=== PATIENT | female | born 1935 | race Caucasian/White ===

== ENCOUNTER 2017-03-20 11:15 | Emergency (ER) | payer OTHER ==
[~2017-03-20] VITALS: Ht 157.5 cm; Wt 79.5 kg
[~2017-03-20 11:15] MED LIST: ATOR20TA38 PO; BETH25TA39 PO; CARV12.579 PO; CHLO25TA13 PO; CHOL50009 PO; CLOP75TA27 PO; DOCU-144 PO; ERTA1VIA IV; LEVO50TA83 PO; METF500T4 PO; OMEP20CA16 PO; TAMS-14 PO
[2017-03-20 11:24] VITALS: Ht 157.5 cm; Wt 79.5 kg
--- NOTE | 2017-03-20 13:34 | ERD ---
ER Documentation Chief Complaint Date/Time DATE: 03/20/17 TIME: 13:32 Chief Complaint URINE RETENTION CATH PLACED MONDAY WANTS CATH CHECKED/REMOVED HPI This 81-year-old female presents with a history of urinary retention and catheter placement [id number] last week. She is here for catheter removal. She denies fevers, vomiting, history of UTI. She had this once before in the past. She believes the urinary retention may be an from long car rides and plane rides and holding her urine. She has a history of diabetes. ROS All systems reviewed and are negative except as per history of present illness. Medications Home Meds Active Scripts Ertapenem Sodium (Invanz) 1 Gm Vial.port, 1 GM IV DAILY for 9 Days Prov:HIRAM GARCIA V. TAILER IN 04/04/16 Tamsulosin Hcl* (Flomax*) 0.4 Mg Cap.er.24h, 0.4 MG PO HS for 30 Days, CAP Prov:GARCIAKARENA V. TAILER IN 04/04/16 Docusate Sodium* (Colace*) 100 Mg Capsule, 100 MG PO Q12H Y for CONSTIPATION for 30 Days, CAP Prov:GARCIAHIRAM V. TAILER IN 04/04/16 Bethanechol Chloride* (Urecholine*) 25 Mg Tab, 25 MG PO TID for 30 Days, TAB 3 Refills Prov:KAVITHA VAZQUEZ 01/03/16 Reported Medications Carvedilol* (Carvedilol*) 12.5 Mg Tablet, 12.5 MG PO BID, #60 TAB 03/31/16 Omeprazole* (Omeprazole*) 20 Mg Capsule.dr, 20 MG PO DAILY, CAP 06/11/15 Clopidogrel Bisulfate (Clopidogrel) 75 Mg Tablet, 75 MG PO DAILY, TAB 07/19/14 Atorvastatin Calcium* (Atorvastatin Calcium*) 20 Mg Tablet, 20 MG PO HS, TAB 07/19/14 Chlorthalidone* (Chlorthalidone*) 25 Mg Tablet, 25 MG PO DAILY, TAB 07/19/14 Metformin Hcl* (Metformin Hcl*) 500 Mg Tablet, 500 MG PO DAILY, TAB 07/19/14 Cholecalciferol* (Vitamin D*) 5,000 Unit Tablet, 5000 UNIT PO DAILY, #1 TAB 05/12/13 Levothyroxine Sodium* (Synthroid*) 50 Mcg Tablet, 50 MCG PO DAILY, #1 TAB 05/12/13 Allergies Allergies: Coded Allergies: No Known Allergies (Verified Allergy, Unknown, 03/31/16) PMhx/Soc Medical and Surgical Hx: pt denies Medical Hx, pt denies Surgical Hx History of Surgery: No Anesthesia Reaction: No Hx Neurological Disorder: Yes (CVA) Hx Respiratory Disorders: No Hx Cardiac Disorders: Yes (CAD,STENT) Hx Psychiatric Problems: No Hx Miscellaneous Medical Probl: Yes (UTI, hyponatremia,CAD,htn,obesity, hypothyroidism) Hx Alcohol Use: No Hx Substance Use: No Hx Tobacco Use: No Physical Exam Vitals Vital Signs Date Time Temp Pulse Resp B/P Pulse Ox O2 Delivery O2 Flow Rate FiO2 03/20/17 11:24 98.2 84 18 156/68 94 Physical Exam Const: []Alert, [id number]. Obese. Head: Atraumatic Eyes: Normal Conjunctiva ENT: Normal External Ears, Nose and Mouth. Neck: Full range of motion..~ No meningismus. Resp: Clear to auscultation bilaterally Cardio: Regular rate and rhythm, no murmurs Abd: Soft, non tender, non distended. Normal bowel sounds Skin: No petechiae or rashes Back: No midline or flank tenderness Ext: No cyanosis, or edema Neur: Awake and alert Psych: Normal Mood and Affect Procedures/MDM Greer catheter removed without complications. Patient presents with a history of hypertension currently improved as she is able to urinate. Patient was discharged home with primary care follow-up and return precautions. She is advised to return for fevers, vomiting, inability to urinate abdominal pain, new worsening symptoms with primary care doctor. The patient was stable with no new complaints during the ER course. Clinically, there is no current evidence to suggest meningitis, sepsis, acute abdomen, pneumonia, acute coronary syndrome, pulmonary embolism, or any other emergent condition appearing to require further evaluation or hospitalization. The patient should certainly return for any new or worsening symptoms per the aftercare instructions. They should otherwise follow-up with her primary care doctor for reevaluation this week. Departure Diagnosis: Primary Impression: Retention of urine Condition: Stable Patient Instructions: Urinary Retention, Female Additional Instructions: Cheque otro vez con peña doctor primario en el proximo steele or regresa para mas o nueva simptomas. TATYANA PRINGLE MD Mar 20, 2017 13:34
[2017-03-21] MEDS ORDERED: CEPH-443 PO (12:03)
[2017-03-21] MEDS ORDERED: PHEN-538 PO (12:03)
== END 2017-03-20 13:41 | disposition home or self-care (01) ==
LOC: FTE 11:15
DX: R33.9 Retention of urine, unspecified (principal); I25.10 Atherosclerotic heart disease of native coronary artery without angina pectoris; I10 Essential (primary) hypertension; E03.9 Hypothyroidism, unspecified; E66.9 Obesity, unspecified; Z68.32 Body mass index [BMI] 32.0-32.9, adult; Z79.84 Long term (current) use of oral hypoglycemic drugs; Z98.61 Coronary angioplasty status
CPT/HCPCS: 99283

== ENCOUNTER 2017-03-21 09:16 | Emergency (ER) | payer OTHER ==
[~2017-03-21] VITALS: Ht 149.9 cm; Wt 90.5 kg
[2017-03-21 09:35] VITALS: Ht 149.9 cm; Wt 90.5 kg
[2017-03-21] MEDS ORDERED: ONDANSETRON 4 MG INJ IV STA (09:57)
[2017-03-21] MEDS ORDERED: morphine 4 MG/ML VIAL IV STA (09:57)
[2017-03-21 10:56] LABS: BASOPHIL # 0.1 10^3/ul (0.0-0.1); BASOPHILS % 0.6 % (0.0-2.0); EOSINOPHILS # 0.3 10^3/ul (0.0-0.5); EOSINOPHILS % 2.7 % (0.0-7.0); HEMATOCRIT 32.4 % (37.0-47.0); HEMOGLOBIN 10.7 g/dl (12.0-16.0); LYMPHOCYTES # 2.2 10^3/ul (0.8-2.9); LYMPHOCYTES % 21.6 % (15.0-51.0); MEAN CORPUSCULAR HEMOGLOBIN 28.2 pg (29.0-33.0); MEAN CORPUSCULAR VOLUME 85.5 fl (82.0-101.0); MEAN PLATELET VOLUME 9.6 fl (7.4-10.4); MONOCYTE # 0.8 10^3/ul (0.3-0.9); MONOCYTES % 7.6 % (0.0-11.0); NEUTROPHILS % 67.2 % (39.0-77.0); PLATELET COUNT 204 10^3/UL (140-415); RED BLOOD COUNT 3.79 10^6/ul (4.20-5.40); RED CELL DISTRIBUTION WIDTH 13.8 % (11.5-14.5); WHITE BLOOD COUNT 10.1 10^3/ul (4.8-10.8)
--- NOTE | 2017-03-21 11:09 | RADRPT ---
PROCEDURE: CT Abdomen and Pelvis without contrast CLINICAL INDICATION: Abdominal pain TECHNIQUE: Transaxial images were obtained through the abdomen and pelvis on a multi-slice scanner without the intravenous contrast administration. No oral contrast had previously been given. Sagit abhi and coronal re-formations were subsequently reconstructed. One or more of the following dose reduction techniques were used: - Automated exposure control. - Adjustment of the mA and/or kV according to patient size. - Use of iterative reconstruction technique. Radiation dose: CTDIvol = 20.89 mGy; DLP = 1178.66 mGy-cm. COMPARISON: 07/19/2014 FINDINGS: Lung bases: The visualized lung bases appear unremarkable. Liver: Normal in size and in attenuation. There is no focal lesion. Gallbladder: Surgical taisha are again seen in the gallbladder fossa. Bile ducts: The intra and extrahepatic bile ducts are normal in caliber. Pancreas: Appears normal with no mass or inflammation evident. Spleen: Normal in size with no focal lesion. Adrenals: Normal with no mass identified. Kidneys, ureters and bladder: There is mild bilateral pelvocaliectasis and mild ureterectasis with n o intra renal mass or pathological calcification evident. There is minimal bilateral perinephric str anding. No ureterolith is evident. The bladder appears well distended and unremarkable. Reproductive organs: A 12 x 11 x 10 cm left adnexal cystic mass is identified which measures 16 HU i n density. This has slightly increased in size since the previous study. This lesion displaces the u terus significantly rightward. Stomach and bowel: The stomach is mildly distended with food debris. The sigmoid colon is mildly dis placed by the pelvic mass. A few diverticuli are seen within the colon. There is no evidence of hussain l obstruction or inflammation. Appendix: A normal vermiform appendix is evident. Peritoneum: No free intraperitoneal fluid or air is identified. Aorta: There is atherosclerotic vascular calcification but no abdominal aortic aneurysm is evident. IVC: Unremarkable. Lymph nodes: No pathologically enlarged nodes are identified. Osseous structures: There is moderate degenerative enthesopathy seen to the spine most extensive in the thoracic region. There is grade 1 anterolisthesis of L4 and L5 associated degenerative facet karyna nges. A 9 mm cyst is seen within the posterior left femoral head. IMPRESSION: 1. Since the previous CT of 07/19/2014, the left adnexal cystic mass has slightly increased in size now measuring 12 x 11 x 10 cm. The mass measures 16 HU in density with no nodularity or septations identified. This possibly represents an endometrioma. 2. The mass displaces sigmoid colon and the uterus is significantly deviated to the right. 3. There are a few colonic diverticuli but no evidence of bowel obstruction or inflammation. A norm al vermiform appendix is evident. 4. Mild pelvocaliectasis and minimal dilatation of the ureters, likely related to compression secon renetta to the pelvic mass. No ureterolith is identified. 5. There is again evidence of a previous cholecystectomy not associated bile duct dilatation. 6. Atherosclerotic vascular calcification. 7. Degenerative enthesopathy seen to the spine most extensive within the thoracic region. There is grade 1 anterolisthesis of L4 and L5 with degenerative facet changes. A 9 mm cyst is seen in the pos terior left femoral head, slightly increased in size. Physician Ricky Date Time Electronically viewed and signed by Physician Ricky on 03/21/2017 11:08 /
[2017-03-21 11:15] LABS: ALANINE AMINOTRANSFERASE 36 IU/L (13-69); ALBUMIN 3.9 g/dl (3.3-4.9); ALBUMIN/GLOBULIN RATIO 1.21; ALKALINE PHOSPHATASE 86 IU/L (42-121); ASPARTATE AMINO TRANSFERASE 21 IU/L (15-46); BILIRUBIN,INDIRECT 0.5 mg/dl (0-1.1); BILIRUBIN,TOTAL 0.5 mg/dl (0.2-1.3); BLOOD UREA NITROGEN 19 mg/dl (7-20); CALCIUM 9.3 mg/dl (8.4-10.2); CARBON DIOXIDE 31 mmol/L (21-31); CHLORIDE 95 mmol/L (97-110); GLUCOSE 111 mg/dl (70-220); POTASSIUM 4.3 mmol/L (3.5-5.1); TOTAL PROTEIN 7.1 g/dl (6.1-8.1)
[2017-03-21 11:28] LABS: ANION GAP 11 (8-16); SODIUM 133 mmol/L (135-144)
[2017-03-21 11:37] LABS: ADD UMIC YES; UR AMORPHOUS CRYSTAL FEW /HPF (NONE SEEN); UR ASCORBIC ACID NEGATIVE (NEGATIVE); UR BACTERIA FEW /HPF (NONE SEEN); UR BILIRUBIN (Dip) NEGATIVE (NEGATIVE); UR BLOOD (Dip) 2+ mg/dL (NEGATIVE); UR CLARITY CLOUDY (CLEAR); UR COLOR YELLOW (YELLOW); UR GLUCOSE (Dip) NEGATIVE (NEGATIVE); UR KETONES (Dip) NEGATIVE (NEGATIVE); UR LEUKOCYTE ESTERASE (Dip) 3+ Leu/ul (NEGATIVE); UR NITRITE (Dip) POSITIVE (NEGATIVE); UR NONSQUAMOUS EPITHELIAL CELL 1 /HPF (NONE SEEN); UR RBC 24 /HPF (0-5); UR SPECIFIC GRAVITY (Dip) 1.009 (1.003-1.030); UR TOTAL PROTEIN (Dip) 1+ mg/dl (NEGATIVE); UR UROBILINOGEN (Dip) NEGATIVE (NEGATIVE); UR WBC CLUMPS MANY /HPF (NONE SEEN)
[2017-03-21 11:45] LABS: TROPONIN-I < 0.012 ng/ml (0.00-0.12)
[2017-03-21] MEDS ORDERED: PHEN-538 PO (12:03)
[2017-03-21] MEDS ORDERED: CEPH-443 PO (12:03)
--- NOTE | 2017-03-21 12:06 | ERD ---
ER Documentation Chief Complaint Date/Time DATE: 03/21/17 TIME: 12:05 Chief Complaint ap x 6 days, difficulty urination; no n/v; no dizziness; fell yesterday HPI Patient is an 81-year-old female with diabetes and high cholesterol who presents with abdominal pain. The patient has lower abdominal pain and says "I cannot pee". It started 6 days ago. The pain has been constant. She has had no treatment as of yet. She denies fevers. Upon review of old medical records this is the patient's 10th visit to the ER since 2012 and she was seen on March 20 which was yesterday for urinary retention and a catheter was removed. Her primary doctor is Dr. Negron. ROS All systems reviewed and are negative except as per history of present illness. Medications Home Meds Active Scripts Phenazopyridine Hcl* (Pyridium*) 200 Mg Tab, 200 MG PO TID Y for URINARY PAIN, # 6 TAB Prov:CITLALY JACOBO MD 03/21/17 Cephalexin* (Keflex*) 500 Mg Capsule, 500 MG PO QID for 7 Days, CAP Prov:CITLALY JACOBO MD 03/21/17 Ertapenem Sodium (Invanz) 1 Gm Vial.port, 1 GM IV DAILY for 9 Days Prov:HIRAM GARCIA NP 04/04/16 Tamsulosin Hcl* (Flomax*) 0.4 Mg Cap.er.24h, 0.4 MG PO HS for 30 Days, CAP Prov:HIRAM GARCIA NP 04/04/16 Docusate Sodium* (Colace*) 100 Mg Capsule, 100 MG PO Q12H Y for CONSTIPATION for 30 Days, CAP Prov:HIRAM GARCIA V. FOUNTAIN WORKER 04/04/16 Bethanechol Chloride* (Urecholine*) 25 Mg Tab, 25 MG PO TID for 30 Days, TAB 3 Refills Prov:KAVITHA VAZQUEZ 01/03/16 Reported Medications Carvedilol* (Carvedilol*) 12.5 Mg Tablet, 12.5 MG PO BID, #60 TAB 03/31/16 Omeprazole* (Omeprazole*) 20 Mg Capsule.dr, 20 MG PO DAILY, CAP 06/11/15 Clopidogrel Bisulfate (Clopidogrel) 75 Mg Tablet, 75 MG PO DAILY, TAB 07/19/14 Atorvastatin Calcium* (Atorvastatin Calcium*) 20 Mg Tablet, 20 MG PO HS, TAB 07/19/14 Chlorthalidone* (Chlorthalidone*) 25 Mg Tablet, 25 MG PO DAILY, TAB 07/19/14 Metformin Hcl* (Metformin Hcl*) 500 Mg Tablet, 500 MG PO DAILY, TAB 07/19/14 Cholecalciferol* (Vitamin D*) 5,000 Unit Tablet, 5000 UNIT PO DAILY, #1 TAB 05/12/13 Levothyroxine Sodium* (Synthroid*) 50 Mcg Tablet, 50 MCG PO DAILY, #1 TAB 05/12/13 Allergies Allergies: Coded Allergies: No Known Allergies (Verified Allergy, Unknown, 03/31/16) PMhx/Soc History of Surgery: No Anesthesia Reaction: No Hx Neurological Disorder: Yes (CVA) Hx Respiratory Disorders: No Hx Cardiac Disorders: Yes (CAD,STENT) Hx Psychiatric Problems: No Hx Miscellaneous Medical Probl: Yes (UTI, hyponatremia,CAD,htn,obesity, hypothyroidism) Hx Alcohol Use: No Hx Substance Use: No Hx Tobacco Use: No Smoking Status: Never smoker FmHx Family History: No diabetes Physical Exam Vitals Vital Signs Date Time Temp Pulse Resp B/P Pulse Ox O2 Delivery O2 Flow Rate FiO2 03/21/17 09:35 97.9 72 18 170/73 95 Physical Exam Const: Moderate distress secondary to pain Head: Atraumatic Eyes: Normal Conjunctiva ENT: Normal External Ears, Nose and Mouth. Neck: Full range of motion..~ No meningismus. Resp: Clear to auscultation bilaterally Cardio: Regular rate and rhythm, no murmurs Abd: Soft, Lower abdominal pain diffusely with palpation without rebound or guarding Skin: No petechiae or rashes Back: No midline or flank tenderness Ext: No cyanosis, or edema Neur: Awake and alert Psych: Normal Mood and Affect Result Diagram: 03/21/17 1030 03/21/17 1030 Results 24 hrs Laboratory Tests Test 03/21/17 10:30 03/21/17 11:00 White Blood Count 10.110^3/ul Red Blood Count 3.7910^6/ul Hemoglobin 10.7g/dl Hematocrit 32.4% Mean Corpuscular Volume 85.5fl Mean Corpuscular Hemoglobin 28.2pg Mean Corpuscular Hemoglobin Concent 33.0g/dl Red Cell Distribution Width 13.8% Platelet Count 85888^3/UL Mean Platelet Volume 9.6fl Neutrophils % 67.2% Lymphocytes % 21.6% Monocytes % 7.6% Eosinophils % 2.7% Basophils % 0.6% Nucleated Red Blood Cells % 0.0/100WBC Neutrophils # (Manual) 6.810^3/ul Lymphocytes # 2.210^3/ul Monocytes # 0.810^3/ul Eosinophils # 0.310^3/ul Basophils # 0.110^3/ul Nucleated Red Blood Cells # 0.010^3/ul Sodium Level 133mmol/L Potassium Level 4.3mmol/L Chloride Level 95mmol/L Carbon Dioxide Level 31mmol/L Anion Gap 11 Blood Urea Nitrogen 19mg/dl Creatinine 0.90mg/dl Glucose Level 111mg/dl Calcium Level 9.3mg/dl Total Bilirubin 0.5mg/dl Direct Bilirubin 0.00mg/dl Indirect Bilirubin 0.5mg/dl Aspartate Amino Transf (AST/SGOT) 21IU/L Alanine Aminotransferase (ALT/SGPT) 36IU/L Alkaline Phosphatase 86IU/L Troponin I < 0.012ng/ml Total Protein 7.1g/dl Albumin 3.9g/dl Globulin 3.20g/dl Albumin/Globulin Ratio 1.21 Lipase 106U/L Urine Color YELLOW Urine Clarity CLOUDY Urine pH 6.0 Urine Specific Warren 1.009 Urine Ketones NEGATIVEmg/dL Urine Nitrite POSITIVEmg/dL Urine Bilirubin NEGATIVEmg/dL Urine Urobilinogen NEGATIVEmg/dL Urine Leukocyte Esterase 3+Glendy/ul Urine Microscopic RBC 24/HPF Urine Microscopic WBC > 182/HPF Urine Amorphous Crystals FEW/HPF Urine Bacteria FEW/HPF Urine Hemoglobin 2+mg/dL Urine Glucose NEGATIVEmg/dL Urine Total Protein 1+mg/dl Current Medications Medications (Trade) Dose Ordered Sig/Vikki Route PRN Reason Start Time Stop Time Status Last Admin Dose Admin Morphine Sulfate (morphine) 4 mg ONCE STAT IV 03/21/17 09:57 03/21/17 09:58 DC 03/21/17 10:35 Ondansetron HCl (Zofran Inj) 4 mg ONCE STAT IV 03/21/17 09:57 03/21/17 09:58 DC 03/21/17 10:35 Cephalexin (Keflex) 500 mg ONCE ONCE PO 03/21/17 12:30 03/21/17 12:31 Procedures/[facility] EKG read by me: Rate/Rhythm: Regular rate and rhythm at a rate of 69 Intervals: Normal Impression: No evidence of ischemia or arrhythmia CT shows what appears to be a large endometrioma per radiology. Patient is a 81-year-old female presents with lower abdominal pain and urinary retention. A Greer catheter was placed and this will be placed to a leg bag. Urinalysis shows acute infection the patient will be treated with a one-week course of Keflex. The patient also has a large endometrioma as seen on CT scan but this was seen on prior CT scan in 2014. 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 I have given her copies of her laboratory studies and CT scan report. I doubt appendicitis, cholecystitis, pancreatitis, or bowel obstruction. I believe outpatient management is appropriate but the patient will need close follow-up with her primary doctor within 24-48 hours. The patient will be given Keflex and Pyridium. Departure Diagnosis: Primary Impression: Cystitis Additional Impressions: Ovarian cyst Laterality: left Qualified Code: N83.202 - Cyst of left ovary Abdominal pain Abdominal location: lower abdomen, unspecified Qualified Code: R10.30 - Lower abdominal pain Condition: Fair Patient Instructions: Abdominal Pain, Cystitis Additional Instructions: Llame al doctor MAANA y michelle angus PB PARA DENTRO DE 1-2 TERESA.Dgale a la secretaria que nosotros le instruimos hacer esta pb.Avise o llame si peña condicin se empeora antes de la pb. Regresa aqui si peor o no mejor. CITLALY JACOBO MD Mar 21, 2017 12:06
[2017-03-21] MEDS ORDERED: CEPHALEXIN 500 MG CAP PO ONE (12:30)
== END 2017-03-21 13:56 | disposition home or self-care (01) ==
LOC: E/R 09:16
DX: N30.90 Cystitis, unspecified without hematuria (principal); N83.202 Unspecified ovarian cyst, left side; R10.84 Generalized abdominal pain; I25.10 Atherosclerotic heart disease of native coronary artery without angina pectoris; I10 Essential (primary) hypertension; E66.9 Obesity, unspecified; E03.9 Hypothyroidism, unspecified; E11.9 Type 2 diabetes mellitus without complications; Z98.61 Coronary angioplasty status; Z79.84 Long term (current) use of oral hypoglycemic drugs; Z68.41 Body mass index [BMI] 40.0-44.9, adult
CPT/HCPCS: 74176; 80053; 81001; 83690; 84484; 85025; 93005; 96374; 96375; J2270; J2405; Z7502; Z7610

== ENCOUNTER 2017-03-29 09:11 | Inpatient (IN) | payer OTHER ==
[2017-03-29] VITALS (8 sets, daily range): BP systolic 112–213; BP diastolic 51–91; PULSE 58–74; RESP 12–18; Ht 154.9 cm; Wt 90.8 kg
[~2017-03-29] VITALS: Ht 154.9 cm; Wt 90.8 kg
[~2017-03-29 09:11] MED LIST changes: +CEPH-443 PO; +PHEN-538 PO
[2017-03-29 10:08] LABS: BASOPHIL # 0.1 10^3/ul (0.0-0.1); BASOPHILS % 0.7 % (0.0-2.0); EOSINOPHILS # 0.4 10^3/ul (0.0-0.5); EOSINOPHILS % 4.4 % (0.0-7.0); HEMATOCRIT 34.3 % (37.0-47.0); HEMOGLOBIN 11.5 g/dl (12.0-16.0); LYMPHOCYTES # 2.3 10^3/ul (0.8-2.9); LYMPHOCYTES % 27.4 % (15.0-51.0); MEAN CORPUSCULAR HEMOGLOBIN 28.5 pg (29.0-33.0); MEAN CORPUSCULAR HGB CONC 33.5 g/dl (32.0-37.0); MEAN CORPUSCULAR VOLUME 85.1 fl (82.0-101.0); MEAN PLATELET VOLUME 9.3 fl (7.4-10.4); MONOCYTE # 0.6 10^3/ul (0.3-0.9); MONOCYTES % 6.9 % (0.0-11.0); NEUTROPHIL # 5.1 10^3/ul (1.6-7.5); NEUTROPHILS % 60.1 % (39.0-77.0); PLATELET COUNT 233 10^3/UL (140-415); RED BLOOD COUNT 4.03 10^6/ul (4.20-5.40); RED CELL DISTRIBUTION WIDTH 13.5 % (11.5-14.5); WHITE BLOOD COUNT 8.4 10^3/ul (4.8-10.8)
[2017-03-29 10:12] LABS: ADD UMIC NO; UR ASCORBIC ACID NEGATIVE (NEGATIVE); UR BILIRUBIN (Dip) NEGATIVE (NEGATIVE); UR BLOOD (Dip) NEGATIVE (NEGATIVE); UR CLARITY CLEAR (CLEAR); UR COLOR YELLOW (YELLOW); UR GLUCOSE (Dip) NEGATIVE (NEGATIVE); UR KETONES (Dip) NEGATIVE (NEGATIVE); UR LEUKOCYTE ESTERASE (Dip) NEGATIVE Leu/ul (NEGATIVE); UR NITRITE (Dip) NEGATIVE (NEGATIVE); UR SPECIFIC GRAVITY (Dip) 1.006 (1.003-1.030); UR TOTAL PROTEIN (Dip) NEGATIVE (NEGATIVE); UR UROBILINOGEN (Dip) NEGATIVE (NEGATIVE)
[2017-03-29 10:27] LABS: ALBUMIN 4.4 g/dl (3.3-4.9); ALBUMIN/GLOBULIN RATIO 1.22; BILIRUBIN,DIRECT 0.1 mg/dl (0.00-0.20); BILIRUBIN,INDIRECT 1.1 mg/dl (0-1.1); BILIRUBIN,TOTAL 1.2 mg/dl (0.2-1.3); CALCIUM 9.5 mg/dl (8.4-10.2); CREATININE 0.86 mg/dl (0.44-1.00); POTASSIUM 4.7 mmol/L (3.5-5.1)
--- NOTE | 2017-03-29 11:11 | RADRPT ---
PROCEDURE: CT Abdomen and pelvis without contrast. CLINICAL INDICATION: Difficulty urinating. Abdominal pain. TECHNIQUE: CT scan of the abdomen and pelvis without contrast was performed on a multidetector hig h-resolution CT scan. . Coronal and sagittal reformatted images were obtained from the axial [facility] e images. Standard CT scan of the abdomen pelvis without contrast protocols were performed. The total exam CTDI equals 20.71 mGy and the total exam DLP equals 1229.68 mGy-cm. One or more of the following dose reduction techniques were used: - Automated exposure control. - Adjustment of the mA and/or kV according to patient size. Use of iterative reconstruction technique. COMPARISON: CT abdomen pelvis 03/21/2017 FINDINGS: Again noted is a large approximately 12 cm left adnexal cystic mass unchanged in size and configurat ion with Hounsfield units of 16. This finding may represent an endometrioma. . No new adnexal masses . The left adnexal cystic mass displaces adjacent colon as well as displaces the uterus to the right of midline. Negative for intra-abdominal free air, free fluid, abscesses or lymphadenopathy. The kidneys are normal in size without calcified renal calculi or intra renal masses bilaterally. Th ere is persistent mild pelvocaliectasis bilaterally and minimal hydroureter bilaterally likely relat ed to compression secondary to the large pelvic mass. A Greer catheter is within a nondistended urin ric bladder which contains gas likely iatrogenic. The urinary bladder is otherwise unremarkable. The appendix is unremarkable. There diverticular changes of the distal descending and sigmoid colon but no CT evidence of diverticulitis. Remainder the colon is unremarkable. There is a small hiatal h ernia with the stomach otherwise unremarkable. The small bowel is unremarkable. The liver spleen pancreas and adrenal glands are unremarkable. Status post cholecystectomy without b iliary ductal dilation. There is atherosclerosis of the aorta and iliac arteries but no aneurysm. The abdominal pelvic metzger are unremarkable. The lung bases are unremarkable. There are degenerative changes lower thoracic and lumbar spine but no acute osseous findings are ost eoblastic/osteolytic lesions. There is a minimal grade 1 anterior spondylolisthesis of L4 on L5 vert ebral bodies mild degenerate joint disease of both hips. IMPRESSION: 1. Persistent unchanged approximately 12 cm left adnexal cystic mass with Hounsfield units of 16 li pedro luis an endometrioma. No other adnexal masses. 2. Mild bilateral pelvocaliectasis and minimal bilateral hydroureter likely related to compression secondary to the large pelvic mass. No calcified urinary calculi. 3. Greer catheter within a nondistended urinary bladder containing gas likely iatrogenic. 4. Small hiatal hernia. 5. Diverticulosis of the distal descending and sigmoid colon but no CT evidence of diverticulitis. 6. Status post cholecystectomy without biliary ductal dilation. RPTAT:AAJJ Physician Rashida Date Time Electronically viewed and signed by Madalyn Winkler Physician on 03/29/2017 11:11 BM/
--- NOTE | 2017-03-29 12:40 | ERA ---
ER Documentation Chief Complaint Date/Time DATE: 03/29/17 TIME: 12:35 Chief Complaint urinary retention since fc was taken out yest HPI 81 female presents the emergency department with urinary retention. Patient has a long-standing history of a known suspected ovarian mass. She has had previous urinary retention and has had catheters placed. She presents to the emergency department today with ongoing urinary retention after catheter had been removed. She reports no fevers, chills, vomiting, abdominal pain. She reports no flank pain. She reports no hematuria. ROS All systems reviewed and are negative except as per history of present illness. Medications Home Meds Active Scripts Phenazopyridine Hcl* (Pyridium*) 200 Mg Tab, 200 MG PO TID Y for URINARY PAIN, # 6 TAB Prov:CITLALY JACOBO MD 03/21/17 Cephalexin* (Keflex*) 500 Mg Capsule, 500 MG PO QID for 7 Days, CAP Prov:CITLALY JACOBO MD 03/21/17 Tamsulosin Hcl* (Flomax*) 0.4 Mg Cap.er.24h, 0.4 MG PO HS for 30 Days, CAP Prov:HIRAM GARCIA NP 04/04/16 Bethanechol Chloride* (Urecholine*) 25 Mg Tab, 25 MG PO TID for 30 Days, TAB 3 Refills Prov:KAVITHA VAZQUEZ 01/03/16 Reported Medications Carvedilol* (Carvedilol*) 12.5 Mg Tablet, 12.5 MG PO BID, #60 TAB 03/31/16 Omeprazole* (Omeprazole*) 20 Mg Capsule.dr, 20 MG PO DAILY, CAP 06/11/15 Clopidogrel Bisulfate (Clopidogrel) 75 Mg Tablet, 75 MG PO DAILY, TAB 07/19/14 Atorvastatin Calcium* (Atorvastatin Calcium*) 20 Mg Tablet, 20 MG PO HS, TAB 07/19/14 Chlorthalidone* (Chlorthalidone*) 25 Mg Tablet, 25 MG PO DAILY, TAB 07/19/14 Metformin Hcl* (Metformin Hcl*) 500 Mg Tablet, 500 MG PO DAILY, TAB 07/19/14 Cholecalciferol* (Vitamin D*) 5,000 Unit Tablet, 5000 UNIT PO DAILY, #1 TAB 05/12/13 Levothyroxine Sodium* (Synthroid*) 50 Mcg Tablet, 50 MCG PO DAILY, #1 TAB 05/12/13 Discontinued Scripts Ertapenem Sodium (Invanz) 1 Gm Vial.port, 1 GM IV DAILY for 9 Days Prov:GARCIA,HIRAM V. MACHINERY MOVER 04/04/16 Docusate Sodium* (Colace*) 100 Mg Capsule, 100 MG PO Q12H Y for CONSTIPATION for 30 Days, CAP Prov:GARCIA,HIRAM V. MACHINERY MOVER 04/04/16 Allergies Allergies: Coded Allergies: No Known Allergies (Verified Allergy, Unknown, 03/29/17) PMhx/Soc History of Surgery: No Anesthesia Reaction: No Hx Neurological Disorder: Yes (CVA) Hx Respiratory Disorders: No Hx Cardiac Disorders: Yes (CAD,STENT) Hx Psychiatric Problems: No Hx Miscellaneous Medical Probl: Yes (UTI, hyponatremia,CAD,htn,obesity, hypothyroidism) Hx Alcohol Use: No Hx Substance Use: No Hx Tobacco Use: No Smoking Status: Never smoker FmHx Noncontributory for chief complaint with supportive daughter at bedside Physical Exam Vitals Vital Signs Date Time Temp Pulse Resp B/P Pulse Ox O2 Delivery O2 Flow Rate FiO2 03/29/17 10:59 62 18 193/73 96 Room Air 03/29/17 09:20 97.5 80 20 213/85 95 Physical Exam GENERAL: Elderly female in no acute distress HEENT: Pupils equal, round, and reactive to light. EOMI. There is no scleral icterus. NECK: C-spine is soft and supple, there is no meningismus. There is no cervical lymphadenopathy. LUNGS: Clear to auscultation bilaterally. There are no rales, wheezes or rhonchi. HEART: Regular rate and rhythm, no murmurs, clicks, rubs or gallops. ABDOMEN: Soft, non-tender, non-distended. There are bowel sounds in all four quadrants. No rebound or guarding. No CVAT EXTREMITIES: There is no peripheral cyanosis or edema. No focal swelling or erythema. NEURO: The patient moves all four extremities with 5/5 strength. Cranial nerves II - XII are intact. Normal gait. Alert and oriented SKIN: There is no apparent rash or petechiae. HEME/LYMPHATIC: There is no evidence of excessive bruising or lymphedema. PSYCHIATRIC: The patient does not appear anxious or depressed. Result Diagram: 9/20/17 0955 9/20/17 0955 Results 24 hrs Laboratory Tests Test 03/29/17 09:44 03/29/17 09:55 Urine Color YELLOW Urine Clarity CLEAR Urine pH 7.0 Urine Specific [place] 1.006 Urine Ketones NEGATIVEmg/dL Urine Nitrite NEGATIVEmg/dL Urine Bilirubin NEGATIVEmg/dL Urine Urobilinogen NEGATIVEmg/dL Urine Leukocyte Esterase NEGATIVELeu/ul Urine Hemoglobin NEGATIVEmg/dL Urine Glucose NEGATIVEmg/dL Urine Total Protein NEGATIVEmg/dl White Blood Count 8.410^3/ul Red Blood Count 4.0310^6/ul Hemoglobin 11.5g/dl Hematocrit 34.3% Mean Corpuscular Volume 85.1fl Mean Corpuscular Hemoglobin 28.5pg Mean Corpuscular Hemoglobin Concent 33.5g/dl Red Cell Distribution Width 13.5% Platelet Count 96838^3/UL Mean Platelet Volume 9.3fl Neutrophils % 60.1% Lymphocytes % 27.4% Monocytes % 6.9% Eosinophils % 4.4% Basophils % 0.7% Nucleated Red Blood Cells % 0.0/100WBC Neutrophils # 5.110^3/ul Lymphocytes # 2.310^3/ul Monocytes # 0.610^3/ul Eosinophils # 0.410^3/ul Basophils # 0.110^3/ul Nucleated Red Blood Cells # 0.010^3/ul Sodium Level 132mmol/L Potassium Level 4.7mmol/L Chloride Level 94mmol/L Carbon Dioxide Level 28mmol/L Anion Gap 15 Blood Urea Nitrogen 16mg/dl Creatinine 0.86mg/dl Glucose Level 128mg/dl Calcium Level 9.5mg/dl Total Bilirubin 1.2mg/dl Direct Bilirubin 0.10mg/dl Indirect Bilirubin 1.1mg/dl Aspartate Amino Transf (AST/SGOT) 25IU/L Alanine Aminotransferase (ALT/SGPT) 34IU/L Alkaline Phosphatase 93IU/L Total Protein 8.0g/dl Albumin 4.4g/dl Globulin 3.60g/dl Albumin/Globulin Ratio 1.22 Lipase 126U/L Procedures/MDM Patient was taken to a room, seen and evaluated. Comfort measures were initiated. Diagnostic tests were ordered and reviewed. RADIOLOGY: reviewed with the radiologist, old CT scans were reviewed as well CONSULTATION: hospitalist was notified for admission. I spoke with the CONSUMER LOAN UNDERWRITER on-call who indicated she would be available for consult if necessary but recommended urology consultation first and possibility of SALES REPRESENTATIVE oncology after that if necessary REEVALUATION: After placement of the Greer catheter, patient was much more comfortable. She drained approximate 700 cc of essentially clear urine there is no gross hematuria after that or postobstructive diuresis MEDICAL DECISION MAKIN-year-old female presents the emergency department and urinary retention. The urinary retention has been improved with the placement of the catheter. However, my concern is that she has a large likely gynecologic mass which is significantly abnormal in her age group and likely to be malignant especially since it is growing and causing urinary retention symptoms. Patient has no outpatient follow-up appropriate for her or available to her at this time. She will be admitted to the hospital at this time for gynecologic and urologic evaluation. Departure Diagnosis: Primary Impression: Urinary retention Additional Impression: Ovarian mass Condition: VIVEK Casas Mar 29, 2017 12:40
[2017-03-29] MEDS ORDERED: ONDANSETRON 4 MG INJ IV PRN (13:30)
[2017-03-29] MEDS ORDERED: NACL 0.9% 3 ML SYG IV SCH (13:30)
--- NOTE | 2017-03-29 13:37 | HP ---
Date/Time of Note Date/Time of Note DATE: 03/29/17 TIME: 13:36 Assessment/Plan VTE Prophylaxis VTE Prophylaxis Intervention: heparin Assessment/Plan Assessment/Plan 1. 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 Dr. Moreno was called and awaiting recommendations. Appreciate consultation - Will consult urology if sandwich and drink cart operator onc does not feel as if retention is secondary to mass 2. Anemia - Will order iron studies and FOBT 3. Hyponatremia 4. DM - Was on Metformin at home and will hold - ISS and accuchecks - Will check A1c 5. HTN - Restarted home medications - PRN Labetalol and Hydralazine to keep SBP <160 6. CAD s/p stent 4 years ago - Continue on Plavix 7. HLP - statin 8. Diet - heart healthy 9. DVT - heparin 10. Code status - DNR 11. Disposition - Med/Surg for further evaluation of mass/urinary retention >40 minutes was spent with patient at time of admission HPI/ROS Admit Date/Time Admit Date/Time 03/29/17 Hx of Present Illness 81 yo F with PMH HTN, hypothyroidism, diabetes, HLD, CAD, and arthritis presents to ED with urinary retention and abdominal bloating. Patients family was at bedside and history obtained from patient and family member. Patient states she has been experiencing urinary retention since last December 2015 and has been self catheterizing. She had a catheter placed recently and when removed began experiencing suprapubic discomfort, bloating, and urinary retention. She has been to this ED multiple times for this same reason. CT abdomen and pelvis was performed which showed a 12cm L adnexal cystic mass and never followed up with anyone after initially discovered last December since had difficulty finding a sandwich and drink cart operator. She denies any appetite change, weight loss, fevers, nausea, vomiting, chills, or other abdominal issues. Home Insurance Agent was contacted in the ED who recommended consulting sandwich and drink cart operator onc. Patient is willing to undergo surgical intervention if indicated. ROS Constitutional: fatigue, No chills, No diaphoresis, No nausea Eyes: no complaints ENT: no complaints Respiratory: No cough, No shortness of breath, No sputum Cardiovascular: no complaints, No chest pain, No lightheadedness, No palpitations Gastrointestinal: pain (suprapubic), No constipation, No diarrhea, No nausea Genitourinary: dysuria, other (urinary retention), No discharge, No flank pain, No hematuria Musculoskeletal: no complaints Skin: no complaints Neurologic: no complaints Endocrine: no complaints Lymphatic: no complaints Psychological: no complaints Immunologic: no complaints PMH/Family/Social Past Medical History Medical History: coronary artery disease, diabetes, high cholesterol, hypertension, hypothyroid, other (arthritis) Past Surgical History Past Surgical Hx: other (stent placement 4 years ago) Family History Significant Family History: no pertinent family hx Social History Alcohol Use: none Smoking Status: Never smoker Drug Use: none Exam/Review of Systems Vital Signs Vitals Vital Signs Date Time Temp Pulse Resp B/P Pulse Ox O2 Delivery O2 Flow Rate FiO2 03/29/17 10:59 62 18 193/73 96 Room Air 03/29/17 09:20 97.5 Exam Constitutional: alert, oriented, well developed Psych: nl mood/affect Head: atraumatic, normocephalic Eyes: EOMI, PERRL, nl sclera ENMT: mucosa pink and moist, nl external ears & nose Neck: non-tender, supple Respiratory: clear to auscultation, normal air movement, No crackles/rales, No diminished breath sounds, No wheezing Cardiovascular: edema, regular rate and rhythm, systolic murmur Gastrointestinal: distended, mass, soft, tender (suprapubic area), No firm, No rebound or guarding Genitourinary - Female: No CVA tenderness Musculoskeletal: nl extremities to inspection Extremities: normal pulses Neurological: SERVICE SUPERVISOR II-XII intact, nl mental status, nl speech, nl strength Skin: nl turgor Lymph: nl lymph nodes Labs Result Diagram: 03/29/1795403/29/17954 Medications Medications Current Medications Atorvastatin Calcium (Lipitor) 20 mg HS PO ; Start 03/29/17 at 21:00; Status UNV Bethanechol Chloride (Urecholine) 25 mg TID PO ; Start 03/29/17 at 21:00; Status UNV Carvedilol (Coreg) 12.5 mg BID PO ; Start 03/29/17 at 13:30; Status UNV Chlorthalidone (Hygroton) 25 mg DAILY PO ; Start 03/30/17 at 09:00; Status UNV Cholecalciferol (Vitamin D) 5,000 unit DAILY PO ; Start 03/30/17 at 09:00; Status UNV Clopidogrel Bisulfate (plaVIX) 75 mg DAILY PO ; Start 03/30/17 at 09:00; Status UNV Levothyroxine Sodium (Synthroid) 50 mcg DAILY PO ; Start 03/30/17 at 09:00; Status UNV Tamsulosin HCl (Flomax) 0.4 mg HS PO ; Start 03/29/17 at 21:00; Status UNV Miscellaneous Information 20 mg 20 mg DAILY PO ; Start 03/30/17 at 09:00; Status UNV Sodium Chloride (NS) 1,000 ml @ 75 mls/hr [id number] IV ; Start 03/29/17 at 13:21 ; Status UNV Ondansetron HCl (Zofran Inj) 4 mg Q6H PRN IV NAUSEA AND/OR VOMITING; Start at 13:30; Status UNV Acetaminophen (Tylenol Tab) 650 mg Q6H PRN PO PAIN LEVEL 1-3 OR FEVER; Start at 13:30; Status UNV Docusate Sodium (Colace) 100 mg Q12H PRN PO CONSTIPATION; Start 03/29/17 at 13: 30; Status UNV Heparin Sodium (Porcine) (Heparin (5000 Units/0.5 ml)) 5,000 unit Q8 SC ; Start 03/29/17 at 14:00; Status UNV Miscellaneous Information (* Miscellaneous Pharmacy Order) Discontinue current oral sulfonylur... ONCE ONCE XX ; Start 03/29/17 at 13:30; Stop 03/29/17 at 13: 31; Status UNV Diagnostic Test (Pha) (Accu-Chek) 1 XX ; Start 03/30/17 at 02:00; Status UNV Miscellaneous Information (* Miscellaneous Pharmacy Order) HYPOGLYCEMIA PROTOCOL w... ONCE ONCE XX ; Start 03/29/17 at 13:30; Stop 03/29/17 at 13:31; Status UNV Miscellaneous Information (* Miscellaneous Pharmacy Order) Discontinue all previ... ONCE ONCE XX ; Start 03/29/17 at 13:30; Stop 03/29/17 at 13:31; Status UNV SUSAN GUEVARA MD Mar 29, 2017 13:37
[2017-03-29] MEDS ORDERED: DEXTROSE 50% 50 ML SYRINGE IV PRN ×2 (14:00)
[2017-03-29] MEDS ORDERED: GLUCAGON 1 MG INJ IM PRN (14:00)
[2017-03-29] MEDS ORDERED: GLUCOSE GEL 15 GRAM TUBE PO PRN ×2 (14:00)
[2017-03-29] MEDS ORDERED: GLUCOSE GEL 15 GRAM TUBE BUCCAL PRN (14:00)
[2017-03-29] MEDS ORDERED: DOCUSATE SODIUM 100 MG CAP PO PRN (14:00)
[2017-03-29] MEDS ORDERED: LABETALOL HCL 20MG INJ IV PRN (15:00)
[2017-03-29] MEDS: SOD CHLORIDE 0.9% 1,000 ML IV SCH (15:00)
[2017-03-29] MEDS: HEPARIN 5,000 UNIT/0.5 ML VIAL SC SCH ×2 (15:02→21:28)
[2017-03-29] MEDS ORDERED: hydrALAzine 20 MG INJ ONE (15:24)
[2017-03-29] MEDS: hydrALAzine 20 MG INJ IV PRN (15:34)
[2017-03-29] MEDS: BETHANECHOL 25 MG TAB PO SCH ×2 (16:14→21:27)
[2017-03-29] MEDS: INSULIN ASPART [NOVOLOG] 3 ML PEN SC SCH ×2 (17:35→21:00)
[2017-03-29] MEDS: TAMSULOSIN (SR) 0.4 MG CAP PO SCH (21:27)
[2017-03-29] MEDS: ATORVASTATIN 20 MG TAB PO SCH (21:27)
--- NOTE | 2017-03-29 22:27 | CONS ---
Date/Time of Note Date/Time of Note DATE: 03/29/17 TIME: 22:25 Consultation Date/Type/Reason Admit Date/Time 03/29/17 Hx of Present Illness Koki Reagan M.D. [facility] History and Physical Examination/ Consultation Danay Fishman Date:Mar 29, 2017 :1935 Age: 81 Physicians: Shellfish Manager Senior Financial Reporting Accountant Oncologist Referring MD: History of the Present Illness: A 81 year old female with a gradually increasing pelvic mass. The mass is complex and 12 cm rt sided assocaited with discomfort and urinary retention Medical history/ROS: all other systems unremarkable. Surgical history: no significant abdominal procedures, stent placement. Medications: reviewed gardisil Allergies: No active allergies recorded Family Hx: non-contributary Social HX: non-contributary ROS: as above Colonoscopy Physical Examination General: Alert. HEENT: Pupils are equal, round, reactive to light and accommodation. Neck: Supple with no masses of lymphadenopathy. Breast: Deferred due to recent examination and responsibility of primary care physician. Chest: Clear to auscultation Heart: Normal rhythm with no murmur. Abdomen: Obese and mildly tender, no ascites nor organomeglay. Pelvic exam: large central mass no cul-de-sac nodularity noted Rectal: confirmatory with pelvic exam. Neurological: Grossly intact Assessment: Pelvic-abdominal mass Plan: Medical clearance and lLaparoscopic BSO, possible hysterectomy, possibly staging.. All risks and benefits of this procedure have been discussed in detail with the patient, as well as alternative treatment strategies and their implications. The patient is aware that there is some possibility of a blood transfusion and its associated risks and benefits. She wishes to proceed and gives her informed consent. Koki Reagan M.D. Eyes: no complaints ENT: no complaints Respiratory: No cough, No shortness of breath, No sputum Cardiovascular: no complaints, No chest pain, No lightheadedness, No palpitations Gastrointestinal: pain (suprapubic), No constipation, No diarrhea, No nausea Genitourinary: dysuria, other (urinary retention), No discharge, No flank pain, No hematuria Musculoskeletal: no complaints Skin: no complaints Neurologic: no complaints Lymphatic: no complaints Psychological: nl mood/affect Immunologic: no complaints Past Medical History Medical History: coronary artery disease, diabetes, high cholesterol, hypertension, hypothyroid, other (arthritis) Past Surgical History Past Surgical Hx: other (stent placement 4 years ago) Social History Alcohol Use: none Smoking Status: Never smoker Drug Use: none Exam/Review of Systems Vital Signs Vitals Vital Signs Date Time Temp Pulse Resp B/P Pulse Ox O2 Delivery O2 Flow Rate FiO2 03/29/17 20:36 97.6 70 16 112/51 95 03/29/17 19:51 Room Air Results Result Diagram: 03/29/17 0955 03/29/17 0955 Results 24 hrs Laboratory Tests Test 03/29/17 09:44 03/29/17 09:55 03/29/17 15:16 03/29/17 17:58 Urine Color YELLOW Urine Clarity CLEAR Urine pH 7.0 Urine Specific [place] 1.006 Urine Ketones NEGATIVE Urine Nitrite NEGATIVE Urine Bilirubin NEGATIVE Urine Urobilinogen NEGATIVE Urine Leukocyte Esterase NEGATIVE Urine Hemoglobin NEGATIVE Urine Glucose NEGATIVE Urine Total Protein NEGATIVE White Blood Count 8.4 Red Blood Count 4.03 L Hemoglobin 11.5 L Hematocrit 34.3 L Mean Corpuscular Volume 85.1 Mean Corpuscular Hemoglobin 28.5 L Mean Corpuscular Hemoglobin Concent 33.5 Red Cell Distribution Width 13.5 Platelet Count 233 Mean Platelet Volume 9.3 Neutrophils % 60.1 Lymphocytes % 27.4 Monocytes % 6.9 Eosinophils % 4.4 Basophils % 0.7 Nucleated Red Blood Cells % 0.0 Neutrophils # 5.1 Lymphocytes # 2.3 Monocytes # 0.6 Eosinophils # 0.4 Basophils # 0.1 Nucleated Red Blood Cells # 0.0 Sodium Level 132 L Potassium Level 4.7 Chloride Level 94 L Carbon Dioxide Level 28 Anion Gap 15 Blood Urea Nitrogen 16 Creatinine 0.86 Glucose Level 128 Calcium Level 9.5 Total Bilirubin 1.2 Direct Bilirubin 0.10 Indirect Bilirubin 1.1 Aspartate Amino Transf (AST/SGOT) 25 Alanine Aminotransferase (ALT/SGPT) 34 Alkaline Phosphatase 93 Total Protein 8.0 Albumin 4.4 Globulin 3.60 H Albumin/Globulin Ratio 1.22 Lipase 126 Bedside Glucose 108 115 Test 03/29/17 21:24 Bedside Glucose 139 Medications Medications Current Medications Atorvastatin Calcium (Lipitor) 20 mg HS PO Last administered on 03/29/17t 21:27 ; Admin Dose 20 MG; Start 03/29/17 at 21:00 Bethanechol Chloride (Urecholine) 25 mg TID PO Last administered on 03/29/17 21:27; Admin Dose 25 MG; Start 03/29/17 at 15:00 Carvedilol (Coreg) 12.5 mg BID PO Last administered on 03/29/17 21:27; Admin Dose 12.5 MG; Start 03/29/17 at 14:00 Chlorthalidone (Hygroton) 25 mg DAILY PO ; Start 03/30/17 at 09:00 Cholecalciferol (Vitamin D) 5,000 unit DAILY PO ; Start 03/30/17 at 09:00 Clopidogrel Bisulfate (plaVIX) 75 mg DAILY PO ; Start 03/30/17 at 09:00 Levothyroxine Sodium (Synthroid) 50 mcg DAILY@06 PO ; Start 03/30/17 at 06:00 Tamsulosin HCl (Flomax) 0.4 mg HS PO Last administered on 03/29/17 21:27; Admin Dose 0.4 MG; Start 03/29/17 at 21:00 Pantoprazole 40 mg 40 mg DAILY@06 PO ; Start 03/30/17 at 06:00 Sodium Chloride (NS) 1,000 ml @ 75 mls/hr [id number] IV Last administered on 03/29 15:00; Admin Dose 75 MLS/HR; Start 03/29/17 at 13:21 Ondansetron HCl (Zofran Inj) 4 mg Q6H PRN IV NAUSEA AND/OR VOMITING; Start at 13:30 Acetaminophen (Tylenol Tab) 650 mg Q6H PRN PO PAIN LEVEL 1-3 OR FEVER; Start at 13:30 Docusate Sodium (Colace) 100 mg Q12H PRN PO CONSTIPATION; Start 03/29/17 at 14: 00 Heparin Sodium (Porcine) (Heparin (5000 Units/0.5 ml)) 5,000 unit Q8 SC Last administered on 03/29/17 21:28; Admin Dose 5,000 UNIT; Start 03/29/17 at 14:00 Diagnostic Test (Pha) (Accu-Chek) 1 ea 02 XX ; Start 03/30/17 at 02:00 Miscellaneous Information 1 ea NOTE XX ; Start 03/29/17 at 14:00 Glucose (Glutose) 15 gm Q15M PRN PO DECREASED GLUCOSE; Start 03/29/17 at 14:00 Glucose (Glutose) 22.5 gm Q15M PRN PO DECREASED GLUCOSE; Start 03/29/17 at 14: 00 Dextrose (D50w Syringe) 25 ml Q15M PRN IV DECREASED GLUCOSE; Start 03/29/17 at 14:00 Dextrose (D50w Syringe) 50 ml Q15M PRN IV DECREASED GLUCOSE; Start 03/29/17 at 14:00 Glucagon (Glucagen) 1 mg Q15M PRN IM DECREASED GLUCOSE; Start 03/29/17 at 14:00 Glucose (Glutose) 15 gm Q15M PRN BUCCAL DECREASED GLUCOSE; Start 03/29/17 at 14 :00 Hydralazine HCl (Apresoline) 10 mg Q4H PRN IV ELEVATED BLOOD PRESSURE Last administered on 03/29/17t 15:34; Admin Dose 10 MG; Start 03/29/17 at 15:00 Labetalol HCl (Labetalol) 10 mg Q4 PRN IV ELEVATED BLOOD PRESSURE; Start at 15:00 KOKI REAGAN MD Mar 29, 2017 22:27
[2017-03-30] MEDS: ACCU-CHEK XX SCH ×2 (02:00→21:24)
[2017-03-30 02:55] VITALS: BP 98/44; RESP 18
[2017-03-30] MEDS: PANTOPRAZOLE (EC) 40 MG TAB PO SCH (05:22)
[2017-03-30] MEDS: LEVOTHYROXINE 50 MCG TAB PO SCH (05:22)
[2017-03-30] MEDS: HEPARIN 5,000 UNIT/0.5 ML VIAL SC SCH ×3 (05:23→21:22)
[2017-03-30] MEDS: SOD CHLORIDE 0.9% 1,000 ML IV SCH ×2 (05:24→16:01)
[2017-03-30 07:14] LABS: BASOPHILS % 0.6 % (0.0-2.0); EOSINOPHILS # 0.3 10^3/ul (0.0-0.5); EOSINOPHILS % 4.3 % (0.0-7.0); HEMATOCRIT 30.9 % (37.0-47.0); HEMOGLOBIN 10.6 g/dl (12.0-16.0); LYMPHOCYTES # 1.9 10^3/ul (0.8-2.9); LYMPHOCYTES % 27.4 % (15.0-51.0); MEAN CORPUSCULAR HEMOGLOBIN 28.9 pg (29.0-33.0); MEAN CORPUSCULAR HGB CONC 34.3 g/dl (32.0-37.0); MEAN CORPUSCULAR VOLUME 84.2 fl (82.0-101.0); MEAN PLATELET VOLUME 10.1 fl (7.4-10.4); MONOCYTE # 0.6 10^3/ul (0.3-0.9); MONOCYTES % 8.1 % (0.0-11.0); NEUTROPHIL # 4.1 10^3/ul (1.6-7.5); NEUTROPHILS % 59.3 % (39.0-77.0); PLATELET COUNT 236 10^3/UL (140-415); RED BLOOD COUNT 3.67 10^6/ul (4.20-5.40); RED CELL DISTRIBUTION WIDTH 13.7 % (11.5-14.5); WHITE BLOOD COUNT 6.9 10^3/ul (4.8-10.8)
[2017-03-30 07:32] LABS: IRON 57 ug/dl (35-150)
[2017-03-30 07:34] LABS: ALBUMIN 3.3 g/dl (3.3-4.9); ALBUMIN/GLOBULIN RATIO 1.17; BILIRUBIN,INDIRECT 0.5 mg/dl (0-1.1); BILIRUBIN,TOTAL 0.5 mg/dl (0.2-1.3); CALCIUM 9.1 mg/dl (8.4-10.2); CREATININE 0.85 mg/dl (0.44-1.00); MAGNESIUM 1.5 mg/dl (1.7-2.5); TOTAL PROTEIN 6.1 g/dl (6.1-8.1)
[2017-03-30 07:41] LABS: TOTAL IRON BINDING CAPACITY 322 ug/dl (241-421)
[2017-03-30 07:49] LABS: T3 UPTAKE 42.4 % (23.5-40.5)
[2017-03-30] MEDS: INSULIN ASPART [NOVOLOG] 3 ML PEN SC SCH ×4 (08:00→21:00)
[2017-03-30] MEDS: BETHANECHOL 25 MG TAB PO SCH ×3 (08:19→21:20)
[2017-03-30] MEDS: CHLORTHALIDONE 25 MG TAB PO SCH (08:20)
[2017-03-30] MEDS: CHOLECALCIFEROL 1,000 UNIT TAB PO SCH (08:21)
[2017-03-30 08:25] VITALS: BP 128/61; RESP 16
[2017-03-30] MEDS ORDERED: CLOPIDOGREL 75 MG TAB PO SCH (09:00)
--- NOTE | 2017-03-30 11:08 | PN ---
Date/Time of Note Date/Time of Note DATE: 03/30/17 TIME: 11:08 Assessment/Plan VTE Prophylaxis VTE Prophylaxis Intervention: contraindicated Lines/Catheters [facility] Peripheral IV Urinary Cath still in place: Yes Reason Cath still needed: urinary retention Assessment/Plan Assessment/Plan 1. Urinary retention secondary to pelvic mass - Dr. Tena consulted and appreciate recommendations. Plans for Laparoscopic BSO, possible hysterectomy, possibly staging - patient has known about cyst in ovary since 12/2016 but questionable whether may be a tumor since causing obstruction - CT abd/pelvis showed 12 cm L adnexal cystic mass that displaces adjacent colon as well as displaces the uterus to the right of midline 2. Anemia of chronic disease - FOBT ordered - no acute bleeding appreciated - will continue monitoring 3. Hyponatremia - will continue monitoring 4. DM - Was on Metformin at home and will hold - ISS and accuchecks - A1c 6.8 5. HTN - stable - PRN Labetalol and Hydralazine to keep SBP <160 6. CAD s/p stent 4 years ago - Continue on Plavix 7. HLP - statin 8. Patient has remained stable over the past 24 hours since admission and is medically cleared for moderate risk surgery. Patient was advised of risks and agrees to continue with plans to have surgery. Will hold Plavix now and plan to hold heparin 12 hours prior to surgery. Subjective 24 Hr Interval Summary Free Text/Dictation Patient doing well and states bladder pressure has improved with hui in place. Tolerating diet and denies any new complaints. No acute overnight events. She is still agreeing to surgery. Exam/Review of Systems Vital Signs Vitals Vital Signs Date Time Temp Pulse Resp B/P Pulse Ox O2 Delivery O2 Flow Rate FiO2 03/30/17 08:25 98.0 63 16 128/61 94 03/29/17 19:51 Room Air Intake and Output 03/29/17 03/29/17 03/30/17 15:00 23:00 07:00 Intake Total 510 ml 1170 ml Output Total 750 ml 600 ml Balance -240 ml 570 ml Exam Constitutional: alert, oriented, well developed Neck: supple Respiratory: clear to auscultation, normal air movement, No crackles/rales, No diminished breath sounds, No wheezing Cardiovascular: edema, regular rate and rhythm, systolic murmur Gastrointestinal: distended, mass, soft, non tender, No rebound or guarding Extremities: normal pulses Skin: nl turgor Lymph: nl lymph nodes Results Result Diagram: 03/30/17 0551 03/30/17 0551 Results 24 hrs Laboratory Tests Test 03/29/17 15:16 03/29/17 17:58 03/29/17 21:24 03/30/17 05:51 Bedside Glucose 108 115 139 White Blood Count 6.9 Red Blood Count 3.67 L Hemoglobin 10.6 L Hematocrit 30.9 L Mean Corpuscular Volume 84.2 Mean Corpuscular Hemoglobin 28.9 L Mean Corpuscular Hemoglobin Concent 34.3 Red Cell Distribution Width 13.7 Platelet Count 236 Mean Platelet Volume 10.1 Neutrophils % 59.3 Lymphocytes % 27.4 Monocytes % 8.1 Eosinophils % 4.3 Basophils % 0.6 Nucleated Red Blood Cells % 0.0 Neutrophils # 4.1 Lymphocytes # 1.9 Monocytes # 0.6 Eosinophils # 0.3 Basophils # 0.0 Nucleated Red Blood Cells # 0.0 Sodium Level 129 L Potassium Level 4.0 Chloride Level 97 Carbon Dioxide Level 26 Anion Gap 10 # Blood Urea Nitrogen 17 Creatinine 0.85 Glucose Level 121 Hemoglobin A1c 6.8 H Calcium Level 9.1 Magnesium Level 1.5 L Iron Level 57 Total Iron Binding Capacity 322 Percent Iron Saturation 18 L Total Bilirubin 0.5 Direct Bilirubin 0.00 Indirect Bilirubin 0.5 Aspartate Amino Transf (AST/SGOT) 21 Alanine Aminotransferase (ALT/SGPT) 34 Alkaline Phosphatase 78 Total Protein 6.1 # Albumin 3.3 # Globulin 2.80 Albumin/Globulin Ratio 1.17 CA 125 Antigen 31.9 Free Thyroxine Index 3.90 H Thyroxine (T4) 9.2 Triiodothyronine (T3) Uptake 42.4 H Test 03/30/17 08:15 Bedside Glucose 123 Medications Medications Current Medications Atorvastatin Calcium (Lipitor) 20 mg HS PO Last administered on 03/29/17 21:27 ; Admin Dose 20 MG; Start 03/29/17 at 21:00 Bethanechol Chloride (Urecholine) 25 mg TID PO Last administered on 03/30/17 08:19; Admin Dose 25 MG; Start 03/29/17 at 15:00 Carvedilol (Coreg) 12.5 mg BID PO Last administered on 03/30/17 08:19; Admin Dose 12.5 MG; Start 03/29/17 at 14:00 Chlorthalidone (Hygroton) 25 mg DAILY PO Last administered on 03/30/17 08:20; Admin Dose 25 MG; Start 03/30/17 at 09:00 Cholecalciferol (Vitamin D) 5,000 unit DAILY PO Last administered on 03/30/17 08:21; Admin Dose 5,000 UNIT; Start 03/30/17 at 09:00 Clopidogrel Bisulfate (plaVIX) 75 mg DAILY PO Last administered on 03/30/17 08 :20; Admin Dose 75 MG; Start 03/30/17 at 09:00 Levothyroxine Sodium (Synthroid) 50 mcg DAILY@06 PO Last administered on 05:22; Admin Dose 50 MCG; Start 03/30/17 at 06:00 Tamsulosin HCl (Flomax) 0.4 mg HS PO Last administered on 03/29/17 21:27; Admin Dose 0.4 MG; Start 03/29/17 at 21:00 Pantoprazole 40 mg 40 mg DAILY@06 PO Last administered on 03/30/17 05:22; Admin Dose 40 MG; Start 03/30/17 at 06:00 Sodium Chloride (NS) 1,000 ml @ 75 mls/hr [id number] IV Last administered on 03/30 05:24; Admin Dose 75 MLS/HR; Start 03/29/17 at 13:21 Ondansetron HCl (Zofran Inj) 4 mg Q6H PRN IV NAUSEA AND/OR VOMITING; Start at 13:30 Acetaminophen (Tylenol Tab) 650 mg Q6H PRN PO PAIN LEVEL 1-3 OR FEVER; Start at 13:30 Docusate Sodium (Colace) 100 mg Q12H PRN PO CONSTIPATION; Start 03/29/17 at 14: 00 Heparin Sodium (Porcine) (Heparin (5000 Units/0.5 ml)) 5,000 unit Q8 SC Last administered on 03/30/17 05:23; Admin Dose 5,000 UNIT; Start 03/29/17 at 14:00 Diagnostic Test (Pha) (Accu-Chek) 1 ea 02 XX ; Start 03/30/17 at 02:00 Miscellaneous Information 1 ea NOTE XX ; Start 03/29/17 at 14:00 Glucose (Glutose) 15 gm Q15M PRN PO DECREASED GLUCOSE; Start 03/29/17 at 14:00 Glucose (Glutose) 22.5 gm Q15M PRN PO DECREASED GLUCOSE; Start 03/29/17 at 14: 00 Dextrose (D50w Syringe) 25 ml Q15M PRN IV DECREASED GLUCOSE; Start 03/29/17 at 14:00 Dextrose (D50w Syringe) 50 ml Q15M PRN IV DECREASED GLUCOSE; Start 03/29/17 at 14:00 Glucagon (Glucagen) 1 mg Q15M PRN IM DECREASED GLUCOSE; Start 03/29/17 at 14:00 Glucose (Glutose) 15 gm Q15M PRN BUCCAL DECREASED GLUCOSE; Start 03/29/17 at 14 :00 Hydralazine HCl (Apresoline) 10 mg Q4H PRN IV ELEVATED BLOOD PRESSURE Last administered on 03/29/17t 15:34; Admin Dose 10 MG; Start 03/29/17 at 15:00 SUSAN GUEVARA MD Mar 30, 2017 11:08
[2017-03-30] MEDS ORDERED: MAGNESIUM SULFATE 4 GM/100 ML 100 ML IVPB SCH (12:30)
[2017-03-30 14:59] VITALS: BP 135/61; RESP 16
[2017-03-30 20:15] VITALS: BP 120/57; RESP 18
[2017-03-30] MEDS: ATORVASTATIN 20 MG TAB PO SCH (21:20)
[2017-03-30] MEDS: TAMSULOSIN (SR) 0.4 MG CAP PO SCH (21:20)
[2017-03-31 03:22] VITALS: BP 108/43; RESP 18
[2017-03-31] MEDS: LEVOTHYROXINE 50 MCG TAB PO SCH (05:10)
[2017-03-31] MEDS: SOD CHLORIDE 0.9% 1,000 ML IV SCH ×2 (05:10→16:59)
[2017-03-31] MEDS: PANTOPRAZOLE (EC) 40 MG TAB PO SCH (05:10)
[2017-03-31] MEDS: HEPARIN 5,000 UNIT/0.5 ML VIAL SC SCH ×3 (05:12→21:55)
[2017-03-31 08:00] VITALS: BP 127/68; RESP 20
[2017-03-31] MEDS: INSULIN ASPART [NOVOLOG] 3 ML PEN SC SCH ×4 (08:00→20:37)
[2017-03-31] MEDS: CHLORTHALIDONE 25 MG TAB PO SCH (09:03)
[2017-03-31] MEDS: CHOLECALCIFEROL 1,000 UNIT TAB PO SCH (09:03)
[2017-03-31] MEDS: BETHANECHOL 25 MG TAB PO SCH ×3 (09:03→21:50)
[2017-03-31 11:26] LABS: BASOPHILS % 0.4 % (0.0-2.0); EOSINOPHILS # 0.2 10^3/ul (0.0-0.5); EOSINOPHILS % 3.1 % (0.0-7.0); HEMATOCRIT 32.7 % (37.0-47.0); HEMOGLOBIN 10.7 g/dl (12.0-16.0); LYMPHOCYTES # 1.7 10^3/ul (0.8-2.9); LYMPHOCYTES % 24.7 % (15.0-51.0); MEAN CORPUSCULAR HGB CONC 32.7 g/dl (32.0-37.0); MEAN CORPUSCULAR VOLUME 85.6 fl (82.0-101.0); MEAN PLATELET VOLUME 9.6 fl (7.4-10.4); MONOCYTE # 0.5 10^3/ul (0.3-0.9); MONOCYTES % 7.5 % (0.0-11.0); NEUTROPHIL # 4.3 10^3/ul (1.6-7.5); PLATELET COUNT 241 10^3/UL (140-415); RED BLOOD COUNT 3.82 10^6/ul (4.20-5.40); RED CELL DISTRIBUTION WIDTH 13.9 % (11.5-14.5); WHITE BLOOD COUNT 6.7 10^3/ul (4.8-10.8)
[2017-03-31 11:55] LABS: ALBUMIN 3.8 g/dl (3.3-4.9); CALCIUM 9.2 mg/dl (8.4-10.2); CREATININE 0.88 mg/dl (0.44-1.00); MAGNESIUM 1.8 mg/dl (1.7-2.5); PHOSPHORUS 3.4 mg/dl (2.5-4.9)
[2017-03-31 14:00] VITALS: BP 150/64; RESP 18
--- NOTE | 2017-03-31 16:28 | PN ---
Date/Time of Note Date/Time of Note DATE: 03/31/17 TIME: 16:19 Assessment/Plan VTE Prophylaxis VTE Prophylaxis Intervention: anti-embolic stocking, heparin Lines/Catheters IV Catheter Type (from Nrsg): Peripheral IV Urinary Cath still in place: Yes Reason Cath still needed: urinary retention Assessment/Plan Assessment/Plan 1. Urinary retention secondary to pelvic mass - Dr. Tena consulted and appreciate recommendations. Plans for Laparoscopic BSO, possible hysterectomy, possibly staging - Plavix on hold since 03/30 and will be okay for surgery either Monday or Monday based on OR availability. Will hold Heparin at least 12 hours prior to surgery and NPO after midnight prior to surgery - patient has known about cyst in ovary since 12/2016 but questionable whether may be a tumor since causing obstruction - CT abd/pelvis showed 12 cm L adnexal cystic mass that displaces adjacent colon as well as displaces the uterus to the right of midline 2. Anemia of chronic disease - FOBT negative - no acute bleeding appreciated - will continue monitoring 3. Hyponatremia - stable - will order urine studies 4. DM - Was on Metformin at home and will hold - ISS and accuchecks - A1c 6.8 5. HTN - stable - PRN Labetalol and Hydralazine to keep SBP <160 6. CAD s/p stent 4 years ago - Hold plavix with anticipation for surgery on Monday or Monday 7. HLP - statin Subjective 24 Hr Interval Summary Free Text/Dictation Patient doing well and anxious for surgery to be performed. Thigh high TEDs are causing discomfort and will order knee high. Denies any acute overnight events or new complaints. Exam/Review of Systems Vital Signs Vitals Vital Signs Date Time Temp Pulse Resp B/P Pulse Ox O2 Delivery O2 Flow Rate FiO2 03/31/17 08:00 98.8 68 20 127/68 96 03/29/17 19:51 Room Air Intake and Output 03/30/17 03/30/17 03/31/17 15:00 23:00 07:00 Intake Total 1580 ml 720 ml Output Total 1700 ml Balance 1580 ml -980 ml Exam Constitutional: alert, oriented, well developed Neck: supple Lungs: clear to auscultation, normal air movement, No crackles/rales, No diminished breath sounds, No wheezing CVS: edema, regular rate and rhythm, systolic murmur Abd: distended, mass, soft, non tender, No rebound or guarding Extremities: normal pulses Results Result Diagram: 03/31/17 1055 03/31/17 1055 Results 24 hrs Laboratory Tests Test 03/30/17 16:54 03/30/17 21:18 03/31/17 07:44 03/31/17 10:55 Bedside Glucose 111 121 119 White Blood Count 6.7 Red Blood Count 3.82 L Hemoglobin 10.7 L Hematocrit 32.7 L Mean Corpuscular Volume 85.6 Mean Corpuscular Hemoglobin 28.0 L Mean Corpuscular Hemoglobin Concent 32.7 Red Cell Distribution Width 13.9 Platelet Count 241 Mean Platelet Volume 9.6 Neutrophils % 64.0 Lymphocytes % 24.7 Monocytes % 7.5 Eosinophils % 3.1 Basophils % 0.4 Nucleated Red Blood Cells % 0.0 Neutrophils # 4.3 Lymphocytes # 1.7 Monocytes # 0.5 Eosinophils # 0.2 Basophils # 0.0 Nucleated Red Blood Cells # 0.0 Sodium Level 130 L Potassium Level 4.0 Chloride Level 96 L Carbon Dioxide Level 27 Anion Gap 11 Blood Urea Nitrogen 16 Creatinine 0.88 Glucose Level 166 Calcium Level 9.2 Phosphorus Level 3.4 Magnesium Level 1.8 Albumin 3.8 Test 03/31/17 12:20 Bedside Glucose 108 Medications Medications Current Medications Atorvastatin Calcium (Lipitor) 20 mg HS PO Last administered on 03/30/17 21:20 ; Admin Dose 20 MG; Start 03/29/17 at 21:00 Bethanechol Chloride (Urecholine) 25 mg TID PO Last administered on 03/31/17 13:08; Admin Dose 25 MG; Start 03/29/17 at 15:00 Carvedilol (Coreg) 12.5 mg BID PO Last administered on 03/31/17 09:04; Admin Dose 12.5 MG; Start 03/29/17 at 14:00 Chlorthalidone (Hygroton) 25 mg DAILY PO Last administered on 03/31/17 09:03; Admin Dose 25 MG; Start 03/30/17 at 09:00 Cholecalciferol (Vitamin D) 5,000 unit DAILY PO Last administered on 03/31/17 09:03; Admin Dose 5,000 UNIT; Start 03/30/17 at 09:00 Clopidogrel Bisulfate (plaVIX) 75 mg DAILY PO Last administered on 03/30/17 08 :20; Admin Dose 75 MG; Start 03/30/17 at 09:00; Status Future Hold Levothyroxine Sodium (Synthroid) 50 mcg DAILY@06 PO Last administered on 05:10; Admin Dose 50 MCG; Start 03/30/17 at 06:00 Tamsulosin HCl (Flomax) 0.4 mg HS PO Last administered on 03/30/17 21:20; Admin Dose 0.4 MG; Start 03/29/17 at 21:00 Pantoprazole 40 mg 40 mg DAILY@06 PO Last administered on 03/31/17 05:10; Admin Dose 40 MG; Start 03/30/17 at 06:00 Sodium Chloride (NS) 1,000 ml @ 75 mls/hr [id number] IV Last administered on 03/31 05:10; Admin Dose 75 MLS/HR; Start 03/29/17 at 13:21 Ondansetron HCl (Zofran Inj) 4 mg Q6H PRN IV NAUSEA AND/OR VOMITING; Start at 13:30 Acetaminophen (Tylenol Tab) 650 mg Q6H PRN PO PAIN LEVEL 1-3 OR FEVER; Start at 13:30 Docusate Sodium (Colace) 100 mg Q12H PRN PO CONSTIPATION; Start 03/29/17 at 14: 00 Heparin Sodium (Porcine) (Heparin (5000 Units/0.5 ml)) 5,000 unit Q8 SC Last administered on 03/31/17 13:11; Admin Dose 5,000 UNIT; Start 03/29/17 at 14:00 Diagnostic Test (Pha) (Accu-Chek) 1 ea 02 XX ; Start 03/30/17 at 02:00 Miscellaneous Information 1 ea NOTE XX ; Start 03/29/17 at 14:00 Glucose (Glutose) 15 gm Q15M PRN PO DECREASED GLUCOSE; Start 03/29/17 at 14:00 Glucose (Glutose) 22.5 gm Q15M PRN PO DECREASED GLUCOSE; Start 03/29/17 at 14: 00 Dextrose (D50w Syringe) 25 ml Q15M PRN IV DECREASED GLUCOSE; Start 03/29/17 at 14:00 Dextrose (D50w Syringe) 50 ml Q15M PRN IV DECREASED GLUCOSE; Start 03/29/17 at 14:00 Glucagon (Glucagen) 1 mg Q15M PRN IM DECREASED GLUCOSE; Start 03/29/17 at 14:00 Glucose (Glutose) 15 gm Q15M PRN BUCCAL DECREASED GLUCOSE; Start 03/29/17 at 14 :00 Hydralazine HCl (Apresoline) 10 mg Q4H PRN IV ELEVATED BLOOD PRESSURE Last administered on 03/29/17t 15:34; Admin Dose 10 MG; Start 03/29/17 at 15:00 SUSAN GUEVARA MD Mar 31, 2017 16:28
--- NOTE | 2017-03-31 16:34 | RADRPT ---
Vent Rate: 65 bpm RR Interval: 0 msec [place] Interval: 170 msec QRS Duration: 92 msec QT Interval: 432 msec QTC Interval: 449 msec P-R-T [place]: 63 - 65 - 84 degrees Normal sinus rhythm Normal ECG Electronically Signed By: Evelio Parikh [id number]
[2017-03-31 19:40] VITALS: BP 149/65; RESP 18
[2017-03-31] MEDS: TAMSULOSIN (SR) 0.4 MG CAP PO SCH (20:36)
[2017-03-31] MEDS: ATORVASTATIN 20 MG TAB PO SCH (20:36)
[2017-04-01] MEDS: ACCU-CHEK XX SCH (01:35)
[2017-04-01 01:40] VITALS: BP 101/49; RESP 18
[2017-04-01] MEDS: SOD CHLORIDE 0.9% 1,000 ML IV SCH ×3 (05:26→21:30)
[2017-04-01] MEDS: PANTOPRAZOLE (EC) 40 MG TAB PO SCH (05:56)
[2017-04-01] MEDS: LEVOTHYROXINE 50 MCG TAB PO SCH (05:56)
[2017-04-01] MEDS: HEPARIN 5,000 UNIT/0.5 ML VIAL SC SCH ×3 (06:02→21:40)
[2017-04-01 06:14] LABS: BASOPHILS % 0.5 % (0.0-2.0); EOSINOPHILS # 0.2 10^3/ul (0.0-0.5); EOSINOPHILS % 3.1 % (0.0-7.0); HEMOGLOBIN 9.9 g/dl (12.0-16.0); LYMPHOCYTES # 2.2 10^3/ul (0.8-2.9); LYMPHOCYTES % 28.9 % (15.0-51.0); MEAN CORPUSCULAR HEMOGLOBIN 28.2 pg (29.0-33.0); MEAN CORPUSCULAR VOLUME 85.5 fl (82.0-101.0); MEAN PLATELET VOLUME 10.1 fl (7.4-10.4); MONOCYTE # 0.6 10^3/ul (0.3-0.9); NEUTROPHIL # 4.5 10^3/ul (1.6-7.5); NEUTROPHILS % 59.2 % (39.0-77.0); PLATELET COUNT 213 10^3/UL (140-415); RED BLOOD COUNT 3.51 10^6/ul (4.20-5.40); RED CELL DISTRIBUTION WIDTH 14.1 % (11.5-14.5); WHITE BLOOD COUNT 7.5 10^3/ul (4.8-10.8)
[2017-04-01 07:28] LABS: CALCIUM 8.7 mg/dl (8.4-10.2); MAGNESIUM 1.6 mg/dl (1.7-2.5)
[2017-04-01 07:40] LABS: ALBUMIN 3.5 g/dl (3.3-4.9); CREATININE 0.86 mg/dl (0.44-1.00); PHOSPHORUS 3.8 mg/dl (2.5-4.9)
[2017-04-01 07:53] VITALS: BP 136/65; RESP 18
[2017-04-01] MEDS: INSULIN ASPART [NOVOLOG] 3 ML PEN SC SCH ×4 (08:02→21:00)
[2017-04-01] MEDS: CHLORTHALIDONE 25 MG TAB PO SCH (09:33)
[2017-04-01] MEDS: CHOLECALCIFEROL 1,000 UNIT TAB PO SCH (09:33)
[2017-04-01] MEDS: BETHANECHOL 25 MG TAB PO SCH ×3 (09:34→21:32)
[2017-04-01 09:38] VITALS: BP 140/60; PULSE 73
[2017-04-01] MEDS ORDERED: MAGNESIUM SULFATE 2 GM/50 ML 50 ML IVPB ONE (10:30)
--- NOTE | 2017-04-01 11:46 | PN ---
Date/Time of Note Date/Time of Note DATE: 04/01/17 TIME: 11:38 Assessment/Plan VTE Prophylaxis VTE Prophylaxis Intervention: heparin Lines/Catheters IV Catheter Type (from Nrs): Peripheral IV Urinary Cath still in place: Yes Reason Cath still needed: urinary retention Assessment/Plan Assessment/Plan 1. Urinary retention secondary to pelvic mass - Dr. Tena consulted and appreciate recommendations. Plans for Laparoscopic BSO, possible hysterectomy, possibly staging - Plavix has been on hold since 03/30 and should be held for 4-5 days prior to surgery. Will need to hold Heparin from night before surgery. Will be performed possibly on Monday or Monday based on OR schedule per Dr. Moreno. Will resume once okay with surgery. - Patient has known about cyst in ovary since 12/2016 - CT abd/pelvis showed 12 cm L adnexal cystic mass that displaces adjacent colon as well as displaces the uterus to the right of midline 2. Anemia of chronic disease - FOBT negative - no acute bleeding appreciated - will continue monitoring 3. Hyponatremia - will continue monitoring - urine studies ordered 4. DM - Was on Metformin at home and will hold - ISS and accuchecks - A1c 6.8 5. HTN - stable - PRN Labetalol and Hydralazine to keep SBP <160 6. CAD s/p stent 4 years ago - Plavix on hold since 03/30 7. HLP - statin 8. Disposition - Plans for surgery on Monday or Monday based on OR schedule. Plavix currently on hold - Will keep NPO after midnight and hold heparin doses prior to surgery Subjective 24 Hr Interval Summary Free Text/Dictation Patient doing well and states still feeling bloated but no new complaints. Happy to have had a shower this morning and feeling clean. No acute overnight events. Exam/Review of Systems Vital Signs Vitals Vital Signs Date Time Temp Pulse Resp B/P Pulse Ox O2 Delivery O2 Flow Rate FiO2 04/01/17 09:38 73 140/60 04/01/17 07:53 98.2 18 93 03/29/17 19:51 Room Air Intake and Output 03/31/17 03/31/17 04/01/17 15:00 23:00 07:00 Intake Total 1400 ml 1000 ml Output Total 750 ml 600 ml Balance 650 ml 400 ml Exam Constitutional: alert, oriented, well developed Respiratory: clear to auscultation, normal air movement, No crackles/rales, No diminished breath sounds, No wheezing Cardiovascular: edema, regular rate and rhythm, systolic murmur Gastrointestinal: distended, soft, non tender, No rebound or guarding Extremities: normal pulses Skin: nl turgor Lymph: nl lymph nodes Results Result Diagram: 04/01/17 0528 04/01/17 0528 Results 24 hrs Laboratory Tests Test 03/31/17 12:20 03/31/17 17:07 03/31/17 20:36 04/01/17 05:28 Bedside Glucose 108 120 115 White Blood Count 7.5 Red Blood Count 3.51 L Hemoglobin 9.9 L Hematocrit 30.0 L Mean Corpuscular Volume 85.5 Mean Corpuscular Hemoglobin 28.2 L Mean Corpuscular Hemoglobin Concent 33.0 Red Cell Distribution Width 14.1 Platelet Count 213 Mean Platelet Volume 10.1 Neutrophils % 59.2 Lymphocytes % 28.9 Monocytes % 8.0 Eosinophils % 3.1 Basophils % 0.5 Nucleated Red Blood Cells % 0.0 Neutrophils # 4.5 Lymphocytes # 2.2 Monocytes # 0.6 Eosinophils # 0.2 Basophils # 0.0 Nucleated Red Blood Cells # 0.0 Sodium Level 131 L Potassium Level 4.0 Chloride Level 97 Carbon Dioxide Level 26 Anion Gap 12 Blood Urea Nitrogen 22 H Creatinine 0.86 Glucose Level 123 # Calcium Level 8.7 Phosphorus Level 3.8 Magnesium Level 1.6 L Albumin 3.5 Test 04/01/17 07:58 04/01/17 08:30 Bedside Glucose 133 Urine Osmolality 621 Urine Random Sodium 137 H Urine Random Potassium 37.0 Medications Medications Current Medications Atorvastatin Calcium (Lipitor) 20 mg HS PO Last administered on 03/31/17 20:36 ; Admin Dose 20 MG; Start 03/29/17 at 21:00 Bethanechol Chloride (Urecholine) 25 mg TID PO Last administered on 04/01/17 09:34; Admin Dose 25 MG; Start 03/29/17 at 15:00 Carvedilol (Coreg) 12.5 mg BID PO Last administered on 04/01/17 09:34; Admin Dose 12.5 MG; Start 03/29/17 at 14:00 Chlorthalidone (Hygroton) 25 mg DAILY PO Last administered on 04/01/17 09:33; Admin Dose 25 MG; Start 03/30/17 at 09:00 Cholecalciferol (Vitamin D) 5,000 unit DAILY PO Last administered on 04/01/17 09:33; Admin Dose 5,000 UNIT; Start 03/30/17 at 09:00 Clopidogrel Bisulfate (plaVIX) 75 mg DAILY PO Last administered on 03/30/17 08 :20; Admin Dose 75 MG; Start 03/30/17 at 09:00; Status Future Hold Levothyroxine Sodium (Synthroid) 50 mcg DAILY@06 PO Last administered on 05:56; Admin Dose 50 MCG; Start 03/30/17 at 06:00 Tamsulosin HCl (Flomax) 0.4 mg HS PO Last administered on 03/31/17 20:36; Admin Dose 0.4 MG; Start 03/29/17 at 21:00 Pantoprazole 40 mg 40 mg DAILY@06 PO Last administered on 04/01/17 05:56; Admin Dose 40 MG; Start 03/30/17 at 06:00 Sodium Chloride (NS) 1,000 ml @ 75 mls/hr [id number] IV Last administered on 04/01 05:26; Admin Dose 75 MLS/HR; Start 03/29/17 at 13:21 Ondansetron HCl (Zofran Inj) 4 mg Q6H PRN IV NAUSEA AND/OR VOMITING; Start at 13:30 Acetaminophen (Tylenol Tab) 650 mg Q6H PRN PO PAIN LEVEL 1-3 OR FEVER; Start at 13:30 Docusate Sodium (Colace) 100 mg Q12H PRN PO CONSTIPATION; Start 03/29/17 at 14: 00 Heparin Sodium (Porcine) (Heparin (5000 Units/0.5 ml)) 5,000 unit Q8 SC Last administered on 04/01/17 06:02; Admin Dose 5,000 UNIT; Start 03/29/17 at 14:00 Diagnostic Test (Pha) (Accu-Chek) 1 ea 02 XX ; Start 03/30/17 at 02:00 Miscellaneous Information 1 ea NOTE XX ; Start 03/29/17 at 14:00 Glucose (Glutose) 15 gm Q15M PRN PO DECREASED GLUCOSE; Start 03/29/17 at 14:00 Glucose (Glutose) 22.5 gm Q15M PRN PO DECREASED GLUCOSE; Start 03/29/17 at 14: 00 Dextrose (D50w Syringe) 25 ml Q15M PRN IV DECREASED GLUCOSE; Start 03/29/17 at 14:00 Dextrose (D50w Syringe) 50 ml Q15M PRN IV DECREASED GLUCOSE; Start 03/29/17 at 14:00 Glucagon (Glucagen) 1 mg Q15M PRN IM DECREASED GLUCOSE; Start 03/29/17 at 14:00 Glucose (Glutose) 15 gm Q15M PRN BUCCAL DECREASED GLUCOSE; Start 03/29/17 at 14 :00 Hydralazine HCl 10 mg 10 mg Q4H PRN IV ELEVATED BLOOD PRESSURE Last administered on 03/29/17t 15:34; Admin Dose 10 MG; Start 03/29/17 at 15:00 Magnesium Sulfate (Magnesium Sulfate 2 Gm/50 ml) 50 ml @ 25 mls/hr ONCE ONCE IVPB ; Start 04/01/17 at 10:30; Stop 04/01/17 at 12:29 SUSAN GUEVARA MD Apr 01, 2017 11:46
[2017-04-01 14:00] VITALS: BP 160/69; RESP 18
[2017-04-01 15:51] VITALS: BP 157/68; PULSE 62
--- NOTE | 2017-04-01 19:05 | PN ---
Date/Time of Note Date/Time of Note DATE: 04/01/17 TIME: 18:57 Assessment/Plan VTE Prophylaxis VTE Prophylaxis Intervention: other Lines/Catheters [facility] Peripheral IV Urinary Cath still in place: Yes Reason Cath still needed: urinary retention Assessment/Plan Chief Complaint/Hosp Course Pelvic mass with urinary obstruction Problems: Assessment/Plan A/P- clearance appreciated . Given that Plavix stopped 03/30 and when OR time is available (and her age), will proced with Laparoscopic BSO and possible laparotomy Monday unless Monday time becomes available. Of note: she will require a bowel prep for exposure and if it were a cancer adherent to intestine ; to be lauren I will start it on Monday and complete Monday. Thanks Subjective 24 Hr Interval Summary Free Text/Dictation Feels about the same, minimally OOB. Exam/Review of Systems Vital Signs Vitals Vital Signs Date Time Temp Pulse Resp B/P Pulse Ox O2 Delivery O2 Flow Rate FiO2 04/01/17 15:51 62 157/68 04/01/17 14:00 97.9 18 97 03/29/17 19:51 Room Air Intake and Output 03/31/17 03/31/17 04/01/17 15:00 23:00 07:00 Intake Total 1400 ml 1000 ml Output Total 750 ml 600 ml Balance 650 ml 400 ml Results Result Diagram: 04/01/17 0528 04/01/17 0528 Results 24 hrs Laboratory Tests Test 03/31/17 20:36 04/01/17 05:28 04/01/17 07:58 04/01/17 08:30 Bedside Glucose 115 133 White Blood Count 7.5 Red Blood Count 3.51 L Hemoglobin 9.9 L Hematocrit 30.0 L Mean Corpuscular Volume 85.5 Mean Corpuscular Hemoglobin 28.2 L Mean Corpuscular Hemoglobin Concent 33.0 Red Cell Distribution Width 14.1 Platelet Count 213 Mean Platelet Volume 10.1 Neutrophils % 59.2 Lymphocytes % 28.9 Monocytes % 8.0 Eosinophils % 3.1 Basophils % 0.5 Nucleated Red Blood Cells % 0.0 Neutrophils # 4.5 Lymphocytes # 2.2 Monocytes # 0.6 Eosinophils # 0.2 Basophils # 0.0 Nucleated Red Blood Cells # 0.0 Sodium Level 131 L Potassium Level 4.0 Chloride Level 97 Carbon Dioxide Level 26 Anion Gap 12 Blood Urea Nitrogen 22 H Creatinine 0.86 Glucose Level 123 # Calcium Level 8.7 Phosphorus Level 3.8 Magnesium Level 1.6 L Albumin 3.5 Urine Osmolality 621 Urine Random Sodium 137 H Urine Random Potassium 37.0 Test 04/01/17 11:48 04/01/17 17:24 Bedside Glucose 136 123 Medications Medications Current Medications Atorvastatin Calcium (Lipitor) 20 mg HS PO Last administered on 03/31/17 20:36 ; Admin Dose 20 MG; Start 03/29/17 at 21:00 Bethanechol Chloride (Urecholine) 25 mg TID PO Last administered on 04/01/17 12:58; Admin Dose 25 MG; Start 03/29/17 at 15:00 Carvedilol (Coreg) 12.5 mg BID PO Last administered on 04/01/17 09:34; Admin Dose 12.5 MG; Start 03/29/17 at 14:00 Chlorthalidone (Hygroton) 25 mg DAILY PO Last administered on 04/01/17 09:33; Admin Dose 25 MG; Start 03/30/17 at 09:00 Cholecalciferol (Vitamin D) 5,000 unit DAILY PO Last administered on 04/01/17 09:33; Admin Dose 5,000 UNIT; Start 03/30/17 at 09:00 Clopidogrel Bisulfate (plaVIX) 75 mg DAILY PO Last administered on 03/30/17 08 :20; Admin Dose 75 MG; Start 03/30/17 at 09:00; Status Future Hold Levothyroxine Sodium (Synthroid) 50 mcg DAILY@06 PO Last administered on 05:56; Admin Dose 50 MCG; Start 03/30/17 at 06:00 Tamsulosin HCl (Flomax) 0.4 mg HS PO Last administered on 03/31/17 20:36; Admin Dose 0.4 MG; Start 03/29/17 at 21:00 Pantoprazole 40 mg 40 mg DAILY@06 PO Last administered on 04/01/17 05:56; Admin Dose 40 MG; Start 03/30/17 at 06:00 Sodium Chloride (NS) 1,000 ml @ 75 mls/hr [id number] IV Last administered on 04/01 05:26; Admin Dose 75 MLS/HR; Start 03/29/17 at 13:21 Ondansetron HCl (Zofran Inj) 4 mg Q6H PRN IV NAUSEA AND/OR VOMITING; Start at 13:30 Acetaminophen (Tylenol Tab) 650 mg Q6H PRN PO PAIN LEVEL 1-3 OR FEVER; Start at 13:30 Docusate Sodium (Colace) 100 mg Q12H PRN PO CONSTIPATION; Start 03/29/17 at 14: 00 Heparin Sodium (Porcine) (Heparin (5000 Units/0.5 ml)) 5,000 unit Q8 SC Last administered on 04/01/17 15:03; Admin Dose 5,000 UNIT; Start 03/29/17 at 14:00 Diagnostic Test (Pha) (Accu-Chek) 1 ea 02 XX ; Start 03/30/17 at 02:00 Miscellaneous Information 1 ea NOTE XX ; Start 03/29/17 at 14:00 Glucose (Glutose) 15 gm Q15M PRN PO DECREASED GLUCOSE; Start 03/29/17 at 14:00 Glucose (Glutose) 22.5 gm Q15M PRN PO DECREASED GLUCOSE; Start 03/29/17 at 14: 00 Dextrose (D50w Syringe) 25 ml Q15M PRN IV DECREASED GLUCOSE; Start 03/29/17 at 14:00 Dextrose (D50w Syringe) 50 ml Q15M PRN IV DECREASED GLUCOSE; Start 03/29/17 at 14:00 Glucagon (Glucagen) 1 mg Q15M PRN IM DECREASED GLUCOSE; Start 03/29/17 at 14:00 Glucose (Glutose) 15 gm Q15M PRN BUCCAL DECREASED GLUCOSE; Start 03/29/17 at 14 :00 Hydralazine HCl (Apresoline) 10 mg Q4H PRN IV ELEVATED BLOOD PRESSURE Last administered on 03/29/17 15:34; Admin Dose 10 MG; Start 03/29/17 at 15:00 KOKI REAGAN MD Apr 01, 2017 19:05
[2017-04-01 19:39] VITALS: BP 141/64; RESP 20
[2017-04-01] MEDS: ATORVASTATIN 20 MG TAB PO SCH (21:31)
[2017-04-01] MEDS: TAMSULOSIN (SR) 0.4 MG CAP PO SCH (21:32)
[2017-04-02 02:00] VITALS: BP_SYST 109; BP_SYST 117; BP_DIAS 58; BP_DIAS 69; RESP 20
[2017-04-02] MEDS: ACCU-CHEK XX SCH (02:00)
[2017-04-02] MEDS: PANTOPRAZOLE (EC) 40 MG TAB PO SCH (05:47)
[2017-04-02] MEDS: LEVOTHYROXINE 50 MCG TAB PO SCH (05:47)
[2017-04-02] MEDS: HEPARIN 5,000 UNIT/0.5 ML VIAL SC SCH ×3 (05:51→21:19)
[2017-04-02 06:22] LABS: BASOPHIL # 0.1 10^3/ul (0.0-0.1); BASOPHILS % 0.6 % (0.0-2.0); EOSINOPHILS # 0.2 10^3/ul (0.0-0.5); EOSINOPHILS % 2.6 % (0.0-7.0); HEMATOCRIT 30.1 % (37.0-47.0); HEMOGLOBIN 10.2 g/dl (12.0-16.0); LYMPHOCYTES # 2.1 10^3/ul (0.8-2.9); LYMPHOCYTES % 26.7 % (15.0-51.0); MEAN CORPUSCULAR HEMOGLOBIN 28.7 pg (29.0-33.0); MEAN CORPUSCULAR HGB CONC 33.9 g/dl (32.0-37.0); MEAN CORPUSCULAR VOLUME 84.8 fl (82.0-101.0); MEAN PLATELET VOLUME 10.2 fl (7.4-10.4); MONOCYTE # 0.7 10^3/ul (0.3-0.9); MONOCYTES % 8.9 % (0.0-11.0); NEUTROPHIL # 4.7 10^3/ul (1.6-7.5); NEUTROPHILS % 60.8 % (39.0-77.0); PLATELET COUNT 230 10^3/UL (140-415); RED BLOOD COUNT 3.55 10^6/ul (4.20-5.40); RED CELL DISTRIBUTION WIDTH 13.9 % (11.5-14.5); WHITE BLOOD COUNT 7.8 10^3/ul (4.8-10.8)
[2017-04-02 06:55] LABS: ALBUMIN 3.5 g/dl (3.3-4.9); CREATININE 0.84 mg/dl (0.44-1.00); MAGNESIUM 1.8 mg/dl (1.7-2.5); PHOSPHORUS 3.8 mg/dl (2.5-4.9); POTASSIUM 3.7 mmol/L (3.5-5.1)
[2017-04-02 07:36] VITALS: BP 172/70; RESP 18
[2017-04-02] MEDS: INSULIN ASPART [NOVOLOG] 3 ML PEN SC SCH ×4 (07:56→21:00)
[2017-04-02] MEDS: CHOLECALCIFEROL 1,000 UNIT TAB PO SCH (08:27)
[2017-04-02] MEDS: BETHANECHOL 25 MG TAB PO SCH ×3 (08:27→21:11)
[2017-04-02] MEDS: CHLORTHALIDONE 25 MG TAB PO SCH (08:27)
[2017-04-02 08:32] VITALS: BP 188/80; PULSE 65
[2017-04-02] MEDS ORDERED: MAGNESIUM SULFATE 2 GM/50 ML 50 ML IVPB ONE (10:00)
[2017-04-02 10:20] VITALS: BP 138/61; PULSE 66
[2017-04-02] MEDS: ACETAMINOPHEN 325 MG TAB PO PRN (10:20)
[2017-04-02] MEDS: SOD CHLORIDE 0.9% 1,000 ML IV SCH ×2 (10:41→23:48)
[2017-04-02 14:37] VITALS: BP 135/63; RESP 18
--- NOTE | 2017-04-02 15:59 | PN ---
Date/Time of Note Date/Time of Note DATE: 04/02/17 TIME: 15:55 Assessment/Plan VTE Prophylaxis VTE Prophylaxis Intervention: heparin Lines/Catheters IV Catheter Type (from Nrsg): Peripheral IV Urinary Cath still in place: Yes Reason Cath still needed: urinary retention Assessment/Plan Assessment/Plan 1. Urinary retention secondary to pelvic mass - Dr. Tena consulted and appreciate recommendations. Plans for Laparoscopic BSO, possible hysterectomy, possibly staging - Plavix has been on hold since 03/30 and should be held until surgery. Will need to hold Heparin from night before surgery. Per Dr. Moreno, patient is on the schedule for Monday in the OR but will try for Monday if availability opens up. - Will start bowel prep on Monday in anticipation for surgery on or Monday - Patient has known about cyst in ovary since 12/2016 - CT abd/pelvis showed 12 cm L adnexal cystic mass that displaces adjacent colon as well as displaces the uterus to the right of midline 2. Anemia of chronic disease - FOBT negative - no acute bleeding appreciated - will continue monitoring 3. Hyponatremia - will continue monitoring - urine studies ordered - asymptomatic at this time 4. DM - Was on Metformin at home and will hold - ISS and accuchecks - A1c 6.8 5. HTN - stable - PRN Labetalol and Hydralazine to keep SBP <160 6. CAD s/p stent 4 years ago - Plavix on hold since 03/30 7. HLP - statin 8. Disposition - Plans for surgery on Monday, possibly Monday. Plavix currently on hold - Will keep NPO after midnight and hold heparin doses prior to surgery Subjective 24 Hr Interval Summary Free Text/Dictation Patient c/o pain in her right ankle that she associates with arthritis. Offered Tylenol for pain relief. Also c/o of feeling as if left eye is more closed than right eye but no acute issues appreciated. Exam/Review of Systems Vital Signs Vitals Vital Signs Date Time Temp Pulse Resp B/P Pulse Ox O2 Delivery O2 Flow Rate FiO2 04/02/17 14:37 98.3 63 18 135/63 95 03/29/17 19:51 Room Air Intake and Output 04/01/17 04/01/17 04/02/17 15:00 23:00 07:00 Intake Total 2930 ml 370 ml Output Total 2300 ml Balance 630 ml 370 ml Exam Constitutional: alert, oriented, well developed Respiratory: clear to auscultation, normal air movement, No crackles/rales, No diminished breath sounds, No wheezing Cardiovascular: edema, regular rate and rhythm, systolic murmur Gastrointestinal: distended, soft, non tender, No rebound or guarding Extremities: normal pulses, mild swelling of right ankle but no ecchymosis, erythema, or disfigurement appreciated Skin: nl turgor Lymph: nl lymph nodes Results Result Diagram: 04/02/1752504/02/17525 Results 24 hrs Laboratory Tests Test 04/01/17 17:24 04/01/17 21:35 04/02/17 05:26 04/02/17 07:54 Bedside Glucose 123 121 123 White Blood Count 7.8 Red Blood Count 3.55 L Hemoglobin 10.2 L Hematocrit 30.1 L Mean Corpuscular Volume 84.8 Mean Corpuscular Hemoglobin 28.7 L Mean Corpuscular Hemoglobin Concent 33.9 Red Cell Distribution Width 13.9 Platelet Count 230 Mean Platelet Volume 10.2 Neutrophils % 60.8 Lymphocytes % 26.7 Monocytes % 8.9 Eosinophils % 2.6 Basophils % 0.6 Nucleated Red Blood Cells % 0.0 Neutrophils # 4.7 Lymphocytes # 2.1 Monocytes # 0.7 Eosinophils # 0.2 Basophils # 0.1 Nucleated Red Blood Cells # 0.0 Sodium Level 130 L Potassium Level 3.7 Chloride Level 96 L Carbon Dioxide Level 29 Anion Gap 9 Blood Urea Nitrogen 19 Creatinine 0.84 Glucose Level 122 Calcium Level 9.0 Phosphorus Level 3.8 Magnesium Level 1.8 Albumin 3.5 Test 04/02/17 12:13 Bedside Glucose 167 Medications Medications Current Medications Atorvastatin Calcium (Lipitor) 20 mg HS PO Last administered on 04/01/17 21:31 ; Admin Dose 20 MG; Start 03/29/17 at 21:00 Bethanechol Chloride (Urecholine) 25 mg TID PO Last administered on 04/02/17 12:43; Admin Dose 25 MG; Start 03/29/17 at 15:00 Carvedilol (Coreg) 12.5 mg BID PO Last administered on 04/02/17 08:27; Admin Dose 12.5 MG; Start 03/29/17 at 14:00 Chlorthalidone (Hygroton) 25 mg DAILY PO Last administered on 04/02/17 08:27; Admin Dose 25 MG; Start 03/30/17 at 09:00 Cholecalciferol (Vitamin D) 5,000 unit DAILY PO Last administered on 04/02/17 08:27; Admin Dose 5,000 UNIT; Start 03/30/17 at 09:00 Clopidogrel Bisulfate (plaVIX) 75 mg DAILY PO Last administered on 03/30/17 08 :20; Admin Dose 75 MG; Start 03/30/17 at 09:00; Status Future Hold Levothyroxine Sodium (Synthroid) 50 mcg DAILY@06 PO Last administered on 05:47; Admin Dose 50 MCG; Start 03/30/17 at 06:00 Tamsulosin HCl (Flomax) 0.4 mg HS PO Last administered on 04/01/17 21:32; Admin Dose 0.4 MG; Start 03/29/17 at 21:00 Pantoprazole 40 mg 40 mg DAILY@06 PO Last administered on 04/02/17 05:47; Admin Dose 40 MG; Start 03/30/17 at 06:00 Sodium Chloride (NS) 1,000 ml @ 75 mls/hr [id number] IV Last administered on 04/01 21:30; Admin Dose 75 MLS/HR; Start 03/29/17 at 13:21 Ondansetron HCl (Zofran Inj) 4 mg Q6H PRN IV NAUSEA AND/OR VOMITING; Start at 13:30 Acetaminophen (Tylenol Tab) 650 mg Q6H PRN PO PAIN LEVEL 1-3 OR FEVER Last administered on 04/02/17 10:20; Admin Dose 650 MG; Start 03/29/17 at 13:30 Docusate Sodium (Colace) 100 mg Q12H PRN PO CONSTIPATION; Start 03/29/17 at 14: 00 Heparin Sodium (Porcine) (Heparin (5000 Units/0.5 ml)) 5,000 unit Q8 SC Last administered on 04/02/17 13:48; Admin Dose 5,000 UNIT; Start 03/29/17 at 14:00 Diagnostic Test (Pha) (Accu-Chek) 1 ea 02 XX ; Start 03/30/17 at 02:00 Miscellaneous Information 1 ea NOTE XX ; Start 03/29/17 at 14:00 Glucose (Glutose) 15 gm Q15M PRN PO DECREASED GLUCOSE; Start 03/29/17 at 14:00 Glucose (Glutose) 22.5 gm Q15M PRN PO DECREASED GLUCOSE; Start 03/29/17 at 14: 00 Dextrose (D50w Syringe) 25 ml Q15M PRN IV DECREASED GLUCOSE; Start 03/29/17 at 14:00 Dextrose (D50w Syringe) 50 ml Q15M PRN IV DECREASED GLUCOSE; Start 03/29/17 at 14:00 Glucagon (Glucagen) 1 mg Q15M PRN IM DECREASED GLUCOSE; Start 03/29/17 at 14:00 Glucose (Glutose) 15 gm Q15M PRN BUCCAL DECREASED GLUCOSE; Start 03/29/17 at 14 :00 Hydralazine HCl (Apresoline) 10 mg Q4H PRN IV ELEVATED BLOOD PRESSURE Last administered on 03/29/17t 15:34; Admin Dose 10 MG; Start 03/29/17 at 15:00 SUSAN GUEVARA MD Apr 02, 2017 15:59
[2017-04-02 20:00] VITALS: BP 149/65; RESP 20
--- NOTE | 2017-04-02 20:17 | PN ---
Date/Time of Note Date/Time of Note DATE: 04/02/17 TIME: 20:13 Assessment/Plan VTE Prophylaxis VTE Prophylaxis Intervention: other Lines/Catheters IV Catheter Type (from Nrs): Peripheral IV Urinary Cath still in place: Yes Reason Cath still needed: urinary retention Assessment/Plan Chief Complaint/Hosp Course Pelvic mass with urinary obstruction Problems: Assessment/Plan A- doing sl better and surgery pending likely Wed possibly Tue. P- start bowel prep tomorrow and explained why again Subjective 24 Hr Interval Summary Free Text/Dictation Feels slightly better. No N/V but still urinary retention and minimally OOB. Exam/Review of Systems Vital Signs Vitals Vital Signs Date Time Temp Pulse Resp B/P Pulse Ox O2 Delivery O2 Flow Rate FiO2 04/02/17 14:37 98.3 63 18 135/63 95 03/29/17 19:51 Room Air Intake and Output 04/01/17 04/01/17 04/02/17 15:00 23:00 07:00 Intake Total 2930 ml 370 ml Output Total 2300 ml Balance 630 ml 370 ml Results Result Diagram: 04/02/17 0526 04/02/17 0526 Results 24 hrs Laboratory Tests Test 04/01/17 21:35 04/02/17 05:26 04/02/17 07:54 04/02/17 12:13 Bedside Glucose 121 123 167 White Blood Count 7.8 Red Blood Count 3.55 L Hemoglobin 10.2 L Hematocrit 30.1 L Mean Corpuscular Volume 84.8 Mean Corpuscular Hemoglobin 28.7 L Mean Corpuscular Hemoglobin Concent 33.9 Red Cell Distribution Width 13.9 Platelet Count 230 Mean Platelet Volume 10.2 Neutrophils % 60.8 Lymphocytes % 26.7 Monocytes % 8.9 Eosinophils % 2.6 Basophils % 0.6 Nucleated Red Blood Cells % 0.0 Neutrophils # 4.7 Lymphocytes # 2.1 Monocytes # 0.7 Eosinophils # 0.2 Basophils # 0.1 Nucleated Red Blood Cells # 0.0 Sodium Level 130 L Potassium Level 3.7 Chloride Level 96 L Carbon Dioxide Level 29 Anion Gap 9 Blood Urea Nitrogen 19 Creatinine 0.84 Glucose Level 122 Calcium Level 9.0 Phosphorus Level 3.8 Magnesium Level 1.8 Albumin 3.5 Test 04/02/17 17:30 Bedside Glucose 119 Medications Medications Current Medications Atorvastatin Calcium (Lipitor) 20 mg HS PO Last administered on 04/01/17 21:31 ; Admin Dose 20 MG; Start 03/29/17 at 21:00 Bethanechol Chloride (Urecholine) 25 mg TID PO Last administered on 04/02/17 12:43; Admin Dose 25 MG; Start 03/29/17 at 15:00 Carvedilol (Coreg) 12.5 mg BID PO Last administered on 04/02/17 08:27; Admin Dose 12.5 MG; Start 03/29/17 at 14:00 Chlorthalidone (Hygroton) 25 mg DAILY PO Last administered on 04/02/17 08:27; Admin Dose 25 MG; Start 03/30/17 at 09:00 Cholecalciferol (Vitamin D) 5,000 unit DAILY PO Last administered on 04/02/17 08:27; Admin Dose 5,000 UNIT; Start 03/30/17 at 09:00 Clopidogrel Bisulfate (plaVIX) 75 mg DAILY PO Last administered on 03/30/17 08 :20; Admin Dose 75 MG; Start 03/30/17 at 09:00; Status Future Hold Levothyroxine Sodium (Synthroid) 50 mcg DAILY@06 PO Last administered on 05:47; Admin Dose 50 MCG; Start 03/30/17 at 06:00 Tamsulosin HCl (Flomax) 0.4 mg HS PO Last administered on 04/01/17 21:32; Admin Dose 0.4 MG; Start 03/29/17 at 21:00 Pantoprazole 40 mg 40 mg DAILY@06 PO Last administered on 04/02/17 05:47; Admin Dose 40 MG; Start 03/30/17 at 06:00 Sodium Chloride (NS) 1,000 ml @ 75 mls/hr [id number] IV Last administered on 04/01 21:30; Admin Dose 75 MLS/HR; Start 03/29/17 at 13:21 Ondansetron HCl (Zofran Inj) 4 mg Q6H PRN IV NAUSEA AND/OR VOMITING; Start at 13:30 Acetaminophen (Tylenol Tab) 650 mg Q6H PRN PO PAIN LEVEL 1-3 OR FEVER Last administered on 04/02/17 10:20; Admin Dose 650 MG; Start 03/29/17 at 13:30 Docusate Sodium (Colace) 100 mg Q12H PRN PO CONSTIPATION; Start 03/29/17 at 14: 00 Heparin Sodium (Porcine) (Heparin (5000 Units/0.5 ml)) 5,000 unit Q8 SC Last administered on 04/02/17 13:48; Admin Dose 5,000 UNIT; Start 03/29/17 at 14:00 Diagnostic Test (Pha) (Accu-Chek) 1 ea 02 XX ; Start 03/30/17 at 02:00 Miscellaneous Information 1 ea NOTE XX ; Start 03/29/17 at 14:00 Glucose (Glutose) 15 gm Q15M PRN PO DECREASED GLUCOSE; Start 03/29/17 at 14:00 Glucose (Glutose) 22.5 gm Q15M PRN PO DECREASED GLUCOSE; Start 03/29/17 at 14: 00 Dextrose (D50w Syringe) 25 ml Q15M PRN IV DECREASED GLUCOSE; Start 03/29/17 at 14:00 Dextrose (D50w Syringe) 50 ml Q15M PRN IV DECREASED GLUCOSE; Start 03/29/17 at 14:00 Glucagon (Glucagen) 1 mg Q15M PRN IM DECREASED GLUCOSE; Start 03/29/17 at 14:00 Glucose (Glutose) 15 gm Q15M PRN BUCCAL DECREASED GLUCOSE; Start 03/29/17 at 14 :00 Hydralazine HCl (Apresoline) 10 mg Q4H PRN IV ELEVATED BLOOD PRESSURE Last administered on 03/29/17 15:34; Admin Dose 10 MG; Start 03/29/17 at 15:00 KOKI REAGAN MD Apr 02, 2017 20:16
[2017-04-02] MEDS: ATORVASTATIN 20 MG TAB PO SCH (21:10)
[2017-04-02] MEDS: TAMSULOSIN (SR) 0.4 MG CAP PO SCH (21:11)
[2017-04-03 02:00] VITALS: BP 135/71; RESP 18
[2017-04-03] MEDS: ACCU-CHEK XX SCH (02:00)
[2017-04-03] MEDS: PANTOPRAZOLE (EC) 40 MG TAB PO SCH (05:47)
[2017-04-03] MEDS: LEVOTHYROXINE 50 MCG TAB PO SCH (05:47)
[2017-04-03] MEDS: HEPARIN 5,000 UNIT/0.5 ML VIAL SC SCH ×2 (05:52→14:00)
[2017-04-03 05:57] LABS: BASOPHIL # 0.1 10^3/ul (0.0-0.1); BASOPHILS % 0.8 % (0.0-2.0); EOSINOPHILS # 0.2 10^3/ul (0.0-0.5); EOSINOPHILS % 2.7 % (0.0-7.0); HEMATOCRIT 29.9 % (37.0-47.0); HEMOGLOBIN 9.8 g/dl (12.0-16.0); LYMPHOCYTES # 2.1 10^3/ul (0.8-2.9); LYMPHOCYTES % 27.1 % (15.0-51.0); MEAN CORPUSCULAR HEMOGLOBIN 27.9 pg (29.0-33.0); MEAN CORPUSCULAR HGB CONC 32.8 g/dl (32.0-37.0); MEAN CORPUSCULAR VOLUME 85.2 fl (82.0-101.0); MEAN PLATELET VOLUME 10.6 fl (7.4-10.4); MONOCYTE # 0.7 10^3/ul (0.3-0.9); MONOCYTES % 8.9 % (0.0-11.0); NEUTROPHIL # 4.7 10^3/ul (1.6-7.5); NEUTROPHILS % 60.1 % (39.0-77.0); PLATELET COUNT 225 10^3/UL (140-415); RED BLOOD COUNT 3.51 10^6/ul (4.20-5.40); RED CELL DISTRIBUTION WIDTH 14.1 % (11.5-14.5); WHITE BLOOD COUNT 7.8 10^3/ul (4.8-10.8)
[2017-04-03 06:27] LABS: ALBUMIN 3.5 g/dl (3.3-4.9); CALCIUM 8.8 mg/dl (8.4-10.2); CREATININE 0.82 mg/dl (0.44-1.00); MAGNESIUM 1.6 mg/dl (1.7-2.5); PHOSPHORUS 3.8 mg/dl (2.5-4.9); POTASSIUM 3.5 mmol/L (3.5-5.1)
[2017-04-03 07:31] VITALS: BP 140/64; RESP 18
[2017-04-03] MEDS ORDERED: PEG/ELECTROLYTES 4L BTL PO ONE (08:00)
[2017-04-03] MEDS: CHOLECALCIFEROL 1,000 UNIT TAB PO SCH (08:09)
[2017-04-03] MEDS: BETHANECHOL 25 MG TAB PO SCH ×3 (08:14→20:56)
[2017-04-03] MEDS: INSULIN ASPART [NOVOLOG] 3 ML PEN SC SCH ×4 (08:14→21:00)
[2017-04-03] MEDS: CHLORTHALIDONE 25 MG TAB PO SCH (08:14)
[2017-04-03] MEDS: SOD CHLORIDE 0.9% 1,000 ML IV SCH ×2 (13:21→16:49)
[2017-04-03] MEDS ORDERED: MAGNESIUM SULFATE 1 GM/D5W 100 ML IVPB SCH (13:30)
--- NOTE | 2017-04-03 14:30 | PN ---
Date/Time of Note Date/Time of Note DATE: 04/03/17 TIME: 14:22 Assessment/Plan VTE Prophylaxis VTE Prophylaxis Intervention: SCD's Lines/Catheters IV Catheter Type (from Nrs): Peripheral IV Urinary Cath still in place: Yes Reason Cath still needed: urinary retention Assessment/Plan Chief Complaint/Hosp Course 1. Urinary retention secondary to pelvic mass - Dr. Tena consulted and appreciate recommendations. Plans for Laparoscopic BSO, possible hysterectomy, possibly staging - Plavix has been on hold since 03/30 and should be held until surgery. Per Dr. Moreno, patient is on the schedule for Monday in the OR but will try for Monday if availability opens up. holding heparin before surgery, SCD in the meantime. - Will start bowel prep on today in anticipation for surgery on or Monday - Patient has known about cyst in ovary since 12/2016 - CT abd/pelvis showed 12 cm L adnexal cystic mass that displaces adjacent colon as well as displaces the uterus to the right of midline 2. Anemia of chronic disease - FOBT negative - no acute bleeding appreciated - will continue monitoring 3. Hyponatremia - will continue monitoring - urine studies ordered - asymptomatic at this time 4. DM - Was on Metformin at home and will hold - ISS and accuchecks - A1c 6.8 5. HTN - stable - PRN Labetalol and Hydralazine to keep SBP <160 6. CAD s/p stent 4 years ago - Plavix on hold since 03/30 7. HLP - statin 8. Disposition - Plans for surgery on Monday, possibly Monday. Plavix currently on hold - Will keep NPO after midnight and hold heparin doses prior to surgery Problems: Subjective 24 Hr Interval Summary Free Text/Dictation patient awaiting surgery. family at bedside, all questions answered, patient has no new complaints. Exam/Review of Systems Vital Signs Vitals Vital Signs Date Time Temp Pulse Resp B/P Pulse Ox O2 Delivery O2 Flow Rate FiO2 04/03/17 07:31 98.6 61 18 140/64 94 Intake and Output 04/02/17 04/02/17 04/03/17 15:00 23:00 07:00 Intake Total 1400 ml 965 ml Output Total 1100 ml 1000 ml Balance 300 ml -35 ml Exam Constitutional: alert, oriented, well developed Respiratory: clear to auscultation, normal air movement, No crackles/rales, No diminished breath sounds, No wheezing Cardiovascular: , egular rate and rhythm, systolic murmur Gastrointestinal: distended, soft, non tender, No rebound or guarding Extremities: normal pulses, mild swelling of right ankle but no ecchymosis, erythema, or disfigurement appreciated Skin: nl turgor Results Result Diagram: 04/03/17 0445 04/03/17 0445 Results 24 hrs Laboratory Tests Test 04/02/17 17:30 04/02/17 21:13 04/03/17 04:45 04/03/17 08:05 Bedside Glucose 119 118 124 White Blood Count 7.8 Red Blood Count 3.51 L Hemoglobin 9.8 L Hematocrit 29.9 L Mean Corpuscular Volume 85.2 Mean Corpuscular Hemoglobin 27.9 L Mean Corpuscular Hemoglobin Concent 32.8 Red Cell Distribution Width 14.1 Platelet Count 225 Mean Platelet Volume 10.6 H Neutrophils % 60.1 Lymphocytes % 27.1 Monocytes % 8.9 Eosinophils % 2.7 Basophils % 0.8 Nucleated Red Blood Cells % 0.0 Neutrophils # 4.7 Lymphocytes # 2.1 Monocytes # 0.7 Eosinophils # 0.2 Basophils # 0.1 Nucleated Red Blood Cells # 0.0 Sodium Level 131 L Potassium Level 3.5 Chloride Level 95 L Carbon Dioxide Level 28 Anion Gap 12 Blood Urea Nitrogen 15 Creatinine 0.82 Glucose Level 116 Calcium Level 8.8 Phosphorus Level 3.8 Magnesium Level 1.6 L Albumin 3.5 Test 04/03/17 12:18 Bedside Glucose 113 Medications Medications Current Medications Atorvastatin Calcium (Lipitor) 20 mg HS PO Last administered on 04/02/17 21:10 ; Admin Dose 20 MG; Start 03/29/17 at 21:00 Bethanechol Chloride (Urecholine) 25 mg TID PO Last administered on 04/03/17 12:14; Admin Dose 25 MG; Start 03/29/17 at 15:00 Carvedilol (Coreg) 12.5 mg BID PO Last administered on 04/03/17 08:10; Admin Dose 12.5 MG; Start 03/29/17 at 14:00 Chlorthalidone (Hygroton) 25 mg DAILY PO Last administered on 04/03/17 08:14; Admin Dose 25 MG; Start 03/30/17 at 09:00 Cholecalciferol (Vitamin D) 5,000 unit DAILY PO Last administered on 04/03/17 08:09; Admin Dose 5,000 UNIT; Start 03/30/17 at 09:00 Clopidogrel Bisulfate (plaVIX) 75 mg DAILY PO Last administered on 03/30/17 08 :20; Admin Dose 75 MG; Start 03/30/17 at 09:00; Status Future Hold Levothyroxine Sodium (Synthroid) 50 mcg DAILY@06 PO Last administered on 05:47; Admin Dose 50 MCG; Start 03/30/17 at 06:00 Tamsulosin HCl (Flomax) 0.4 mg HS PO Last administered on 04/02/17 21:11; Admin Dose 0.4 MG; Start 03/29/17 at 21:00 Pantoprazole 40 mg 40 mg DAILY@06 PO Last administered on 04/03/17 05:47; Admin Dose 40 MG; Start 03/30/17 at 06:00 Sodium Chloride (NS) 1,000 ml @ 75 mls/hr [id number] IV Last administered on 04/02 23:48; Admin Dose 75 MLS/HR; Start 03/29/17 at 13:21 Ondansetron HCl (Zofran Inj) 4 mg Q6H PRN IV NAUSEA AND/OR VOMITING; Start at 13:30 Acetaminophen (Tylenol Tab) 650 mg Q6H PRN PO PAIN LEVEL 1-3 OR FEVER Last administered on 04/02/17 10:20; Admin Dose 650 MG; Start 03/29/17 at 13:30 Docusate Sodium (Colace) 100 mg Q12H PRN PO CONSTIPATION; Start 03/29/17 at 14: 00 Diagnostic Test (Pha) (Accu-Chek) 1 ea 02 XX ; Start 03/30/17 at 02:00 Miscellaneous Information 1 ea NOTE XX ; Start 03/29/17 at 14:00 Glucose (Glutose) 15 gm Q15M PRN PO DECREASED GLUCOSE; Start 03/29/17 at 14:00 Glucose (Glutose) 22.5 gm Q15M PRN PO DECREASED GLUCOSE; Start 03/29/17 at 14: 00 Dextrose (D50w Syringe) 25 ml Q15M PRN IV DECREASED GLUCOSE; Start 03/29/17 at 14:00 Dextrose (D50w Syringe) 50 ml Q15M PRN IV DECREASED GLUCOSE; Start 03/29/17 at 14:00 Glucagon (Glucagen) 1 mg Q15M PRN IM DECREASED GLUCOSE; Start 03/29/17 at 14:00 Glucose (Glutose) 15 gm Q15M PRN BUCCAL DECREASED GLUCOSE; Start 03/29/17 at 14 :00 Hydralazine HCl 10 mg 10 mg Q4H PRN IV ELEVATED BLOOD PRESSURE Last administered on 03/29/17t 15:34; Admin Dose 10 MG; Start 03/29/17 at 15:00 Magnesium Sulfate/ Dextrose (Magnesium Sulfate 1 Gm/D5W) 100 ml @ 100 mls/hr ONCE IVPB ; Start 04/03/17 at 13:30; Stop 04/03/17 at 14:29 HENRY WILLSON Apr 03, 2017 14:30
[2017-04-03 15:02] VITALS: BP 187/73; RESP 18
[2017-04-03] MEDS: hydrALAzine 20 MG INJ IV PRN (15:24)
[2017-04-03 16:00] VITALS: BP 150/69; PULSE 70
[2017-04-03 20:45] VITALS: BP 142/63; RESP 18
[2017-04-03] MEDS: ATORVASTATIN 20 MG TAB PO SCH (20:56)
[2017-04-03] MEDS: TAMSULOSIN (SR) 0.4 MG CAP PO SCH (20:56)
[2017-04-03] MEDS: ACETAMINOPHEN 325 MG TAB PO PRN (21:02)
[2017-04-04] MEDS: ACCU-CHEK XX SCH (01:42)
[2017-04-04 02:00] VITALS: BP 118/56; RESP 18
[2017-04-04 05:27] LABS: BASOPHIL # 0.1 10^3/ul (0.0-0.1); BASOPHILS % 0.8 % (0.0-2.0); EOSINOPHILS # 0.2 10^3/ul (0.0-0.5); HEMATOCRIT 29.9 % (37.0-47.0); HEMOGLOBIN 9.8 g/dl (12.0-16.0); LYMPHOCYTES # 1.8 10^3/ul (0.8-2.9); LYMPHOCYTES % 28.3 % (15.0-51.0); MEAN CORPUSCULAR HEMOGLOBIN 27.8 pg (29.0-33.0); MEAN CORPUSCULAR HGB CONC 32.8 g/dl (32.0-37.0); MEAN CORPUSCULAR VOLUME 84.7 fl (82.0-101.0); MEAN PLATELET VOLUME 10.1 fl (7.4-10.4); MONOCYTE # 0.6 10^3/ul (0.3-0.9); MONOCYTES % 10.1 % (0.0-11.0); NEUTROPHIL # 3.6 10^3/ul (1.6-7.5); NEUTROPHILS % 57.5 % (39.0-77.0); PLATELET COUNT 227 10^3/UL (140-415); RED BLOOD COUNT 3.53 10^6/ul (4.20-5.40); WHITE BLOOD COUNT 6.3 10^3/ul (4.8-10.8)
[2017-04-04 05:38] LABS: INR 1.09; PROTIME 14.1 Sec (12.2-14.2); PT RATIO 1.1
[2017-04-04 05:51] LABS: CALCIUM 8.9 mg/dl (8.4-10.2); CREATININE 0.75 mg/dl (0.44-1.00); MAGNESIUM 1.6 mg/dl (1.7-2.5); PHOSPHORUS 3.7 mg/dl (2.5-4.9); POTASSIUM 3.4 mmol/L (3.5-5.1)
[2017-04-04] MEDS: LEVOTHYROXINE 50 MCG TAB PO SCH (06:07)
[2017-04-04] MEDS: PANTOPRAZOLE (EC) 40 MG TAB PO SCH (06:07)
[2017-04-04 07:41] VITALS: BP 111/50; RESP 16
[2017-04-04] MEDS: INSULIN ASPART [NOVOLOG] 3 ML PEN SC SCH ×4 (07:55→21:00)
[2017-04-04] MEDS: CHOLECALCIFEROL 1,000 UNIT TAB PO SCH (09:01)
[2017-04-04] MEDS: BETHANECHOL 25 MG TAB PO SCH ×3 (09:01→22:19)
[2017-04-04] MEDS: CHLORTHALIDONE 25 MG TAB PO SCH (09:01)
[2017-04-04] MEDS: SOD CHLORIDE 0.9% 1,000 ML IV SCH (11:00)
[2017-04-04] MEDS ORDERED: MAGNESIUM SULFATE 1 GM/D5W 100 ML IVPB ONE (13:30)
[2017-04-04] MEDS ORDERED: POTASSIUM CHLORIDE 250 ML IVPB ONE (13:30)
[2017-04-04 14:00] VITALS: BP 164/66; RESP 18
--- NOTE | 2017-04-04 15:04 | RADRPT ---
PROCEDURE: XR Chest. CLINICAL INDICATION: Preoperative. TECHNIQUE: Single frontal view. COMPARISON: 04/02/2016. FINDINGS: The lungs are clear. The heart is enlarged. There is calcification in the aorta consistent with atherosclerosis. Previous ly noted left arm PICC line has been removed. There is no pleural effusion. There is no pneumothorax. IMPRESSION: 1. Cardiomegaly and atherosclerosis. 2. PICC line removed. 3. Clear lungs. RPTAT: QQ .Konrad Hester MD, MD Date Time Electronically viewed and signed by .Konrad Hester MD, MD on 04/04/2017 15:04 .R/
--- NOTE | 2017-04-04 15:42 | PN ---
Date/Time of Note Date/Time of Note DATE: 04/04/17 TIME: 15:40 Assessment/Plan VTE Prophylaxis VTE Prophylaxis Intervention: SCD's Lines/Catheters IV [facility]from [facility] [place] [facility] Urinary Cath still in place: Yes Reason Cath still needed: urinary retention Assessment/Plan Chief Complaint/Hosp Course 1. Urinary retention secondary to pelvic mass - Dr. Tena consulted and appreciate recommendations. Plans for Laparoscopic BSO, possible hysterectomy, possibly staging - Plavix has been on hold since 03/30 and should be held until surgery. Per Dr. Moreno, patient is on the schedule for Monday in the OR. holding heparin before surgery, SCD in the meantime. - bowel prep - Patient has known about cyst in ovary since 12/2016 - CT abd/pelvis showed 12 cm L adnexal cystic mass that displaces adjacent colon as well as displaces the uterus to the right of midline 2. Anemia of chronic disease - FOBT negative - no acute bleeding appreciated - will continue monitoring 3. Hyponatremia - will continue monitoring - asymptomatic at this time 4. DM - Was on Metformin at home and will hold - ISS and accuchecks - A1c 6.8 5. HTN - stable - PRN Labetalol and Hydralazine to keep SBP <160 6. CAD s/p stent 4 years ago - Plavix on hold since 03/30 7. HLP - statin 8. Disposition - Plans for surgery on Monday,Plavix currently on hold - Will keep NPO after midnight and hold heparin doses prior to surgery Problems: Subjective 24 Hr Interval Summary Free Text/Dictation no acute compaints at this time, 1 bowel movement since prep, awaiting surgery. Exam/Review of Systems Vital Signs Vitals Vital Signs Date Time Temp Pulse Resp B/P Pulse Ox O2 Delivery O2 Flow Rate FiO2 04/04/17 14:00 97.3 58 18 164/66 94 Intake and Output 04/03/17 04/03/17 04/04/17 15:00 23:00 07:00 Intake Total 0 ml 1780 ml 850 ml Output Total 2000 ml 300 ml Balance 0 ml -220 ml 550 ml Exam Constitutional: alert, oriented, well developed Respiratory: clear to auscultation, normal air movement, No crackles/rales, No diminished breath sounds, No wheezing Cardiovascular: regular rate and rhythm, systolic murmur Gastrointestinal: distended, soft, non tender, No rebound or guarding Extremities: normal pulses, mild swelling of right ankle but no ecchymosis, erythema, or disfigurement appreciated Skin: nl turgor Results Result Diagram: 04/04/17 0504 04/04/17 0456 Results 24 hrs Laboratory Tests Test 04/03/17 17:19 04/03/17 20:53 04/04/17 04:56 04/04/17 05:04 Bedside Glucose 112 106 Prothrombin Time 14.1 Prothrombin Time Ratio 1.1 INR International Normalized Ratio 1.09 Sodium Level 133 L Potassium Level 3.4 L Chloride Level 98 Carbon Dioxide Level 28 Anion Gap 10 Blood Urea Nitrogen 12 Creatinine 0.75 Glucose Level 110 Calcium Level 8.9 Phosphorus Level 3.7 Magnesium Level 1.6 L White Blood Count 6.3 Red Blood Count 3.53 L Hemoglobin 9.8 L Hematocrit 29.9 L Mean Corpuscular Volume 84.7 Mean Corpuscular Hemoglobin 27.8 L Mean Corpuscular Hemoglobin Concent 32.8 Red Cell Distribution Width 14.0 Platelet Count 227 Mean Platelet Volume 10.1 Neutrophils % 57.5 Lymphocytes % 28.3 Monocytes % 10.1 Eosinophils % 3.0 Basophils % 0.8 Nucleated Red Blood Cells % 0.0 Neutrophils # 3.6 Lymphocytes # 1.8 Monocytes # 0.6 Eosinophils # 0.2 Basophils # 0.1 Nucleated Red Blood Cells # 0.0 Test 04/04/17 07:53 04/04/17 11:51 Bedside Glucose 100 114 Medications Medications Current Medications Atorvastatin Calcium (Lipitor) 20 mg HS PO Last administered on 04/03/17 20:56 ; Admin Dose 20 MG; Start 03/29/17 at 21:00 Bethanechol Chloride (Urecholine) 25 mg TID PO Last administered on 04/04/17 13:24; Admin Dose 25 MG; Start 03/29/17 at 15:00 Carvedilol (Coreg) 12.5 mg BID PO Last administered on 04/04/17 09:01; Admin Dose 12.5 MG; Start 03/29/17 at 14:00 Chlorthalidone (Hygroton) 25 mg DAILY PO Last administered on 04/04/17 09:01; Admin Dose 25 MG; Start 03/30/17 at 09:00 Cholecalciferol (Vitamin D) 5,000 unit DAILY PO Last administered on 04/04/17 09:01; Admin Dose 5,000 UNIT; Start 03/30/17 at 09:00 Clopidogrel Bisulfate (plaVIX) 75 mg DAILY PO Last administered on 03/30/17 08 :20; Admin Dose 75 MG; Start 03/30/17 at 09:00; Status Future Hold Levothyroxine Sodium (Synthroid) 50 mcg DAILY@06 PO Last administered on 06:07; Admin Dose 50 MCG; Start 03/30/17 at 06:00 Tamsulosin HCl (Flomax) 0.4 mg HS PO Last administered on 04/03/17 20:56; Admin Dose 0.4 MG; Start 03/29/17 at 21:00 Pantoprazole 40 mg 40 mg DAILY@06 PO Last administered on 04/04/17 06:07; Admin Dose 40 MG; Start 03/30/17 at 06:00 Sodium Chloride (NS) 1,000 ml @ 75 mls/hr [id number] IV Last administered on 04/04 11:00; Admin Dose 75 MLS/HR; Start 03/29/17 at 13:21 Ondansetron HCl (Zofran Inj) 4 mg Q6H PRN IV NAUSEA AND/OR VOMITING; Start at 13:30 Acetaminophen (Tylenol Tab) 650 mg Q6H PRN PO PAIN LEVEL 1-3 OR FEVER Last administered on 04/03/17 21:02; Admin Dose 650 MG; Start 03/29/17 at 13:30 Docusate Sodium (Colace) 100 mg Q12H PRN PO CONSTIPATION; Start 03/29/17 at 14: 00 Diagnostic Test (Pha) (Accu-Chek) 1 ea 02 XX ; Start 03/30/17 at 02:00 Miscellaneous Information 1 ea NOTE XX ; Start 03/29/17 at 14:00 Glucose (Glutose) 15 gm Q15M PRN PO DECREASED GLUCOSE; Start 03/29/17 at 14:00 Glucose (Glutose) 22.5 gm Q15M PRN PO DECREASED GLUCOSE; Start 03/29/17 at 14: 00 Dextrose (D50w Syringe) 25 ml Q15M PRN IV DECREASED GLUCOSE; Start 03/29/17 at 14:00 Dextrose (D50w Syringe) 50 ml Q15M PRN IV DECREASED GLUCOSE; Start 03/29/17 at 14:00 Glucagon (Glucagen) 1 mg Q15M PRN IM DECREASED GLUCOSE; Start 03/29/17 at 14:00 Glucose (Glutose) 15 gm Q15M PRN BUCCAL DECREASED GLUCOSE; Start 03/29/17 at 14 :00 Hydralazine HCl 10 mg 10 mg Q4H PRN IV ELEVATED BLOOD PRESSURE Last administered on 04/03/17t 15:24; Admin Dose 10 MG; Start 03/29/17 at 15:00 Potassium Chloride (KCl 40 MEQ/250 ML NS) 250 ml @ 62.5 mls/hr ONCE ONCE IVPB ; Start 04/04/17 at 13:30; Stop 04/04/17 at 17:29 HENRY WILLSON Apr 04, 2017 15:42
[2017-04-04] MEDS: hydrALAzine 20 MG INJ IV PRN (17:26)
[2017-04-04 19:38] VITALS: BP 177/66; RESP 20
--- NOTE | 2017-04-04 21:56 | PN ---
Date/Time of Note Date/Time of Note DATE: 04/04/17 TIME: 21:53 Assessment/Plan VTE Prophylaxis VTE Prophylaxis Intervention: heparin Lines/Catheters IV Catheter Type (from Nrsg): [place] Urinary Cath still in place: Yes Reason Cath still needed: urinary retention Assessment/Plan Chief Complaint/Hosp Course Pelvic mass with urinary obstruction Problems: Assessment/Plan A- tolerating prep P- surgery as planned tomorrow Subjective 24 Hr Interval Summary Free Text/Dictation Leslie pain and clear liq and bowel prep. Exam/Review of Systems Vital Signs Vitals Vital Signs Date Time Temp Pulse Resp B/P Pulse Ox O2 Delivery O2 Flow Rate FiO2 04/04/17 19:38 98.5 83 20 177/66 96 Intake and Output 04/03/17 04/03/17 04/04/17 15:00 23:00 07:00 Intake Total 0 ml 1780 ml 850 ml Output Total 2000 ml 300 ml Balance 0 ml -220 ml 550 ml Exam Resp- clear CVS- NSR Abd- mild pain but distended. Ext- NT no edema Results Result Diagram: 04/04/17 0504 04/04/17 0456 Results 24 hrs Laboratory Tests Test 04/04/17 04:56 04/04/17 05:04 04/04/17 07:53 04/04/17 11:51 Prothrombin Time 14.1 Prothrombin Time Ratio 1.1 INR International Normalized Ratio 1.09 Sodium Level 133 L Potassium Level 3.4 L Chloride Level 98 Carbon Dioxide Level 28 Anion Gap 10 Blood Urea Nitrogen 12 Creatinine 0.75 Glucose Level 110 Calcium Level 8.9 Phosphorus Level 3.7 Magnesium Level 1.6 L White Blood Count 6.3 Red Blood Count 3.53 L Hemoglobin 9.8 L Hematocrit 29.9 L Mean Corpuscular Volume 84.7 Mean Corpuscular Hemoglobin 27.8 L Mean Corpuscular Hemoglobin Concent 32.8 Red Cell Distribution Width 14.0 Platelet Count 227 Mean Platelet Volume 10.1 Neutrophils % 57.5 Lymphocytes % 28.3 Monocytes % 10.1 Eosinophils % 3.0 Basophils % 0.8 Nucleated Red Blood Cells % 0.0 Neutrophils # 3.6 Lymphocytes # 1.8 Monocytes # 0.6 Eosinophils # 0.2 Basophils # 0.1 Nucleated Red Blood Cells # 0.0 Bedside Glucose 100 114 Test 04/04/17 17:12 Bedside Glucose 125 Medications Medications Current Medications Atorvastatin Calcium (Lipitor) 20 mg HS PO Last administered on 04/03/17 20:56 ; Admin Dose 20 MG; Start 03/29/17 at 21:00 Bethanechol Chloride (Urecholine) 25 mg TID PO Last administered on 04/04/17 13:24; Admin Dose 25 MG; Start 03/29/17 at 15:00 Carvedilol (Coreg) 12.5 mg BID PO Last administered on 04/04/17 09:01; Admin Dose 12.5 MG; Start 03/29/17 at 14:00 Chlorthalidone (Hygroton) 25 mg DAILY PO Last administered on 04/04/17 09:01; Admin Dose 25 MG; Start 03/30/17 at 09:00 Cholecalciferol (Vitamin D) 5,000 unit DAILY PO Last administered on 04/04/17 09:01; Admin Dose 5,000 UNIT; Start 03/30/17 at 09:00 Clopidogrel Bisulfate (plaVIX) 75 mg DAILY PO Last administered on 03/30/17 08 :20; Admin Dose 75 MG; Start 03/30/17 at 09:00; Status Future Hold Levothyroxine Sodium (Synthroid) 50 mcg DAILY@06 PO Last administered on 06:07; Admin Dose 50 MCG; Start 03/30/17 at 06:00 Tamsulosin HCl (Flomax) 0.4 mg HS PO Last administered on 04/03/17 20:56; Admin Dose 0.4 MG; Start 03/29/17 at 21:00 Pantoprazole 40 mg 40 mg DAILY@06 PO Last administered on 04/04/17 06:07; Admin Dose 40 MG; Start 03/30/17 at 06:00 Sodium Chloride (NS) 1,000 ml @ 75 mls/hr [id number] IV Last administered on 04/04 11:00; Admin Dose 75 MLS/HR; Start 03/29/17 at 13:21 Ondansetron HCl (Zofran Inj) 4 mg Q6H PRN IV NAUSEA AND/OR VOMITING; Start at 13:30 Acetaminophen (Tylenol Tab) 650 mg Q6H PRN PO PAIN LEVEL 1-3 OR FEVER Last administered on 04/03/17 21:02; Admin Dose 650 MG; Start 03/29/17 at 13:30 Docusate Sodium (Colace) 100 mg Q12H PRN PO CONSTIPATION; Start 03/29/17 at 14: 00 Diagnostic Test (Pha) (Accu-Chek) 1 ea 02 XX ; Start 03/30/17 at 02:00 Miscellaneous Information 1 ea NOTE XX ; Start 03/29/17 at 14:00 Glucose (Glutose) 15 gm Q15M PRN PO DECREASED GLUCOSE; Start 03/29/17 at 14:00 Glucose (Glutose) 22.5 gm Q15M PRN PO DECREASED GLUCOSE; Start 03/29/17 at 14: 00 Dextrose (D50w Syringe) 25 ml Q15M PRN IV DECREASED GLUCOSE; Start 03/29/17 at 14:00 Dextrose (D50w Syringe) 50 ml Q15M PRN IV DECREASED GLUCOSE; Start 03/29/17 at 14:00 Glucagon (Glucagen) 1 mg Q15M PRN IM DECREASED GLUCOSE; Start 03/29/17 at 14:00 Glucose (Glutose) 15 gm Q15M PRN BUCCAL DECREASED GLUCOSE; Start 03/29/17 at 14 :00 Hydralazine HCl (Apresoline) 10 mg Q4H PRN IV ELEVATED BLOOD PRESSURE Last administered on 04/04/17t 17:26; Admin Dose 10 MG; Start 03/29/17 at 15:00 Polyethylene Glycol/ Electrolytes (Golytely) 2,000 ml ONCE ONCE PO ; Start at 22:00; Stop 04/04/17 at 22:01; Status UNV KOKI REAGAN MD Apr 04, 2017 21:56
[2017-04-04] MEDS ORDERED: PEG/ELECTROLYTES 4L BTL PO ONE (22:00)
[2017-04-04] MEDS: ATORVASTATIN 20 MG TAB PO SCH (22:18)
[2017-04-04] MEDS: TAMSULOSIN (SR) 0.4 MG CAP PO SCH (22:18)
[2017-04-04] MEDS: ACETAMINOPHEN 325 MG TAB PO PRN (23:28)
[2017-04-05] VITALS (26 sets, daily range): BP systolic 126–180; BP diastolic 51–79; PULSE 68–86; RESP 12–20
[2017-04-05] MEDS: ACCU-CHEK XX SCH (02:00)
[2017-04-05] MEDS: SOD CHLORIDE 0.9% 1,000 ML IV SCH ×3 (03:08→17:51)
[2017-04-05] MEDS: PANTOPRAZOLE (EC) 40 MG TAB PO SCH (06:05)
[2017-04-05] MEDS: LEVOTHYROXINE 50 MCG TAB PO SCH (06:05)
[2017-04-05 06:07] LABS: BASOPHIL # 0.1 10^3/ul (0.0-0.1); BASOPHILS % 0.9 % (0.0-2.0); EOSINOPHILS # 0.3 10^3/ul (0.0-0.5); EOSINOPHILS % 4.4 % (0.0-7.0); HEMATOCRIT 29.4 % (37.0-47.0); HEMOGLOBIN 9.9 g/dl (12.0-16.0); LYMPHOCYTES % 28.4 % (15.0-51.0); MEAN CORPUSCULAR HEMOGLOBIN 28.6 pg (29.0-33.0); MEAN CORPUSCULAR HGB CONC 33.7 g/dl (32.0-37.0); MONOCYTE # 0.6 10^3/ul (0.3-0.9); MONOCYTES % 8.6 % (0.0-11.0); NEUTROPHIL # 3.9 10^3/ul (1.6-7.5); NEUTROPHILS % 57.4 % (39.0-77.0); PLATELET COUNT 229 10^3/UL (140-415); RED BLOOD COUNT 3.46 10^6/ul (4.20-5.40); RED CELL DISTRIBUTION WIDTH 13.9 % (11.5-14.5); WHITE BLOOD COUNT 6.9 10^3/ul (4.8-10.8)
[2017-04-05 06:44] LABS: ALBUMIN 3.2 g/dl (3.3-4.9); ALBUMIN/GLOBULIN RATIO 0.96; BILIRUBIN,INDIRECT 0.6 mg/dl (0-1.1); BILIRUBIN,TOTAL 0.6 mg/dl (0.2-1.3); CALCIUM 9.1 mg/dl (8.4-10.2); CREATININE 0.71 mg/dl (0.44-1.00); POTASSIUM 3.7 mmol/L (3.5-5.1); TOTAL PROTEIN 6.5 g/dl (6.1-8.1)
[2017-04-05 06:52] LABS: MAGNESIUM 1.6 mg/dl (1.7-2.5); PHOSPHORUS 3.6 mg/dl (2.5-4.9)
[2017-04-05 08:07] LABS: INR 1.07; PROTIME 13.9 Sec (12.2-14.2); PT RATIO 1.1
[2017-04-05] MEDS: INSULIN ASPART [NOVOLOG] 3 ML PEN SC SCH ×4 (08:15→21:00)
[2017-04-05] MEDS: CHOLECALCIFEROL 1,000 UNIT TAB PO SCH (08:45)
[2017-04-05] MEDS: BETHANECHOL 25 MG TAB PO SCH ×3 (08:45→21:00)
[2017-04-05] MEDS: CHLORTHALIDONE 25 MG TAB PO SCH (08:48)
[2017-04-05] MEDS ORDERED: THROMBIN 5000 UNIT VIAL ONE (14:57)
[2017-04-05] MEDS ORDERED: METHYLENE BLUE 1% 10 ML INJ ONE (14:57)
[2017-04-05] MEDS ORDERED: SUCCINYLCHOLINE CHLORIDE 100 MG/5 ML SYG IV ONE (15:16)
[2017-04-05] MEDS ORDERED: PROPOFOL 20 ML ONE (15:16)
[2017-04-05] MEDS ORDERED: ROCURONIUM 50 MG INJ ONE ×3 (15:16→16:58)
[2017-04-05] MEDS ORDERED: FENTAnyl 50 MCG/ML VIAL ONE (15:16)
[2017-04-05] MEDS ORDERED: LIDOCAINE 2% (SDV) 5 ML INJ ONE (15:16)
[2017-04-05] MEDS ORDERED: MIDAZOLAM 1 MG/ML 2 ML INJ ONE (15:16)
--- NOTE | 2017-04-05 15:41 | PN ---
Date/Time of Note Date/Time of Note DATE: 04/05/17 TIME: 15:40 Assessment/Plan VTE Prophylaxis VTE Prophylaxis Intervention: SCD's Lines/Catheters [facility] Type (from [facility] Peripheral IV Urinary Cath still in place: Yes Reason Cath still needed: urinary retention Assessment/Plan Chief Complaint/Hosp Course 1. Urinary retention secondary to pelvic mass - Dr. Tena consulted and appreciate recommendations. Plans for Laparoscopic BSO, possible hysterectomy, possibly staging - Plavix has been on hold since 03/30 and should be held until surgery. Per Dr. Moreno, patient is on the schedule for today in the OR. holding heparin before surgery, SCD in the meantime. - bowel prep - Patient has known about cyst in ovary since 12/2016 - CT abd/pelvis showed 12 cm L adnexal cystic mass that displaces adjacent colon as well as displaces the uterus to the right of midline 2. Anemia of chronic disease - FOBT negative - no acute bleeding appreciated - will continue monitoring 3. Hyponatremia - will continue monitoring - asymptomatic at this time 4. DM - Was on Metformin at home and will hold - ISS and accuchecks - A1c 6.8 5. HTN - stable - PRN Labetalol and Hydralazine to keep SBP <160 6. CAD s/p stent 4 years ago - Plavix on hold since 03/30 7. HLP - statin 8. Disposition - surgery today, further dispo pending surgery results Problems: Subjective 24 Hr Interval Summary Free Text/Dictation no acute complaints, awaiting surgery. Exam/Review of Systems Vital Signs Vitals Vital Signs Date Time Temp Pulse Resp B/P Pulse Ox O2 Delivery O2 Flow Rate FiO2 04/05/17 14:32 98.0 72 19 180/72 95 Intake and Output 04/04/17 04/04/17 04/05/17 15:00 23:00 07:00 Intake Total 175 ml 1760 ml 1150 ml Balance 175 ml 1760 ml 1150 ml Exam Constitutional: alert, oriented, well developed Respiratory: clear to auscultation, normal air movement, No crackles/rales, No diminished breath sounds, No wheezing Cardiovascular: regular rate and rhythm, systolic murmur Gastrointestinal: distended, soft, non tender, No rebound or guarding Extremities: normal pulses, mild swelling of right ankle but no ecchymosis, erythema, or disfigurement appreciated Skin: nl turgor Results Result Diagram: 04/05/17 0522 04/05/17 0522 Results 24 hrs Laboratory Tests Test 04/04/17 17:12 04/04/17 22:17 04/05/17 05:22 04/05/17 08:50 Bedside Glucose 125 97 108 White Blood Count 6.9 Red Blood Count 3.46 L Hemoglobin 9.9 L Hematocrit 29.4 L Mean Corpuscular Volume 85.0 Mean Corpuscular Hemoglobin 28.6 L Mean Corpuscular Hemoglobin Concent 33.7 Red Cell Distribution Width 13.9 Platelet Count 229 Mean Platelet Volume 10.0 Neutrophils % 57.4 Lymphocytes % 28.4 Monocytes % 8.6 Eosinophils % 4.4 Basophils % 0.9 Nucleated Red Blood Cells % 0.0 Neutrophils # 3.9 Lymphocytes # 2.0 Monocytes # 0.6 Eosinophils # 0.3 Basophils # 0.1 Nucleated Red Blood Cells # 0.0 Prothrombin Time 13.9 Prothrombin Time Ratio 1.1 INR International Normalized Ratio 1.07 Activated Partial Thromboplast Time 38.3 H Sodium Level 133 L Potassium Level 3.7 Chloride Level 99 Carbon Dioxide Level 27 Anion Gap 11 Blood Urea Nitrogen 10 Creatinine 0.71 Glucose Level 108 Calcium Level 9.1 Phosphorus Level 3.6 Magnesium Level 1.6 L Total Bilirubin 0.6 Direct Bilirubin 0.00 Indirect Bilirubin 0.6 Aspartate Amino Transf (AST/SGOT) 27 Alanine Aminotransferase (ALT/SGPT) 32 Alkaline Phosphatase 72 Total Protein 6.5 Albumin 3.2 L Globulin 3.30 H Albumin/Globulin Ratio 0.96 Test 04/05/17 11:46 04/05/17 14:51 Bedside Glucose 113 110 Medications Medications Current Medications Atorvastatin Calcium (Lipitor) 20 mg HS PO Last administered on 04/04/17 22:18 ; Admin Dose 20 MG; Start 03/29/17 at 21:00 Bethanechol Chloride (Urecholine) 25 mg TID PO Last administered on 04/05/17 08:45; Admin Dose 25 MG; Start 03/29/17 at 15:00 Carvedilol (Coreg) 12.5 mg BID PO Last administered on 04/05/17 08:49; Admin Dose 12.5 MG; Start 03/29/17 at 14:00 Chlorthalidone (Hygroton) 25 mg DAILY PO Last administered on 04/05/17 08:48; Admin Dose 25 MG; Start 03/30/17 at 09:00 Cholecalciferol (Vitamin D) 5,000 unit DAILY PO Last administered on 04/05/17 08:45; Admin Dose 5,000 UNIT; Start 03/30/17 at 09:00 Clopidogrel Bisulfate (plaVIX) 75 mg DAILY PO Last administered on 03/30/17 08 :20; Admin Dose 75 MG; Start 03/30/17 at 09:00; Status Future Hold Levothyroxine Sodium (Synthroid) 50 mcg DAILY@06 PO Last administered on 06:05; Admin Dose 50 MCG; Start 03/30/17 at 06:00 Tamsulosin HCl (Flomax) 0.4 mg HS PO Last administered on 04/04/17 22:18; Admin Dose 0.4 MG; Start 03/29/17 at 21:00 Pantoprazole 40 mg 40 mg DAILY@06 PO Last administered on 04/05/17 06:05; Admin Dose 40 MG; Start 03/30/17 at 06:00 Sodium Chloride (NS) 1,000 ml @ 75 mls/hr [id number] IV Last administered on 04/05 03:08; Admin Dose 75 MLS/HR; Start 03/29/17 at 13:21 Ondansetron HCl (Zofran Inj) 4 mg Q6H PRN IV NAUSEA AND/OR VOMITING; Start at 13:30 Acetaminophen (Tylenol Tab) 650 mg Q6H PRN PO PAIN LEVEL 1-3 OR FEVER Last administered on 04/04/17 23:28; Admin Dose 650 MG; Start 03/29/17 at 13:30 Docusate Sodium (Colace) 100 mg Q12H PRN PO CONSTIPATION; Start 03/29/17 at 14: 00 Diagnostic Test (Pha) (Accu-Chek) 1 ea 02 XX ; Start 03/30/17 at 02:00 Miscellaneous Information 1 ea NOTE XX ; Start 03/29/17 at 14:00 Glucose (Glutose) 15 gm Q15M PRN PO DECREASED GLUCOSE; Start 03/29/17 at 14:00 Glucose (Glutose) 22.5 gm Q15M PRN PO DECREASED GLUCOSE; Start 03/29/17 at 14: 00 Dextrose (D50w Syringe) 25 ml Q15M PRN IV DECREASED GLUCOSE; Start 03/29/17 at 14:00 Dextrose (D50w Syringe) 50 ml Q15M PRN IV DECREASED GLUCOSE; Start 03/29/17 at 14:00 Glucagon (Glucagen) 1 mg Q15M PRN IM DECREASED GLUCOSE; Start 03/29/17 at 14:00 Glucose (Glutose) 15 gm Q15M PRN BUCCAL DECREASED GLUCOSE; Start 03/29/17 at 14 :00 Hydralazine HCl (Apresoline) 10 mg Q4H PRN IV ELEVATED BLOOD PRESSURE Last administered on 04/04/17t 17:26; Admin Dose 10 MG; Start 03/29/17 at 15:00 Olopatadine HCl (Patanol 0.1% Oph) 1 drop BID PRN LEFT EYE ITCHING; Start 04/04 at 23:30 HENRY WILLSON Apr 05, 2017 15:41
[2017-04-05] MEDS ORDERED: CEFAZOLIN 1 GM INJ ONE (16:53)
[2017-04-05] MEDS ORDERED: metroNIDAZOLE 500 MG/NS (PMX) 100 ML IVPB ONE (16:53)
[2017-04-05] MEDS ORDERED: ETOMIDATE 20 MG INJ ONE ×2 (16:58→17:05)
[2017-04-05] MEDS ORDERED: ONDANSETRON 4 MG INJ ONE (17:05)
[2017-04-05] MEDS ORDERED: EPHEDrine SULFATE 50 MG/5 ML SYG ONE (17:05)
[2017-04-05] MEDS ORDERED: HYDROmorphONE 2 MG/ML SYG ONE (17:58)
[2017-04-05] MEDS ORDERED: NEOSTIGMINE 3 MG/3 ML SYRINGE ONE (17:58)
[2017-04-05] MEDS ORDERED: GLYCOPYRROLATE 0.4 MG INJ ONE (17:58)
[2017-04-05] MEDS ORDERED: SUGAMMADEX SODIUM 200 MG/2 ML VIAL IV ONE (18:36)
--- NOTE | 2017-04-05 19:18 | SIPON ---
Date/Time of Note Date/Time of Note DATE: 04/05/17 TIME: 19:15 Operative Report Preoperative Diagnosis Pelvic mass and elevated CA-125 Postoperative Diagnosis Same with ureteral stricture and probable intermittent torsion; path pending Operation/Procedure Performed Laparoscopic BSO, minilap, umbilical hernia repair, bilateral ureteral dissection Surgeon see signature line gallery assistant Dr. Olivares Anesthesia: general Estimated blood loss: 50 - 100 ml's Transfusion Required none Specimen BSO and hernia Grafts/Implants none Complications none KOKI REAGAN MD Apr 05, 2017 19:18
[2017-04-05] MEDS: LACTATED RINGER'S 1,000 ML IV SCH (19:19)
[2017-04-05] MEDS ORDERED: DIPHENHYDRAMINE 50 MG INJ IV PRN (19:30)
[2017-04-05] MEDS ORDERED: LABETALOL HCL 20MG INJ IV PRN (19:30)
[2017-04-05] MEDS ORDERED: HYDROmorphONE (0.2 MG/ML) 10ML SYG IV PRN (19:30)
[2017-04-05] MEDS ORDERED: ONDANSETRON 4 MG INJ IV PRN ×2 (19:30)
[2017-04-05] MEDS: metroNIDAZOLE 500 MG/NS (PMX) 100 ML IVPB SCH (19:30)
[2017-04-05] MEDS ORDERED: hydrALAzine 20 MG INJ IV PRN (19:30)
[2017-04-05] MEDS ORDERED: FENTAnyl 50 MCG/ML VIAL IV PRN (19:30)
[2017-04-05] MEDS ORDERED: CEFAZOLIN 1 GM in SOD CHLORIDE 0.9% 100 ML IVPB SCH (19:30)
[2017-04-05] MEDS ORDERED: HYDROCODONE/APAP (5/325) TAB PO PRN (19:30)
[2017-04-05 20:12] LABS: BASOPHILS % 0.4 % (0.0-2.0); EOSINOPHILS # 0.2 10^3/ul (0.0-0.5); EOSINOPHILS % 2.4 % (0.0-7.0); HEMATOCRIT 28.6 % (37.0-47.0); HEMOGLOBIN 9.4 g/dl (12.0-16.0); LYMPHOCYTES # 1.6 10^3/ul (0.8-2.9); LYMPHOCYTES % 19.5 % (15.0-51.0); MEAN CORPUSCULAR HEMOGLOBIN 28.2 pg (29.0-33.0); MEAN CORPUSCULAR HGB CONC 32.9 g/dl (32.0-37.0); MEAN CORPUSCULAR VOLUME 85.9 fl (82.0-101.0); MEAN PLATELET VOLUME 9.3 fl (7.4-10.4); MONOCYTE # 0.5 10^3/ul (0.3-0.9); MONOCYTES % 6.4 % (0.0-11.0); NEUTROPHIL # 5.6 10^3/ul (1.6-7.5); NEUTROPHILS % 70.9 % (39.0-77.0); PLATELET COUNT 210 10^3/UL (140-415); RED BLOOD COUNT 3.33 10^6/ul (4.20-5.40); WHITE BLOOD COUNT 7.9 10^3/ul (4.8-10.8)
[2017-04-05 20:29] LABS: CALCIUM 8.8 mg/dl (8.4-10.2); CREATININE 0.74 mg/dl (0.44-1.00); POTASSIUM 3.4 mmol/L (3.5-5.1)
[2017-04-05] MEDS: FAMOTIDINE 20 MG TAB PO SCH (21:00)
[2017-04-05] MEDS: ATORVASTATIN 20 MG TAB PO SCH (21:00)
[2017-04-05] MEDS: TAMSULOSIN (SR) 0.4 MG CAP PO SCH (21:00)
[2017-04-05] MEDS: morphine 2 MG INJ IV PRN (21:26)
[2017-04-05] MEDS: CEFAZOLIN 1 GM/50 ML (PMX) 50 ML IVPB SCH (22:45)
[2017-04-06 02:00] VITALS: BP 147/67; RESP 18
[2017-04-06] MEDS: ACCU-CHEK XX SCH (02:00)
[2017-04-06] MEDS: metroNIDAZOLE 500 MG/NS (PMX) 100 ML IVPB SCH ×2 (02:57→11:16)
[2017-04-06] MEDS: morphine 2 MG INJ IV PRN ×2 (02:57→18:07)
[2017-04-06] MEDS: LACTATED RINGER'S 1,000 ML IV SCH ×2 (02:57→05:19)
[2017-04-06 05:21] LABS: BASOPHILS % 0.4 % (0.0-2.0); EOSINOPHILS # 0.2 10^3/ul (0.0-0.5); EOSINOPHILS % 1.9 % (0.0-7.0); HEMATOCRIT 28.9 % (37.0-47.0); HEMOGLOBIN 9.5 g/dl (12.0-16.0); LYMPHOCYTES # 1.3 10^3/ul (0.8-2.9); LYMPHOCYTES % 16.3 % (15.0-51.0); MEAN CORPUSCULAR HEMOGLOBIN 28.2 pg (29.0-33.0); MEAN CORPUSCULAR HGB CONC 32.9 g/dl (32.0-37.0); MEAN CORPUSCULAR VOLUME 85.8 fl (82.0-101.0); MEAN PLATELET VOLUME 9.5 fl (7.4-10.4); MONOCYTE # 0.5 10^3/ul (0.3-0.9); MONOCYTES % 5.9 % (0.0-11.0); NEUTROPHIL # 5.8 10^3/ul (1.6-7.5); NEUTROPHILS % 75.1 % (39.0-77.0); PLATELET COUNT 221 10^3/UL (140-415); RED BLOOD COUNT 3.37 10^6/ul (4.20-5.40); RED CELL DISTRIBUTION WIDTH 13.9 % (11.5-14.5); WHITE BLOOD COUNT 7.7 10^3/ul (4.8-10.8)
[2017-04-06 05:34] LABS: INR 1.11; PROTIME 14.3 Sec (12.2-14.2); PT RATIO 1.1
[2017-04-06 05:48] LABS: ALBUMIN 3.1 g/dl (3.3-4.9); ALBUMIN/GLOBULIN RATIO 1.03; BILIRUBIN,INDIRECT 0.5 mg/dl (0-1.1); BILIRUBIN,TOTAL 0.5 mg/dl (0.2-1.3); CALCIUM 8.5 mg/dl (8.4-10.2); CREATININE 0.72 mg/dl (0.44-1.00); POTASSIUM 3.4 mmol/L (3.5-5.1); TOTAL PROTEIN 6.1 g/dl (6.1-8.1)
[2017-04-06] MEDS: CEFAZOLIN 1 GM/50 ML (PMX) 50 ML IVPB SCH ×2 (05:57→13:38)
[2017-04-06] MEDS: PANTOPRAZOLE (EC) 40 MG TAB PO SCH (06:00)
[2017-04-06] MEDS: LEVOTHYROXINE 50 MCG TAB PO SCH (06:00)
[2017-04-06 07:30] VITALS: BP 129/60; RESP 18
[2017-04-06 07:56] LABS: MAGNESIUM 1.3 mg/dl (1.7-2.5); PHOSPHORUS 4.4 mg/dl (2.5-4.9)
[2017-04-06] MEDS: SOD CHLORIDE 0.9% 1,000 ML IV SCH (08:01)
[2017-04-06] MEDS: FAMOTIDINE 20 MG TAB PO SCH ×2 (08:41→20:08)
[2017-04-06] MEDS: CHOLECALCIFEROL 1,000 UNIT TAB PO SCH (08:41)
[2017-04-06] MEDS: BETHANECHOL 25 MG TAB PO SCH ×3 (08:41→20:08)
[2017-04-06] MEDS: CHLORTHALIDONE 25 MG TAB PO SCH (08:42)
[2017-04-06] MEDS: OLOPATADINE 0.1% 5 ML OPH LEFT EYE PRN (11:20)
[2017-04-06] MEDS: INSULIN ASPART [NOVOLOG] 3 ML PEN SC SCH ×3 (12:00→23:33)
[2017-04-06] MEDS ORDERED: MAGNESIUM SULFATE 2 GM/50 ML 50 ML IVPB ONE (12:30)
[2017-04-06] MEDS ORDERED: POTASSIUM CHLORIDE 250 ML IVPB ONE (12:30)
--- NOTE | 2017-04-06 13:21 | PN ---
Date/Time of Note Date/Time of Note DATE: 04/06/17 TIME: 13:06 Assessment/Plan VTE Prophylaxis VTE Prophylaxis Intervention: SCD's Lines/Catheters [facility] Peripheral IV Urinary Cath still in place: Yes Reason Cath still needed: urinary retention Assessment/Plan Chief Complaint/Hosp Course 1. Urinary retention secondary to pelvic mass - s/p lap BSO 04/05/17. pending path -restart plavix as tolerated. - Patient has known about cyst in ovary since 12/2016 - CT abd/pelvis showed 12 cm L adnexal cystic mass that displaces adjacent colon as well as displaces the uterus to the right of midline 2. Anemia of chronic disease - FOBT negative - no acute bleeding appreciated - will continue monitoring 3. Hyponatremia - will continue monitoring - asymptomatic at this time 4. DM - Was on Metformin at home and will hold - ISS and accuchecks - A1c 6.8 5. HTN - stable - PRN Labetalol and Hydralazine to keep SBP <160 6. CAD s/p stent 4 years ago - Plavix on hold since 03/30, will restart as tolerated. 7. HLP - statin 8. Disposition - surgery yesterday, pending surgery recs, ok to eat when ok with surgery. Problems: Subjective 24 Hr Interval Summary Free Text/Dictation patient laying in bed sleeping. Exam/Review of Systems Vital Signs Vitals Vital Signs Date Time Temp Pulse Resp B/P Pulse Ox O2 Delivery O2 Flow Rate FiO2 04/06/17 07:30 99.2 79 18 129/60 96 04/05/17 21:30 Nasal Cannula 04/05/17 20:40 3.0 Intake and Output 04/05/17 04/05/17 04/06/17 15:00 23:00 07:00 Intake Total 1000 ml 3350 ml 500 ml Output Total 2000 ml 1750 ml 800 ml Balance -1000 ml 1600 ml -300 ml Exam Constitutional: alert, oriented, well developed Respiratory: clear to auscultation, normal air movement, No crackles/rales, No diminished breath sounds, No wheezing Cardiovascular: regular rate and rhythm, systolic murmur Gastrointestinal: multiple laproscopic surgical sites, CDI. Extremities: normal pulses, mild swelling of right ankle but no ecchymosis, erythema, or disfigurement appreciated Skin: nl turgor Results Result Diagram: 04/06/17 0457 04/06/17 0457 Results 24 hrs Laboratory Tests Test 04/05/17 14:51 04/05/17 19:00 04/05/17 20:01 04/06/17 04:57 Bedside Glucose 110 122 White Blood Count 7.9 7.7 Red Blood Count 3.33 L 3.37 L Hemoglobin 9.4 L 9.5 L Hematocrit 28.6 L 28.9 L Mean Corpuscular Volume 85.9 85.8 Mean Corpuscular Hemoglobin 28.2 L 28.2 L Mean Corpuscular Hemoglobin Concent 32.9 32.9 Red Cell Distribution Width 14.0 13.9 Platelet Count 210 221 Mean Platelet Volume 9.3 9.5 Neutrophils % 70.9 75.1 Lymphocytes % 19.5 16.3 Monocytes % 6.4 5.9 Eosinophils % 2.4 1.9 Basophils % 0.4 0.4 Nucleated Red Blood Cells % 0.0 0.0 Neutrophils # 5.6 5.8 Lymphocytes # 1.6 1.3 Monocytes # 0.5 0.5 Eosinophils # 0.2 0.2 Basophils # 0.0 0.0 Nucleated Red Blood Cells # 0.0 0.0 Sodium Level 133 L 136 Potassium Level 3.4 L 3.4 L Chloride Level 101 98 Carbon Dioxide Level 25 27 Anion Gap 10 14 Blood Urea Nitrogen 11 9 Creatinine 0.74 0.72 Glucose Level 122 100 Calcium Level 8.8 8.5 Prothrombin Time 14.3 H Prothrombin Time Ratio 1.1 INR International Normalized Ratio 1.11 Phosphorus Level 4.4 Magnesium Level 1.3 L Total Bilirubin 0.5 Direct Bilirubin 0.00 Indirect Bilirubin 0.5 Aspartate Amino Transf (AST/SGOT) 22 Alanine Aminotransferase (ALT/SGPT) 33 Alkaline Phosphatase 68 Total Protein 6.1 Albumin 3.1 L Globulin 3.00 Albumin/Globulin Ratio 1.03 Test 04/06/17 12:08 Bedside Glucose 120 Medications Medications Current Medications Atorvastatin Calcium (Lipitor) 20 mg HS PO Last administered on 04/04/17 22:18 ; Admin Dose 20 MG; Start 03/29/17 at 21:00 Bethanechol Chloride (Urecholine) 25 mg TID PO Last administered on 04/06/17 08:41; Admin Dose 25 MG; Start 03/29/17 at 15:00 Carvedilol (Coreg) 12.5 mg BID PO Last administered on 04/06/17 08:42; Admin Dose 12.5 MG; Start 03/29/17 at 14:00 Chlorthalidone (Hygroton) 25 mg DAILY PO Last administered on 04/06/17 08:42; Admin Dose 25 MG; Start 03/30/17 at 09:00 Cholecalciferol (Vitamin D) 5,000 unit DAILY PO Last administered on 04/06/17 08:41; Admin Dose 5,000 UNIT; Start 03/30/17 at 09:00 Clopidogrel Bisulfate (plaVIX) 75 mg DAILY PO Last administered on 03/30/17 08 :20; Admin Dose 75 MG; Start 03/30/17 at 09:00; Status Future Hold Levothyroxine Sodium (Synthroid) 50 mcg DAILY@06 PO Last administered on 06:05; Admin Dose 50 MCG; Start 03/30/17 at 06:00 Tamsulosin HCl (Flomax) 0.4 mg HS PO Last administered on 04/04/17 22:18; Admin Dose 0.4 MG; Start 03/29/17 at 21:00 Pantoprazole (Protonix Tab) 40 mg DAILY@06 PO Last administered on 04/05/17 06 :05; Admin Dose 40 MG; Start 03/30/17 at 06:00 Ondansetron HCl (Zofran Inj) 4 mg Q6H PRN IV NAUSEA AND/OR VOMITING Last administered on 04/06/17 08:54; Admin Dose 4 MG; Start 03/29/17 at 13:30 Acetaminophen (Tylenol Tab) 650 mg Q6H PRN PO PAIN LEVEL 1-3 OR FEVER Last administered on 04/04/17 23:28; Admin Dose 650 MG; Start 03/29/17 at 13:30 Docusate Sodium (Colace) 100 mg Q12H PRN PO CONSTIPATION; Start 03/29/17 at 14: 00 Diagnostic Test (Pha) (Accu-Chek) 1 ea 02 XX ; Start 03/30/17 at 02:00 Miscellaneous Information 1 ea NOTE XX ; Start 03/29/17 at 14:00 Glucose (Glutose) 15 gm Q15M PRN PO DECREASED GLUCOSE; Start 03/29/17 at 14:00 Glucose (Glutose) 22.5 gm Q15M PRN PO DECREASED GLUCOSE; Start 03/29/17 at 14: 00 Dextrose (D50w Syringe) 25 ml Q15M PRN IV DECREASED GLUCOSE; Start 03/29/17 at 14:00 Dextrose (D50w Syringe) 50 ml Q15M PRN IV DECREASED GLUCOSE; Start 03/29/17 at 14:00 Glucagon (Glucagen) 1 mg Q15M PRN IM DECREASED GLUCOSE; Start 03/29/17 at 14:00 Glucose (Glutose) 15 gm Q15M PRN BUCCAL DECREASED GLUCOSE; Start 03/29/17 at 14 :00 Hydralazine HCl (Apresoline) 10 mg Q4H PRN IV ELEVATED BLOOD PRESSURE Last administered on 04/04/17 17:26; Admin Dose 10 MG; Start 03/29/17 at 15:00 Olopatadine HCl 1 drop 1 drop BID PRN LEFT EYE ITCHING Last administered on 11:20; Admin Dose 1 DROP; Start 04/04/17 at 23:30 Metronidazole (Flagyl 500 Mg (Pmx)) 100 ml @ 100 mls/hr Q8H IVPB Last administered on 04/06/17 11:16; Admin Dose 100 MLS/HR; Start 04/05/17 at 19:30 ; Stop 04/06/17 at 19:29 Morphine Sulfate (morphine) 2 mg Q2H PRN IV PAIN LEVEL 6-10 Last administered on 04/06/17 02:57; Admin Dose 2 MG; Start 04/05/17 at 19:30 Acetaminophen/ Hydrocodone Bitart ([place] (5/325)) 1 tab Q6H PRN PO PAIN LEVEL 6 -10; Start 04/05/17 at 19:30 Ketorolac Tromethamine (Toradol) 15 mg Q6H PRN IV PAIN; Start 04/05/17 at 19:30 ; Stop 04/08/17 at 19:29 Diphenhydramine HCl (Benadryl) 25 mg Q6H PRN IV ITCHING; Start 04/05/17 at 19: 30 Ondansetron HCl (Zofran Inj) 4 mg Q6H PRN IV NAUSEA AND/OR VOMITING; Start at 19:30 Famotidine 20 mg 20 mg BID PO Last administered on 04/06/17 08:41; Admin Dose 20 MG; Start 04/05/17 at 21:00 Cefazolin Sodium (Ancef 1 Gm/50 ml (Pmx)) 50 ml @ 100 mls/hr Q8 IVPB Last administered on 04/06/17 05:57; Admin Dose 100 MLS/HR; Start 04/05/17 at 22:00 ; Stop 04/06/17 at 14:29 Insulin Aspart NOVOLOG *MILD* ALGORI... Q6 SC ; Start 04/06/17 at 12:00 Potassium Chloride 250 ml @ 62.5 mls/hr ONCE ONCE IVPB ; Start 04/06/17 at 12: 30; Stop 04/06/17 at 16:29 Magnesium Sulfate 50 ml @ 25 mls/hr ONCE ONCE IVPB ; Start 04/06/17 at 12:30; Stop 04/06/17 at 14:29 Dextrose/Sodium Chloride (D5-1/2ns) 1,000 ml @ 120 mls/hr Q8H20M IV ; Start at 13:00 HENRY WILLSON Apr 06, 2017 13:16
[2017-04-06 14:14] VITALS: BP 154/66; RESP 18
[2017-04-06] MEDS: DEXTROSE 5%-0.45% NACL 1,000 ML IV SCH ×2 (15:14→21:20)
[2017-04-06] MEDS: hydrALAzine 20 MG INJ IV PRN (20:06)
[2017-04-06] MEDS: TAMSULOSIN (SR) 0.4 MG CAP PO SCH (20:08)
[2017-04-06] MEDS: ATORVASTATIN 20 MG TAB PO SCH (20:08)
[2017-04-06 20:22] VITALS: BP 180/79; RESP 20
[2017-04-06 22:10] VITALS: BP 143/72
--- NOTE | 2017-04-06 23:01 | PN ---
Date/Time of Note Date/Time of Note DATE: 04/06/17 TIME: 22:59 Assessment/Plan VTE Prophylaxis VTE Prophylaxis Intervention: SCD's Lines/Catheters IV Catheter Type (from Nrs): Peripheral IV Urinary Cath still in place: Yes Reason Cath still needed: urinary retention Assessment/Plan Chief Complaint/Hosp Course Pelvic mass with urinary obstruction Problems: Assessment/Plan A- doing well P- adv diet and OOB Subjective 24 Hr Interval Summary Free Text/Dictation Relatively comfortable, some flatus. Exam/Review of Systems Vital Signs Vitals Vital Signs Date Time Temp Pulse Resp B/P Pulse Ox O2 Delivery O2 Flow Rate FiO2 04/06/17 21:34 Nasal Cannula 2.0 04/06/17 20:22 98.4 82 20 180/79 94 Intake and Output 04/05/17 04/05/17 04/06/17 15:00 23:00 07:00 Intake Total 1000 ml 3350 ml 500 ml Output Total 2000 ml 1750 ml 800 ml Balance -1000 ml 1600 ml -300 ml Exam Resp- clear CVS- NSR Abd- slight tender, clean Ext- NT Results Result Diagram: 04/06/17 0457 04/06/17 0457 Results 24 hrs Laboratory Tests Test 04/06/17 04:57 04/06/17 12:08 04/06/17 17:06 White Blood Count 7.7 Red Blood Count 3.37 L Hemoglobin 9.5 L Hematocrit 28.9 L Mean Corpuscular Volume 85.8 Mean Corpuscular Hemoglobin 28.2 L Mean Corpuscular Hemoglobin Concent 32.9 Red Cell Distribution Width 13.9 Platelet Count 221 Mean Platelet Volume 9.5 Neutrophils % 75.1 Lymphocytes % 16.3 Monocytes % 5.9 Eosinophils % 1.9 Basophils % 0.4 Nucleated Red Blood Cells % 0.0 Neutrophils # 5.8 Lymphocytes # 1.3 Monocytes # 0.5 Eosinophils # 0.2 Basophils # 0.0 Nucleated Red Blood Cells # 0.0 Prothrombin Time 14.3 H Prothrombin Time Ratio 1.1 INR International Normalized Ratio 1.11 Sodium Level 136 Potassium Level 3.4 L Chloride Level 98 Carbon Dioxide Level 27 Anion Gap 14 Blood Urea Nitrogen 9 Creatinine 0.72 Glucose Level 100 Calcium Level 8.5 Phosphorus Level 4.4 Magnesium Level 1.3 L Total Bilirubin 0.5 Direct Bilirubin 0.00 Indirect Bilirubin 0.5 Aspartate Amino Transf (AST/SGOT) 22 Alanine Aminotransferase (ALT/SGPT) 33 Alkaline Phosphatase 68 Total Protein 6.1 Albumin 3.1 L Globulin 3.00 Albumin/Globulin Ratio 1.03 Bedside Glucose 120 112 Medications Medications Current Medications Atorvastatin Calcium (Lipitor) 20 mg HS PO Last administered on 04/04/17 22:18 ; Admin Dose 20 MG; Start 03/29/17 at 21:00 Bethanechol Chloride (Urecholine) 25 mg TID PO Last administered on 04/06/17 13:39; Admin Dose 25 MG; Start 03/29/17 at 15:00 Carvedilol (Coreg) 12.5 mg BID PO Last administered on 04/06/17 08:42; Admin Dose 12.5 MG; Start 03/29/17 at 14:00 Chlorthalidone (Hygroton) 25 mg DAILY PO Last administered on 04/06/17 08:42; Admin Dose 25 MG; Start 03/30/17 at 09:00 Cholecalciferol (Vitamin D) 5,000 unit DAILY PO Last administered on 04/06/17 08:41; Admin Dose 5,000 UNIT; Start 03/30/17 at 09:00 Levothyroxine Sodium (Synthroid) 50 mcg DAILY@06 PO Last administered on 06:05; Admin Dose 50 MCG; Start 03/30/17 at 06:00 Tamsulosin HCl (Flomax) 0.4 mg HS PO Last administered on 04/04/17 22:18; Admin Dose 0.4 MG; Start 03/29/17 at 21:00 Pantoprazole (Protonix Tab) 40 mg DAILY@06 PO Last administered on 04/05/17 06 :05; Admin Dose 40 MG; Start 03/30/17 at 06:00 Ondansetron HCl (Zofran Inj) 4 mg Q6H PRN IV NAUSEA AND/OR VOMITING Last administered on 04/06/17 08:54; Admin Dose 4 MG; Start 03/29/17 at 13:30 Acetaminophen (Tylenol Tab) 650 mg Q6H PRN PO PAIN LEVEL 1-3 OR FEVER Last administered on 04/04/17 23:28; Admin Dose 650 MG; Start 03/29/17 at 13:30 Docusate Sodium (Colace) 100 mg Q12H PRN PO CONSTIPATION; Start 03/29/17 at 14: 00 Diagnostic Test (Pha) (Accu-Chek) 1 ea 02 XX ; Start 03/30/17 at 02:00 Miscellaneous Information 1 ea NOTE XX ; Start 03/29/17 at 14:00 Glucose (Glutose) 15 gm Q15M PRN PO DECREASED GLUCOSE; Start 03/29/17 at 14:00 Glucose (Glutose) 22.5 gm Q15M PRN PO DECREASED GLUCOSE; Start 03/29/17 at 14: 00 Dextrose (D50w Syringe) 25 ml Q15M PRN IV DECREASED GLUCOSE; Start 03/29/17 at 14:00 Dextrose (D50w Syringe) 50 ml Q15M PRN IV DECREASED GLUCOSE; Start 03/29/17 at 14:00 Glucagon (Glucagen) 1 mg Q15M PRN IM DECREASED GLUCOSE; Start 03/29/17 at 14:00 Glucose (Glutose) 15 gm Q15M PRN BUCCAL DECREASED GLUCOSE; Start 03/29/17 at 14 :00 Hydralazine HCl (Apresoline) 10 mg Q4H PRN IV ELEVATED BLOOD PRESSURE Last administered on 04/06/17 20:06; Admin Dose 10 MG; Start 03/29/17 at 15:00 Olopatadine HCl (Patanol 0.1% Oph) 1 drop BID PRN LEFT EYE ITCHING Last administered on 04/06/17 11:20; Admin Dose 1 DROP; Start 04/04/17 at 23:30 Morphine Sulfate (morphine) 2 mg Q2H PRN IV PAIN LEVEL 6-10 Last administered on 04/06/17 18:07; Admin Dose 2 MG; Start 04/05/17 at 19:30 Acetaminophen/ Hydrocodone Bitart ([place] (5/325)) 1 tab Q6H PRN PO PAIN LEVEL 6 -10; Start 04/05/17 at 19:30 Ketorolac Tromethamine (Toradol) 15 mg Q6H PRN IV PAIN; Start 04/05/17 at 19:30 ; Stop 04/08/17 at 19:29 Diphenhydramine HCl (Benadryl) 25 mg Q6H PRN IV ITCHING; Start 04/05/17 at 19: 30 Ondansetron HCl (Zofran Inj) 4 mg Q6H PRN IV NAUSEA AND/OR VOMITING; Start at 19:30 Famotidine (Pepcid) 20 mg BID PO Last administered on 04/06/17 08:41; Admin Dose 20 MG; Start 04/05/17 at 21:00 Insulin Aspart NOVOLOG *MILD* ALGORI... Q6 SC ; Start 04/06/17 at 12:00 Dextrose/Sodium Chloride (D5-1/2ns) 1,000 ml @ 120 mls/hr Q8H20M IV Last administered on 04/06/17 15:14; Admin Dose 120 MLS/HR; Start 04/06/17 at 13:00 Clopidogrel Bisulfate (plaVIX) 75 mg DAILY PO ; Start 04/07/17 at 09:00 KOKI REAGAN MD Apr 06, 2017 23:01
[2017-04-07] MEDS: ACCU-CHEK XX SCH (02:00)
[2017-04-07 02:36] VITALS: BP 117/58; RESP 20
[2017-04-07] MEDS: DEXTROSE 5%-0.45% NACL 1,000 ML IV SCH ×2 (05:05→08:58)
[2017-04-07] MEDS: INSULIN ASPART [NOVOLOG] 3 ML PEN SC SCH ×3 (05:35→18:40)
[2017-04-07] MEDS: LEVOTHYROXINE 50 MCG TAB PO SCH (05:36)
[2017-04-07] MEDS: PANTOPRAZOLE (EC) 40 MG TAB PO SCH (05:36)
[2017-04-07 05:45] LABS: BASOPHILS % 0.3 % (0.0-2.0); EOSINOPHILS # 0.2 10^3/ul (0.0-0.5); EOSINOPHILS % 2.8 % (0.0-7.0); HEMATOCRIT 27.1 % (37.0-47.0); LYMPHOCYTES # 1.6 10^3/ul (0.8-2.9); LYMPHOCYTES % 22.3 % (15.0-51.0); MEAN CORPUSCULAR HEMOGLOBIN 28.7 pg (29.0-33.0); MEAN CORPUSCULAR HGB CONC 33.2 g/dl (32.0-37.0); MEAN CORPUSCULAR VOLUME 86.3 fl (82.0-101.0); MEAN PLATELET VOLUME 9.6 fl (7.4-10.4); MONOCYTE # 0.6 10^3/ul (0.3-0.9); NEUTROPHIL # 4.6 10^3/ul (1.6-7.5); NEUTROPHILS % 65.3 % (39.0-77.0); PLATELET COUNT 201 10^3/UL (140-415); RED BLOOD COUNT 3.14 10^6/ul (4.20-5.40); RED CELL DISTRIBUTION WIDTH 13.9 % (11.5-14.5); WHITE BLOOD COUNT 7.1 10^3/ul (4.8-10.8)
[2017-04-07 07:12] LABS: CALCIUM 8.2 mg/dl (8.4-10.2); CREATININE 0.71 mg/dl (0.44-1.00); MAGNESIUM 1.6 mg/dl (1.7-2.5); PHOSPHORUS 3.3 mg/dl (2.5-4.9); POTASSIUM 3.3 mmol/L (3.5-5.1)
[2017-04-07 07:38] VITALS: BP 136/65; RESP 72
[2017-04-07] MEDS: FAMOTIDINE 20 MG TAB PO SCH ×2 (09:46→21:00)
[2017-04-07] MEDS: CHOLECALCIFEROL 1,000 UNIT TAB PO SCH (09:46)
[2017-04-07] MEDS: BETHANECHOL 25 MG TAB PO SCH ×3 (09:47→21:02)
[2017-04-07] MEDS: CLOPIDOGREL 75 MG TAB PO SCH (09:47)
[2017-04-07] MEDS: CHLORTHALIDONE 25 MG TAB PO SCH (09:48)
[2017-04-07] MEDS: KETOROLAC 15 MG INJ IV PRN ×2 (09:57→18:33)
[2017-04-07 14:00] VITALS: BP 132/62; RESP 18
--- NOTE | 2017-04-07 16:38 | PN ---
Date/Time of Note Date/Time of Note DATE: 04/07/17 TIME: 16:36 Assessment/Plan VTE Prophylaxis VTE Prophylaxis Intervention: SCD's Lines/Catheters IV Catheter Type (from Nrs): Peripheral IV Urinary Cath still in place: Yes Reason Cath still needed: urinary retention Assessment/Plan Chief Complaint/Hosp Course 1. Urinary retention secondary to pelvic mass - s/p lap BSO 04/05/17. pending path -restart plavix as tolerated. - Patient has known about cyst in ovary since 12/2016 - CT abd/pelvis showed 12 cm L adnexal cystic mass that displaces adjacent colon as well as displaces the uterus to the right of midline 2. Anemia of chronic disease - FOBT negative - no acute bleeding appreciated - will continue monitoring 3. Hyponatremia - will continue monitoring - asymptomatic at this time 4. DM - Was on Metformin at home and will hold - ISS and accuchecks - A1c 6.8 5. HTN - stable - PRN Labetalol and Hydralazine to keep SBP <160 6. CAD s/p stent 4 years ago - Plavix restarted - patient not previously on asa 81mg, unknown reason per patient, will start asa 81 for hx of cad with stent. 7. HLP - statin 8. Disposition - full liquids today. patient doing well. ordered PT today Problems: Subjective 24 Hr Interval Summary Free Text/Dictation no acute complaints Exam/Review of Systems Vital Signs Vitals Vital Signs Date Time Temp Pulse Resp B/P Pulse Ox O2 Delivery O2 Flow Rate FiO2 04/07/17 14:00 98.2 68 18 132/62 91 04/06/17 21:34 Nasal Cannula 2.0 Intake and Output 04/06/17 04/06/17 04/07/17 15:00 23:00 07:00 Intake Total 850 ml 170 ml 1360 ml Output Total 1300 ml 1200 ml Balance 850 ml -1130 ml 160 ml Exam Constitutional: alert, oriented, well developed Respiratory: clear to auscultation, normal air movement, No crackles/rales, No diminished breath sounds, No wheezing Cardiovascular: regular rate and rhythm, systolic murmur Gastrointestinal: multiple laproscopic surgical sites, CDI. Extremities: normal pulses, mild swelling of right ankle but no ecchymosis, erythema, or disfigurement appreciated Skin: nl turgor Results Result Diagram: 04/07/17 0513 04/07/17 0513 Results 24 hrs Laboratory Tests Test 04/06/17 17:06 04/06/17 23:26 04/06/17 23:27 04/07/17 05:13 Bedside Glucose 112 154 147 White Blood Count 7.1 Red Blood Count 3.14 L Hemoglobin 9.0 L Hematocrit 27.1 L Mean Corpuscular Volume 86.3 Mean Corpuscular Hemoglobin 28.7 L Mean Corpuscular Hemoglobin Concent 33.2 Red Cell Distribution Width 13.9 Platelet Count 201 Mean Platelet Volume 9.6 Neutrophils % 65.3 Lymphocytes % 22.3 Monocytes % 9.0 Eosinophils % 2.8 Basophils % 0.3 Nucleated Red Blood Cells % 0.0 Neutrophils # 4.6 Lymphocytes # 1.6 Monocytes # 0.6 Eosinophils # 0.2 Basophils # 0.0 Nucleated Red Blood Cells # 0.0 Sodium Level 129 L Potassium Level 3.3 L Chloride Level 95 L Carbon Dioxide Level 29 Anion Gap 8 Blood Urea Nitrogen 7 Creatinine 0.71 Glucose Level 150 Calcium Level 8.2 L Phosphorus Level 3.3 Magnesium Level 1.6 L Test 04/07/17 05:34 04/07/17 12:13 Bedside Glucose 169 168 Medications Medications Current Medications Atorvastatin Calcium (Lipitor) 20 mg HS PO Last administered on 04/04/17 22:18 ; Admin Dose 20 MG; Start 03/29/17 at 21:00 Bethanechol Chloride (Urecholine) 25 mg TID PO Last administered on 04/07/17 14:33; Admin Dose 25 MG; Start 03/29/17 at 15:00 Carvedilol (Coreg) 12.5 mg BID PO Last administered on 04/07/17 09:46; Admin Dose 12.5 MG; Start 03/29/17 at 14:00 Chlorthalidone (Hygroton) 25 mg DAILY PO Last administered on 04/07/17 09:48; Admin Dose 25 MG; Start 03/30/17 at 09:00 Cholecalciferol (Vitamin D) 5,000 unit DAILY PO Last administered on 04/07/17 09:46; Admin Dose 5,000 UNIT; Start 03/30/17 at 09:00 Levothyroxine Sodium (Synthroid) 50 mcg DAILY@06 PO Last administered on 05:36; Admin Dose 50 MCG; Start 03/30/17 at 06:00 Tamsulosin HCl (Flomax) 0.4 mg HS PO Last administered on 04/04/17 22:18; Admin Dose 0.4 MG; Start 03/29/17 at 21:00 Pantoprazole (Protonix Tab) 40 mg DAILY@06 PO Last administered on 04/07/17 05 :36; Admin Dose 40 MG; Start 03/30/17 at 06:00 Ondansetron HCl (Zofran Inj) 4 mg Q6H PRN IV NAUSEA AND/OR VOMITING Last administered on 04/06/17 08:54; Admin Dose 4 MG; Start 03/29/17 at 13:30 Acetaminophen (Tylenol Tab) 650 mg Q6H PRN PO PAIN LEVEL 1-3 OR FEVER Last administered on 04/04/17 23:28; Admin Dose 650 MG; Start 03/29/17 at 13:30 Docusate Sodium (Colace) 100 mg Q12H PRN PO CONSTIPATION; Start 03/29/17 at 14: 00 Diagnostic Test (Pha) (Accu-Chek) 1 ea 02 XX ; Start 03/30/17 at 02:00 Miscellaneous Information 1 ea NOTE XX ; Start 03/29/17 at 14:00 Glucose (Glutose) 15 gm Q15M PRN PO DECREASED GLUCOSE; Start 03/29/17 at 14:00 Glucose (Glutose) 22.5 gm Q15M PRN PO DECREASED GLUCOSE; Start 03/29/17 at 14: 00 Dextrose (D50w Syringe) 25 ml Q15M PRN IV DECREASED GLUCOSE; Start 03/29/17 at 14:00 Dextrose (D50w Syringe) 50 ml Q15M PRN IV DECREASED GLUCOSE; Start 03/29/17 at 14:00 Glucagon (Glucagen) 1 mg Q15M PRN IM DECREASED GLUCOSE; Start 03/29/17 at 14:00 Glucose (Glutose) 15 gm Q15M PRN BUCCAL DECREASED GLUCOSE; Start 03/29/17 at 14 :00 Hydralazine HCl (Apresoline) 10 mg Q4H PRN IV ELEVATED BLOOD PRESSURE Last administered on 04/06/17 20:06; Admin Dose 10 MG; Start 03/29/17 at 15:00 Olopatadine HCl (Patanol 0.1% Oph) 1 drop BID PRN LEFT EYE ITCHING Last administered on 04/06/17 11:20; Admin Dose 1 DROP; Start 04/04/17 at 23:30 Morphine Sulfate (morphine) 2 mg Q2H PRN IV PAIN LEVEL 6-10 Last administered on 04/06/17 18:07; Admin Dose 2 MG; Start 04/05/17 at 19:30 Acetaminophen/ Hydrocodone Bitart ([place] (5/325)) 1 tab Q6H PRN PO PAIN LEVEL 6 -10; Start 04/05/17 at 19:30 Ketorolac Tromethamine (Toradol) 15 mg Q6H PRN IV PAIN Last administered on 09:57; Admin Dose 15 MG; Start 04/05/17 at 19:30; Stop 04/08/17 at 19:29 Diphenhydramine HCl (Benadryl) 25 mg Q6H PRN IV ITCHING; Start 04/05/17 at 19: 30 Ondansetron HCl (Zofran Inj) 4 mg Q6H PRN IV NAUSEA AND/OR VOMITING; Start at 19:30 Famotidine (Pepcid) 20 mg BID PO Last administered on 04/07/17 09:46; Admin Dose 20 MG; Start 04/05/17 at 21:00 Insulin Aspart NOVOLOG *MILD* ALGORI... Q6 SC Last administered on 04/07/17 12 :25; Admin Dose 1 UNIT; Start 04/06/17 at 12:00 Dextrose/Sodium Chloride (D5-1/2ns) 1,000 ml @ 80 mls/hr [id number] IV Last administered on 04/07/17 05:05; Admin Dose 80 MLS/HR; Start 04/06/17 at 13:00 Clopidogrel Bisulfate (plaVIX) 75 mg DAILY PO Last administered on 04/07/17 09 :47; Admin Dose 75 MG; Start 04/07/17 at 09:00 HENRY WILLSON Apr 07, 2017 16:38
[2017-04-07] MEDS: ASPIRIN 81 MG TAB PO SCH (18:33)
[2017-04-07 20:00] VITALS: BP 153/65; RESP 20
--- NOTE | 2017-04-07 20:41 | PN ---
Date/Time of Note Date/Time of Note DATE: 04/07/17 TIME: 20:38 Assessment/Plan VTE Prophylaxis VTE Prophylaxis Intervention: heparin, LMWH, SCD's Lines/Catheters IV Catheter Type (from Nrsg): Peripheral IV Urinary Cath still in place: Yes Reason Cath still needed: urinary retention Assessment/Plan Chief Complaint/Hosp Course Pelvic mass with urinary obstruction Problems: Assessment/Plan A- improved P- will adv diet and mobilize Subjective 24 Hr Interval Summary Free Text/Dictation + flatus but minimally OOB. Minimally discomfort. Exam/Review of Systems Vital Signs Vitals Vital Signs Date Time Temp Pulse Resp B/P Pulse Ox O2 Delivery O2 Flow Rate FiO2 04/07/17 14:00 98.2 68 18 132/62 91 04/07/17 08:10 Nasal Cannula 2.0 Intake and Output 04/06/17 04/06/17 04/07/17 15:00 23:00 07:00 Intake Total 850 ml 170 ml 1360 ml Output Total 1300 ml 1200 ml Balance 850 ml -1130 ml 160 ml Exam Resp- clear CVS- NSR Abd- soft NT and clean Ext Nt minimal edema Results Result Diagram: 04/07/17 0513 04/07/17 0513 Results 24 hrs Laboratory Tests Test 04/06/17 23:26 04/06/17 23:27 04/07/17 05:13 04/07/17 05:34 Bedside Glucose 154 147 169 White Blood Count 7.1 Red Blood Count 3.14 L Hemoglobin 9.0 L Hematocrit 27.1 L Mean Corpuscular Volume 86.3 Mean Corpuscular Hemoglobin 28.7 L Mean Corpuscular Hemoglobin Concent 33.2 Red Cell Distribution Width 13.9 Platelet Count 201 Mean Platelet Volume 9.6 Neutrophils % 65.3 Lymphocytes % 22.3 Monocytes % 9.0 Eosinophils % 2.8 Basophils % 0.3 Nucleated Red Blood Cells % 0.0 Neutrophils # 4.6 Lymphocytes # 1.6 Monocytes # 0.6 Eosinophils # 0.2 Basophils # 0.0 Nucleated Red Blood Cells # 0.0 Sodium Level 129 L Potassium Level 3.3 L Chloride Level 95 L Carbon Dioxide Level 29 Anion Gap 8 Blood Urea Nitrogen 7 Creatinine 0.71 Glucose Level 150 Calcium Level 8.2 L Phosphorus Level 3.3 Magnesium Level 1.6 L Test 04/07/17 12:13 04/07/17 18:35 Bedside Glucose 168 176 Medications Medications Current Medications Atorvastatin Calcium (Lipitor) 20 mg HS PO Last administered on 04/04/17 22:18 ; Admin Dose 20 MG; Start 03/29/17 at 21:00 Bethanechol Chloride (Urecholine) 25 mg TID PO Last administered on 04/07/17 14:33; Admin Dose 25 MG; Start 03/29/17 at 15:00 Carvedilol (Coreg) 12.5 mg BID PO Last administered on 04/07/17 09:46; Admin Dose 12.5 MG; Start 03/29/17 at 14:00 Chlorthalidone (Hygroton) 25 mg DAILY PO Last administered on 04/07/17 09:48; Admin Dose 25 MG; Start 03/30/17 at 09:00 Cholecalciferol (Vitamin D) 5,000 unit DAILY PO Last administered on 04/07/17 09:46; Admin Dose 5,000 UNIT; Start 03/30/17 at 09:00 Levothyroxine Sodium (Synthroid) 50 mcg DAILY@06 PO Last administered on 05:36; Admin Dose 50 MCG; Start 03/30/17 at 06:00 Tamsulosin HCl (Flomax) 0.4 mg HS PO Last administered on 04/04/17 22:18; Admin Dose 0.4 MG; Start 03/29/17 at 21:00 Pantoprazole (Protonix Tab) 40 mg DAILY@06 PO Last administered on 04/07/17 05 :36; Admin Dose 40 MG; Start 03/30/17 at 06:00 Ondansetron HCl (Zofran Inj) 4 mg Q6H PRN IV NAUSEA AND/OR VOMITING Last administered on 04/06/17 08:54; Admin Dose 4 MG; Start 03/29/17 at 13:30 Acetaminophen (Tylenol Tab) 650 mg Q6H PRN PO PAIN LEVEL 1-3 OR FEVER Last administered on 04/04/17 23:28; Admin Dose 650 MG; Start 03/29/17 at 13:30 Docusate Sodium (Colace) 100 mg Q12H PRN PO CONSTIPATION; Start 03/29/17 at 14: 00 Diagnostic Test (Pha) (Accu-Chek) 1 ea 02 XX ; Start 03/30/17 at 02:00 Miscellaneous Information 1 ea NOTE XX ; Start 03/29/17 at 14:00 Glucose (Glutose) 15 gm Q15M PRN PO DECREASED GLUCOSE; Start 03/29/17 at 14:00 Glucose (Glutose) 22.5 gm Q15M PRN PO DECREASED GLUCOSE; Start 03/29/17 at 14: 00 Dextrose (D50w Syringe) 25 ml Q15M PRN IV DECREASED GLUCOSE; Start 03/29/17 at 14:00 Dextrose (D50w Syringe) 50 ml Q15M PRN IV DECREASED GLUCOSE; Start 03/29/17 at 14:00 Glucagon (Glucagen) 1 mg Q15M PRN IM DECREASED GLUCOSE; Start 03/29/17 at 14:00 Glucose (Glutose) 15 gm Q15M PRN BUCCAL DECREASED GLUCOSE; Start 03/29/17 at 14 :00 Hydralazine HCl (Apresoline) 10 mg Q4H PRN IV ELEVATED BLOOD PRESSURE Last administered on 04/06/17 20:06; Admin Dose 10 MG; Start 03/29/17 at 15:00 Olopatadine HCl (Patanol 0.1% Oph) 1 drop BID PRN LEFT EYE ITCHING Last administered on 04/06/17 11:20; Admin Dose 1 DROP; Start 04/04/17 at 23:30 Morphine Sulfate (morphine) 2 mg Q2H PRN IV PAIN LEVEL 6-10 Last administered on 04/06/17 18:07; Admin Dose 2 MG; Start 04/05/17 at 19:30 Acetaminophen/ Hydrocodone Bitart ([place] (5/325)) 1 tab Q6H PRN PO PAIN LEVEL 6 -10; Start 04/05/17 at 19:30 Ketorolac Tromethamine (Toradol) 15 mg Q6H PRN IV PAIN Last administered on 18:33; Admin Dose 15 MG; Start 04/05/17 at 19:30; Stop 04/08/17 at 19:29 Diphenhydramine HCl (Benadryl) 25 mg Q6H PRN IV ITCHING; Start 04/05/17 at 19: 30 Ondansetron HCl (Zofran Inj) 4 mg Q6H PRN IV NAUSEA AND/OR VOMITING; Start at 19:30 Famotidine (Pepcid) 20 mg BID PO Last administered on 04/07/17 09:46; Admin Dose 20 MG; Start 04/05/17 at 21:00 Insulin Aspart (Novolog Insulin Pen) NOVOLOG *MILD* ALGORI... Q6 SC Last administered on 04/07/17 18:40; Admin Dose 1 UNIT; Start 04/06/17 at 12:00 Clopidogrel Bisulfate (plaVIX) 75 mg DAILY PO Last administered on 04/07/17 09 :47; Admin Dose 75 MG; Start 04/07/17 at 09:00 Aspirin (Aspirin) 81 mg DAILY PO Last administered on 04/07/17 18:33; Admin Dose 81 MG; Start 04/07/17 at 17:00 KOKI REAGAN MD Apr 07, 2017 20:41
[2017-04-07 20:55] VITALS: BP 176/78; PULSE 67
[2017-04-07] MEDS: ATORVASTATIN 20 MG TAB PO SCH (21:00)
[2017-04-07] MEDS: TAMSULOSIN (SR) 0.4 MG CAP PO SCH (21:00)
[2017-04-08 02:00] VITALS: BP 155/65; RESP 19
[2017-04-08] MEDS: ACCU-CHEK XX SCH (02:00)
[2017-04-08] MEDS: KETOROLAC 15 MG INJ IV PRN ×2 (02:08→13:54)
[2017-04-08] MEDS ORDERED: GUAIFENESIN/CODEINE 5ML CUP PO PRN (02:30)
[2017-04-08] MEDS: LEVOTHYROXINE 50 MCG TAB PO SCH (05:34)
[2017-04-08] MEDS: PANTOPRAZOLE (EC) 40 MG TAB PO SCH (05:34)
[2017-04-08] MEDS: INSULIN ASPART [NOVOLOG] 3 ML PEN SC SCH ×3 (05:35→12:00)
[2017-04-08 06:00] LABS: BASOPHILS % 0.6 % (0.0-2.0); EOSINOPHILS # 0.4 10^3/ul (0.0-0.5); EOSINOPHILS % 5.2 % (0.0-7.0); HEMATOCRIT 24.3 % (37.0-47.0); HEMOGLOBIN 8.2 g/dl (12.0-16.0); LYMPHOCYTES # 1.6 10^3/ul (0.8-2.9); LYMPHOCYTES % 23.4 % (15.0-51.0); MEAN CORPUSCULAR HEMOGLOBIN 28.3 pg (29.0-33.0); MEAN CORPUSCULAR HGB CONC 33.7 g/dl (32.0-37.0); MEAN CORPUSCULAR VOLUME 83.8 fl (82.0-101.0); MEAN PLATELET VOLUME 9.9 fl (7.4-10.4); MONOCYTE # 0.6 10^3/ul (0.3-0.9); MONOCYTES % 9.3 % (0.0-11.0); NEUTROPHIL # 4.1 10^3/ul (1.6-7.5); NEUTROPHILS % 61.1 % (39.0-77.0); PLATELET COUNT 183 10^3/UL (140-415); RED CELL DISTRIBUTION WIDTH 13.8 % (11.5-14.5); WHITE BLOOD COUNT 6.7 10^3/ul (4.8-10.8)
[2017-04-08 06:41] LABS: CALCIUM 8.2 mg/dl (8.4-10.2); CREATININE 0.71 mg/dl (0.44-1.00); MAGNESIUM 1.5 mg/dl (1.7-2.5); PHOSPHORUS 3.1 mg/dl (2.5-4.9); POTASSIUM 3.1 mmol/L (3.5-5.1)
[2017-04-08 07:41] VITALS: BP 144/63; RESP 18
[2017-04-08] MEDS: CLOPIDOGREL 75 MG TAB PO SCH (09:16)
[2017-04-08] MEDS: CHOLECALCIFEROL 1,000 UNIT TAB PO SCH (09:16)
[2017-04-08] MEDS: BETHANECHOL 25 MG TAB PO SCH ×3 (09:17→20:40)
[2017-04-08] MEDS: FAMOTIDINE 20 MG TAB PO SCH ×2 (09:17→20:40)
[2017-04-08] MEDS: ASPIRIN 81 MG TAB PO SCH (09:17)
[2017-04-08] MEDS: CHLORTHALIDONE 25 MG TAB PO SCH (09:18)
[2017-04-08] MEDS: POTASSIUM CHLORIDE (SR) 20 MEQ TAB PO SCH ×2 (11:54→13:54)
[2017-04-08] MEDS: SOD CHLORIDE 0.9% 1,000 ML IV SCH (11:56)
[2017-04-08] MEDS ORDERED: MAGNESIUM SULFATE 2 GM/50 ML 50 ML IVPB ONE (12:00)
--- NOTE | 2017-04-08 12:35 | PN ---
Date/Time of Note Date/Time of Note DATE: 04/08/17 TIME: 12:33 Assessment/Plan VTE Prophylaxis VTE Prophylaxis Intervention: LMWH Lines/Catheters IV Catheter Type (from Nrs): Peripheral IV Urinary Cath still in place: Yes Reason Cath still needed: urinary retention Assessment/Plan Chief Complaint/Hosp Course Pelvic mass with urinary obstruction Problems: Assessment/Plan A- improving P- adv diet and try to d/c [place] Subjective 24 Hr Interval Summary Free Text/Dictation OOB sl more. Leslie diet and + flatus. Exam/Review of Systems Vital Signs Vitals Vital Signs Date Time Temp Pulse Resp B/P Pulse Ox O2 Delivery O2 Flow Rate FiO2 04/08/17 07:41 97.9 70 18 144/63 93 04/07/17 08:10 Nasal Cannula 2.0 Intake and Output 04/07/17 04/07/17 04/08/17 15:00 23:00 07:00 Intake Total 1480 ml Output Total 350 ml 500 ml Balance 1130 ml -500 ml Exam Resp- clear [facility]- NSR Abd- soft and clean, mildly tender Ext NT no edema Results Result Diagram: 04/08/17 0516 04/08/17 0516 Results 24 hrs Laboratory Tests Test 04/07/17 18:35 04/07/17 23:48 04/08/17 05:16 04/08/17 05:33 Bedside Glucose 176 108 135 White Blood Count 6.7 Red Blood Count 2.90 L Hemoglobin 8.2 L Hematocrit 24.3 L Mean Corpuscular Volume 83.8 Mean Corpuscular Hemoglobin 28.3 L Mean Corpuscular Hemoglobin Concent 33.7 Red Cell Distribution Width 13.8 Platelet Count 183 Mean Platelet Volume 9.9 Neutrophils % 61.1 Lymphocytes % 23.4 Monocytes % 9.3 Eosinophils % 5.2 Basophils % 0.6 Nucleated Red Blood Cells % 0.0 Neutrophils # 4.1 Lymphocytes # 1.6 Monocytes # 0.6 Eosinophils # 0.4 Basophils # 0.0 Nucleated Red Blood Cells # 0.0 Sodium Level 127 L Potassium Level 3.1 L Chloride Level 92 L Carbon Dioxide Level 29 Anion Gap 9 Blood Urea Nitrogen 10 Creatinine 0.71 Glucose Level 111 Calcium Level 8.2 L Phosphorus Level 3.1 Magnesium Level 1.5 L Test 04/08/17 12:05 Bedside Glucose 139 Medications Medications Current Medications Atorvastatin Calcium (Lipitor) 20 mg HS PO Last administered on 04/07/17 21:00 ; Admin Dose 20 MG; Start 03/29/17 at 21:00 Bethanechol Chloride (Urecholine) 25 mg TID PO Last administered on 04/08/17 09:17; Admin Dose 25 MG; Start 03/29/17 at 15:00 Carvedilol (Coreg) 12.5 mg BID PO Last administered on 04/08/17 09:17; Admin Dose 12.5 MG; Start 03/29/17 at 14:00 Chlorthalidone (Hygroton) 25 mg DAILY PO Last administered on 04/08/17 09:18; Admin Dose 25 MG; Start 03/30/17 at 09:00 Cholecalciferol (Vitamin D) 5,000 unit DAILY PO Last administered on 04/08/17 09:16; Admin Dose 5,000 UNIT; Start 03/30/17 at 09:00 Levothyroxine Sodium (Synthroid) 50 mcg DAILY@06 PO Last administered on 05:34; Admin Dose 50 MCG; Start 03/30/17 at 06:00 Tamsulosin HCl (Flomax) 0.4 mg HS PO Last administered on 04/07/17 21:00; Admin Dose 0.4 MG; Start 03/29/17 at 21:00 Pantoprazole (Protonix Tab) 40 mg DAILY@06 PO Last administered on 04/08/17 05 :34; Admin Dose 40 MG; Start 03/30/17 at 06:00 Ondansetron HCl (Zofran Inj) 4 mg Q6H PRN IV NAUSEA AND/OR VOMITING Last administered on 04/06/17 08:54; Admin Dose 4 MG; Start 03/29/17 at 13:30 Acetaminophen (Tylenol Tab) 650 mg Q6H PRN PO PAIN LEVEL 1-3 OR FEVER Last administered on 04/04/17 23:28; Admin Dose 650 MG; Start 03/29/17 at 13:30 Docusate Sodium (Colace) 100 mg Q12H PRN PO CONSTIPATION; Start 03/29/17 at 14: 00 Diagnostic Test (Pha) (Accu-Chek) 1 ea 02 XX ; Start 03/30/17 at 02:00 Miscellaneous Information 1 ea NOTE XX ; Start 03/29/17 at 14:00 Glucose (Glutose) 15 gm Q15M PRN PO DECREASED GLUCOSE; Start 03/29/17 at 14:00 Glucose (Glutose) 22.5 gm Q15M PRN PO DECREASED GLUCOSE; Start 03/29/17 at 14: 00 Dextrose (D50w Syringe) 25 ml Q15M PRN IV DECREASED GLUCOSE; Start 03/29/17 at 14:00 Dextrose (D50w Syringe) 50 ml Q15M PRN IV DECREASED GLUCOSE; Start 03/29/17 at 14:00 Glucagon (Glucagen) 1 mg Q15M PRN IM DECREASED GLUCOSE; Start 03/29/17 at 14:00 Glucose (Glutose) 15 gm Q15M PRN BUCCAL DECREASED GLUCOSE; Start 03/29/17 at 14 :00 Hydralazine HCl (Apresoline) 10 mg Q4H PRN IV ELEVATED BLOOD PRESSURE Last administered on 04/06/17 20:06; Admin Dose 10 MG; Start 03/29/17 at 15:00 Olopatadine HCl (Patanol 0.1% Oph) 1 drop BID PRN LEFT EYE ITCHING Last administered on 04/06/17 11:20; Admin Dose 1 DROP; Start 04/04/17 at 23:30 Morphine Sulfate (morphine) 2 mg Q2H PRN IV PAIN LEVEL 6-10 Last administered on 04/06/17 18:07; Admin Dose 2 MG; Start 04/05/17 at 19:30 Acetaminophen/ Hydrocodone Bitart ([place] (5/325)) 1 tab Q6H PRN PO PAIN LEVEL 6 -10; Start 04/05/17 at 19:30 Ketorolac Tromethamine (Toradol) 15 mg Q6H PRN IV PAIN Last administered on 02:08; Admin Dose 15 MG; Start 04/05/17 at 19:30; Stop 04/08/17 at 19:29 Diphenhydramine HCl (Benadryl) 25 mg Q6H PRN IV ITCHING; Start 04/05/17 at 19: 30 Ondansetron HCl (Zofran Inj) 4 mg Q6H PRN IV NAUSEA AND/OR VOMITING; Start at 19:30 Famotidine (Pepcid) 20 mg BID PO Last administered on 04/08/17 09:17; Admin Dose 20 MG; Start 04/05/17 at 21:00 Insulin Aspart (Novolog Insulin Pen) NOVOLOG *MILD* ALGORI... Q6 SC Last administered on 04/07/17 18:40; Admin Dose 1 UNIT; Start 04/06/17 at 12:00 Clopidogrel Bisulfate (plaVIX) 75 mg DAILY PO Last administered on 04/08/17 09 :16; Admin Dose 75 MG; Start 04/07/17 at 09:00 Aspirin (Aspirin) 81 mg DAILY PO Last administered on 04/08/17 09:17; Admin Dose 81 MG; Start 04/07/17 at 17:00 Guaifenesin/ Codeine Phosphate (Robitussin Ac Liquid Cup) 10 ml Q4H PRN PO FOR COUGHING Last administered on 04/08/17 05:36; Admin Dose 10 ML; Start 04/08/17 at 02:30 Potassium Chloride 40 meq 40 meq Q2 PO Last administered on 04/08/17 11:54; Admin Dose 40 MEQ; Start 04/08/17 at 11:00; Stop 04/08/17 at 13:01 Magnesium Sulfate 50 ml @ 25 mls/hr ONCE ONCE IVPB Last administered on 12:11; Admin Dose 25 MLS/HR; Start 04/08/17 at 12:00; Stop 04/08/17 at 13: 59 Sodium Chloride (NS) 1,000 ml @ 100 mls/hr Q10H IV Last administered on 11:56; Admin Dose 100 MLS/HR; Start 04/08/17 at 12:00 KOKI REAGAN MD Apr 08, 2017 12:35
[2017-04-08 13:29] VITALS: BP 195/81; RESP 20
[2017-04-08 13:43] LABS: POTASSIUM,URINE RANDOM 20.7 mmol/L (25-125)
[2017-04-08 13:55] VITALS: BP 183/84; PULSE 66
[2017-04-08] MEDS: hydrALAzine 20 MG INJ IV PRN (13:55)
[2017-04-08 14:57] VITALS: BP 145/66; PULSE 72; RESP 18
--- NOTE | 2017-04-08 16:18 | PN ---
Date/Time of Note Date/Time of Note DATE: 04/08/17 TIME: 16:15 Assessment/Plan VTE Prophylaxis VTE Prophylaxis Intervention: SCD's Lines/Catheters IV Catheter Type (from [facility]): Peripheral IV Urinary Cath still in place: Yes Reason Cath still needed: urinary retention Assessment/Plan Chief Complaint/Hosp Course 1. Urinary retention secondary to pelvic mass - s/p lap BSO 04/05/17. pending path. - Patient has known about cyst in ovary since 12/2016 - CT abd/pelvis showed 12 cm L adnexal cystic mass that displaces adjacent colon as well as displaces the uterus to the right of midline 2. Anemia of chronic disease - FOBT negative - no acute bleeding appreciated - will continue monitoring 3. Hyponatremia -low again after surgery, repeat urine studies ordered. hypotonic hyponatremia. unclear etiology at this time, will attempt NS as patient is reported to not be eating much. -repeat labs tomorrow, if lower, will consult nephro. 4. DM - Was on Metformin at home and will hold - ISS and accuchecks - A1c 6.8 5. HTN - stable - PRN Labetalol and Hydralazine to keep SBP <160 6. CAD s/p stent 4 years ago - Plavix restarted - patient not previously on asa 81mg, unknown reason per patient, will start asa 81 for hx of cad with stent. 7. HLP - statin 8. Disposition - full liquids today. patient doing well. ordered PT today Problems: Subjective 24 Hr Interval Summary Free Text/Dictation patient has no acute complaints, still reportedly not eating too much. Exam/Review of Systems Vital Signs Vitals Vital Signs Date Time Temp Pulse Resp B/P Pulse Ox O2 Delivery O2 Flow Rate FiO2 04/08/17 14:57 72 18 145/66 94 Room Air 04/08/17 13:29 97.7 04/07/17 08:10 2.0 Intake and Output 04/07/17 04/07/17 04/08/17 15:00 23:00 07:00 Intake Total 1480 ml Output Total 350 ml 500 ml Balance 1130 ml -500 ml Exam Constitutional: alert, oriented, well developed Respiratory: clear to auscultation, normal air movement, No crackles/rales, No diminished breath sounds, No wheezing Cardiovascular: regular rate and rhythm, systolic murmur Gastrointestinal: multiple laproscopic surgical sites, CDI. Extremities: normal pulses, mild swelling of right ankle but no ecchymosis, erythema, or disfigurement appreciated Skin: nl turgor Results Result Diagram: 04/08/17 0516 04/08/17 0516 Results 24 hrs Laboratory Tests Test 04/07/17 18:35 04/07/17 23:48 04/08/17 05:16 04/08/17 05:33 Bedside Glucose 176 108 135 White Blood Count 6.7 Red Blood Count 2.90 L Hemoglobin 8.2 L Hematocrit 24.3 L Mean Corpuscular Volume 83.8 Mean Corpuscular Hemoglobin 28.3 L Mean Corpuscular Hemoglobin Concent 33.7 Red Cell Distribution Width 13.8 Platelet Count 183 Mean Platelet Volume 9.9 Neutrophils % 61.1 Lymphocytes % 23.4 Monocytes % 9.3 Eosinophils % 5.2 Basophils % 0.6 Nucleated Red Blood Cells % 0.0 Neutrophils # 4.1 Lymphocytes # 1.6 Monocytes # 0.6 Eosinophils # 0.4 Basophils # 0.0 Nucleated Red Blood Cells # 0.0 Sodium Level 127 L Potassium Level 3.1 L Chloride Level 92 L Carbon Dioxide Level 29 Anion Gap 9 Blood Urea Nitrogen 10 Creatinine 0.71 Glucose Level 111 Calcium Level 8.2 L Phosphorus Level 3.1 Magnesium Level 1.5 L Test 04/08/17 12:00 04/08/17 12:05 04/08/17 12:26 Urine Osmolality 492 Urine Random Creatinine 173.51 Urine Random Sodium 45 Urine Random Potassium 20.7 L Bedside Glucose 139 Osmolality 257 L Medications Medications Current Medications Atorvastatin Calcium (Lipitor) 20 mg HS PO Last administered on 04/07/17 21:00 ; Admin Dose 20 MG; Start 03/29/17 at 21:00 Bethanechol Chloride (Urecholine) 25 mg TID PO Last administered on 04/08/17 13:54; Admin Dose 25 MG; Start 03/29/17 at 15:00 Carvedilol (Coreg) 12.5 mg BID PO Last administered on 04/08/17 09:17; Admin Dose 12.5 MG; Start 03/29/17 at 14:00 Chlorthalidone (Hygroton) 25 mg DAILY PO Last administered on 04/08/17 09:18; Admin Dose 25 MG; Start 03/30/17 at 09:00 Cholecalciferol (Vitamin D) 5,000 unit DAILY PO Last administered on 04/08/17 09:16; Admin Dose 5,000 UNIT; Start 03/30/17 at 09:00 Levothyroxine Sodium (Synthroid) 50 mcg DAILY@06 PO Last administered on 05:34; Admin Dose 50 MCG; Start 03/30/17 at 06:00 Tamsulosin HCl (Flomax) 0.4 mg HS PO Last administered on 04/07/17 21:00; Admin Dose 0.4 MG; Start 03/29/17 at 21:00 Pantoprazole (Protonix Tab) 40 mg DAILY@06 PO Last administered on 04/08/17 05 :34; Admin Dose 40 MG; Start 03/30/17 at 06:00 Ondansetron HCl (Zofran Inj) 4 mg Q6H PRN IV NAUSEA AND/OR VOMITING Last administered on 04/06/17 08:54; Admin Dose 4 MG; Start 03/29/17 at 13:30 Acetaminophen (Tylenol Tab) 650 mg Q6H PRN PO PAIN LEVEL 1-3 OR FEVER Last administered on 04/04/17 23:28; Admin Dose 650 MG; Start 03/29/17 at 13:30 Docusate Sodium (Colace) 100 mg Q12H PRN PO CONSTIPATION; Start 03/29/17 at 14: 00 Diagnostic Test (Pha) (Accu-Chek) 1 ea 02 XX ; Start 03/30/17 at 02:00 Miscellaneous Information 1 ea NOTE XX ; Start 03/29/17 at 14:00 Glucose (Glutose) 15 gm Q15M PRN PO DECREASED GLUCOSE; Start 03/29/17 at 14:00 Glucose (Glutose) 22.5 gm Q15M PRN PO DECREASED GLUCOSE; Start 03/29/17 at 14: 00 Dextrose (D50w Syringe) 25 ml Q15M PRN IV DECREASED GLUCOSE; Start 03/29/17 at 14:00 Dextrose (D50w Syringe) 50 ml Q15M PRN IV DECREASED GLUCOSE; Start 03/29/17 at 14:00 Glucagon (Glucagen) 1 mg Q15M PRN IM DECREASED GLUCOSE; Start 03/29/17 at 14:00 Glucose (Glutose) 15 gm Q15M PRN BUCCAL DECREASED GLUCOSE; Start 03/29/17 at 14 :00 Hydralazine HCl (Apresoline) 10 mg Q4H PRN IV ELEVATED BLOOD PRESSURE Last administered on 04/08/17 13:55; Admin Dose 10 MG; Start 03/29/17 at 15:00 Olopatadine HCl (Patanol 0.1% Oph) 1 drop BID PRN LEFT EYE ITCHING Last administered on 04/06/17 11:20; Admin Dose 1 DROP; Start 04/04/17 at 23:30 Morphine Sulfate (morphine) 2 mg Q2H PRN IV PAIN LEVEL 6-10 Last administered on 04/06/17 18:07; Admin Dose 2 MG; Start 04/05/17 at 19:30 Acetaminophen/ Hydrocodone Bitart ([place] (5/325)) 1 tab Q6H PRN PO PAIN LEVEL 6 -10; Start 04/05/17 at 19:30 Ketorolac Tromethamine (Toradol) 15 mg Q6H PRN IV PAIN Last administered on 13:54; Admin Dose 15 MG; Start 04/05/17 at 19:30; Stop 04/08/17 at 19:29 Diphenhydramine HCl (Benadryl) 25 mg Q6H PRN IV ITCHING; Start 04/05/17 at 19: 30 Ondansetron HCl (Zofran Inj) 4 mg Q6H PRN IV NAUSEA AND/OR VOMITING; Start at 19:30 Famotidine (Pepcid) 20 mg BID PO Last administered on 04/08/17 09:17; Admin Dose 20 MG; Start 04/05/17 at 21:00 Clopidogrel Bisulfate (plaVIX) 75 mg DAILY PO Last administered on 04/08/17 09 :16; Admin Dose 75 MG; Start 04/07/17 at 09:00 Aspirin (Aspirin) 81 mg DAILY PO Last administered on 04/08/17 09:17; Admin Dose 81 MG; Start 04/07/17 at 17:00 Guaifenesin/ Codeine Phosphate 10 ml 10 ml Q4H PRN PO FOR COUGHING Last administered on 04/08/17 05:36; Admin Dose 10 ML; Start 04/08/17 at 02:30 Sodium Chloride (NS) 1,000 ml @ 50 mls/hr Q20H IV Last administered on t 11:56; Admin Dose 100 MLS/HR; Start 04/08/17 at 12:00 HENRY WILLSON Apr 08, 2017 16:18
[2017-04-08] MEDS: Insulin NOVOLOG SS MILD Algorithm (SS with meals and bedtime) SC SCH ×2 (17:43→20:40)
[2017-04-08] MEDS ORDERED: INSULIN ASPART [NOVOLOG] 3 ML PEN SC SCH (17:45)
--- NOTE | 2017-04-08 18:08 | OPR ---
Date/Time of Note Date/Time of Note DATE: 04/08/17 TIME: 18:03 Operative Report Free Text/Dictation OPERATIVE REPORT [facility] Name: Danay Fishman Medical Date: 04/05/17 Preoperative Diagnosis: 1- Left adnexal mass and pain 2- Right hydroureter 3- Anemia 4- Possible torsion (intermittent) Postoperative Diagnosis: 1- Probable intermittent torsion; pathology pending 2- Bilateral ureteral stricture / right hydroureter 3- Adhesions Procedures: 1- Bilateral laparoscopic salpingoophorectomy 2- Bilateral ureteral dissection with repositioning 3- Enterolysis 4- Mini-laparotomy / umbilical hernia repair Surgeon: Dr. Moreno Cardiovascular Technician: Dr. Ketan Olivares Anesthesia: General Indications for procedure: The patient is an 81-year old female with a 12-14 cm compelx cystic left adnexal mass and discomfort with a minimally elevated CA-125. She was taken to the operating room to undertake a laparoscopic bilateral salpingoophorectomy with possible staging if needed after considering all options with risks and benefits. Findings and Summary Name: Danay Fishman Medical After laparoscopic placement a complex cystic right adnexal mass was noted with adherence to the sidewall with a smaller left adnexia also adherent to the sidewall and pelvic adhesions. As the retroperitoneal anatomy was distorted due to the adnexia being densely adhering to the pelvic sidewalls a bilateral ureteral dissection was needed and the laparoscopic BSO was completed with a negative frozen section. Procedure: After being prepped and draped in the usual manner an EEA-sizer and pneumo- occluder were inserted vaginally to define anatomy and assure pneumoperitoneum if necessary. Subsequently, we placed a 5 mm trocar cephlad to the umbilicus without incident and insufflated to 15 mm Hg, after which we and placed two 5 millimeter trocars laterally and a 12 millimeter trocar suprapubically. At this time any pelvic adhesions were lysed with sharp dissection and the Omni as needed. Subsequently we explored and noted a 12-14 millimeter left adnexal mass densely adherent to the sidewall and it was complex with areas of dark fluid consistent with an intermittent torsion. Of note, the mass was densely adherent to the sidewall and the sidewall contralateralally as well. Hence, on the left side of the pathology, the round ligament was transected with a Thunderbeat and the retroperitoneum opened parallel to the infundibulo-pelvic ( IP) ligament with the Thunderbeat and Omni. The ureter was identified, and noted to be densely adherent to the pathology and somewhat distorted anatomically, hence requiring a ureteral dissection/repositioning as a separate procedure. The ureter was dissected away and repositioned with great care using the endo-dissector, with both the Omni, after which the ureter was repositioned laterally. This process was carried out throughout the ureteral length in the pelvis and it peristalsed normally subsequently to being repositioned. Subsequently, the IP ligament was cauterized and transected with a Thunderbeat. The adnexia with adherent peritoneum was mobilized with a Name: [facility] Omni and Gyrus bipolar cutting forceps while visualizing the ureter. Hence the andexia were fully by transaction of the triple-pedicle with the Thunderbeat and Omni. The right retroperitoneum was opened, after which the ureter was visualized and a hydroureter confirmed. The round ligament was cauterized and transected with a Gyrus bipolar cutting forceps and the retroperitoneum opened parallel to the infundibulo-pelvic (IP) ligament with the Omni and Gyrus bipolar cutting forceps as done on the contralateral side. The ureter further lateralized with the Omni and endo-dissector as a separate procedure and the adherence of the aforementioned large mass was addressed without incident with the Omni and sharp dissection. The umbilical hernia was opened with sharp dissection and electrocautery and the hernia sac removed, after which a 15-mm sac was placed and the mass inserted and suctioned without incident or spillage and the adnexa was sent to pathology and confirmed to be benign. The Omni and the Gyrus bipolar cutting forceps were used to address any small bleeding areas with the ureter visualized on the right. This process was carried out throughout the ureteral length in the pelvis and it peristalsed normally once repositioned. Subsequently, the right IP ligament was cauterized and transected with a Thunderbeat. The adnexia with adherent peritoneum was mobilized with a Omni while visualizing the ureter. Hence the andexia were fully by transaction of the right IP-ligament with a Thunderbeat. The adnexia was sent to pathology and confirmed to be benign. After irrigating and assuring hemostasis the 12-millimeter trocar was removed and the fascia was closed with 0-vicryl using an endo-close devise The aforementioned hernia was repaired with interrupted 1- Prolene suture. The gas was removed and the skin of all sites then closed with subcuticular 4-0 Monocryl suture. The EBL was 200ml and the patient tolerated the procedure well and left the OR in good condition. Koki Moreno M.D. Preoperative Diagnosis as above Postoperative Diagnosis as above 3as Operation/Procedure Performed as above Surgeon see signature line Cardiovascular Technician as above Anesthesia Type: other Anesthesiologist: SOY AMATO MD Estimated Blood Loss: 150 - 200 ml's Transfusion none Specimen multiple Grafts/Implants none Tubes/Drains none Complications none Indications as above Procedure Description as above KOKI MORENO MD Apr 08, 2017 18:07
[2017-04-08 20:29] VITALS: BP 137/62; RESP 18
[2017-04-08] MEDS: TAMSULOSIN (SR) 0.4 MG CAP PO SCH (20:39)
[2017-04-08] MEDS: ATORVASTATIN 20 MG TAB PO SCH (20:40)
[2017-04-09] MEDS: ACCU-CHEK XX SCH (02:00)
[2017-04-09 02:15] VITALS: BP 150/65; RESP 20
[2017-04-09] MEDS: SOD CHLORIDE 0.9% 1,000 ML IV SCH (02:43)
[2017-04-09] MEDS: PANTOPRAZOLE (EC) 40 MG TAB PO SCH (06:39)
[2017-04-09] MEDS: LEVOTHYROXINE 50 MCG TAB PO SCH (06:39)
[2017-04-09 07:01] LABS: BASOPHIL # 0.1 10^3/ul (0.0-0.1); BASOPHILS % 0.8 % (0.0-2.0); EOSINOPHILS # 0.4 10^3/ul (0.0-0.5); EOSINOPHILS % 7.2 % (0.0-7.0); HEMATOCRIT 28.6 % (37.0-47.0); HEMOGLOBIN 9.4 g/dl (12.0-16.0); LYMPHOCYTES # 1.5 10^3/ul (0.8-2.9); LYMPHOCYTES % 25.1 % (15.0-51.0); MEAN CORPUSCULAR HEMOGLOBIN 27.7 pg (29.0-33.0); MEAN CORPUSCULAR HGB CONC 32.9 g/dl (32.0-37.0); MEAN CORPUSCULAR VOLUME 84.4 fl (82.0-101.0); MEAN PLATELET VOLUME 10.3 fl (7.4-10.4); MONOCYTE # 0.5 10^3/ul (0.3-0.9); NEUTROPHIL # 3.5 10^3/ul (1.6-7.5); NEUTROPHILS % 57.6 % (39.0-77.0); PLATELET COUNT 231 10^3/UL (140-415); RED BLOOD COUNT 3.39 10^6/ul (4.20-5.40); RED CELL DISTRIBUTION WIDTH 13.5 % (11.5-14.5)
[2017-04-09 07:30] LABS: CALCIUM 8.9 mg/dl (8.4-10.2); CREATININE 0.69 mg/dl (0.44-1.00); MAGNESIUM 1.7 mg/dl (1.7-2.5); PHOSPHORUS 3.2 mg/dl (2.5-4.9); POTASSIUM 4.2 mmol/L (3.5-5.1)
[2017-04-09 07:41] VITALS: BP 170/73; RESP 19
[2017-04-09] MEDS: Insulin NOVOLOG SS MILD Algorithm (SS with meals and bedtime) SC SCH ×4 (07:51→21:32)
[2017-04-09] MEDS: CHLORTHALIDONE 25 MG TAB PO SCH (08:38)
[2017-04-09] MEDS: ASPIRIN 81 MG TAB PO SCH (08:38)
[2017-04-09] MEDS: CLOPIDOGREL 75 MG TAB PO SCH (08:38)
[2017-04-09] MEDS: BETHANECHOL 25 MG TAB PO SCH ×3 (08:38→21:20)
[2017-04-09] MEDS: FAMOTIDINE 20 MG TAB PO SCH ×2 (08:39→21:20)
[2017-04-09] MEDS: CHOLECALCIFEROL 1,000 UNIT TAB PO SCH (08:39)
[2017-04-09] MEDS ORDERED: traZODone 50 MG TAB PO PRN (10:30)
[2017-04-09] MEDS ORDERED: BISACODYL (EC) 5 MG TAB PO PRN (12:00)
[2017-04-09 12:09] VITALS: BP 213/85; PULSE 75
[2017-04-09 12:13] VITALS: BP 194/79; PULSE 70
[2017-04-09] MEDS: LISINOPRIL 20 MG TAB PO SCH (12:16)
[2017-04-09] MEDS: hydrALAzine 20 MG INJ IV PRN (12:16)
--- NOTE | 2017-04-09 12:37 | PN ---
Date/Time of Note Date/Time of Note DATE: 04/09/17 TIME: 12:32 Assessment/Plan VTE Prophylaxis VTE Prophylaxis Intervention: SCD's Lines/Catheters IV Catheter Type (from [facility]): Peripheral IV Urinary Cath still in place: No Assessment/Plan Chief Complaint/Hosp Course 1. Urinary retention secondary to pelvic mass - s/p lap BSO 04/05/17. pending path. - Patient has known about cyst in ovary since 12/2016 - CT abd/pelvis showed 12 cm L adnexal cystic mass that displaces adjacent colon as well as displaces the uterus to the right of midline -hui sucessfully DC'd 2. Anemia of chronic disease - FOBT negative - no acute bleeding appreciated - will continue monitoring 3. Hyponatremia -low again after surgery, repeat urine studies ordered. hypotonic hyponatremia. unclear etiology at this time, however patient is on chlorthalidone which may cause hyponatremia. Will stop chlorthalidone. replacing with other HTN medication. -repeat labs tomorrow, if lower, will consult nephro. 4. DM - Was on Metformin at home and will hold - ISS and accuchecks - A1c 6.8 5. HTN - elevated today, will increase coreg -replaced chlorthalidone with lisinopril 20 - PRN Hydralazine to keep SBP <160 6. CAD s/p stent 4 years ago - Plavix restarted - patient not previously on asa 81mg, unknown reason per patient, will start asa 81 for hx of cad with stent. -on coreg, starting fredi-i instead of thiazide diuretic as more appropriate for CAD and hyponatremia. 7. HLP - statin 8. Disposition - advance diet as tolerated, PT ordered, dispo accordingly once PT recs made. Problems: Subjective 24 Hr Interval Summary Free Text/Dictation Patient complains of inability to sleep at night, pain due to swelling in legs. Exam/Review of Systems Vital Signs Vitals Vital Signs Date Time Temp Pulse Resp B/P Pulse Ox O2 Delivery O2 Flow Rate FiO2 04/09/17 12:13 70 194/79 04/09/17 07:41 98.2 19 97 04/08/17 14:57 Room Air 04/07/17 08:10 2.0 Intake and Output 04/08/17 04/08/17 04/09/17 15:00 23:00 07:00 Intake Total 50 ml 1020 ml 1400 ml Output Total 1200 ml 3325 ml Balance 50 ml -180 ml -1925 ml Exam Constitutional: alert, oriented, well developed Respiratory: clear to auscultation, normal air movement, No crackles/rales, No diminished breath sounds, No wheezing Cardiovascular: regular rate and rhythm, systolic murmur Gastrointestinal: multiple laproscopic surgical sites, CDI. Extremities: normal pulses, mild bilateral LE edema. Skin: nl turgor Results Result Diagram: 04/09/1735 04/09/1735 Results 24 hrs Laboratory Tests Test 04/08/17 17:41 04/08/17 20:39 04/09/17 05:35 04/09/17 07:50 Bedside Glucose 130 115 130 White Blood Count 6.0 Red Blood Count 3.39 L Hemoglobin 9.4 L Hematocrit 28.6 L Mean Corpuscular Volume 84.4 Mean Corpuscular Hemoglobin 27.7 L Mean Corpuscular Hemoglobin Concent 32.9 Red Cell Distribution Width 13.5 Platelet Count 231 # Mean Platelet Volume 10.3 Neutrophils % 57.6 Lymphocytes % 25.1 Monocytes % 9.0 Eosinophils % 7.2 H Basophils % 0.8 Nucleated Red Blood Cells % 0.0 Neutrophils # 3.5 Lymphocytes # 1.5 Monocytes # 0.5 Eosinophils # 0.4 Basophils # 0.1 Nucleated Red Blood Cells # 0.0 Sodium Level 128 L Potassium Level 4.2 Chloride Level 94 L Carbon Dioxide Level 29 Anion Gap 9 Blood Urea Nitrogen 10 Creatinine 0.69 Glucose Level 110 Calcium Level 8.9 Phosphorus Level 3.2 Magnesium Level 1.7 Test 04/09/17 12:03 Bedside Glucose 123 Medications Medications Current Medications Atorvastatin Calcium (Lipitor) 20 mg HS PO Last administered on 04/08/17 20:40 ; Admin Dose 20 MG; Start 03/29/17 at 21:00 Bethanechol Chloride (Urecholine) 25 mg TID PO Last administered on 04/09/17 12:16; Admin Dose 25 MG; Start 03/29/17 at 15:00 Cholecalciferol (Vitamin D) 5,000 unit DAILY PO Last administered on 04/09/17 08:39; Admin Dose 5,000 UNIT; Start 03/30/17 at 09:00 Levothyroxine Sodium (Synthroid) 50 mcg DAILY@06 PO Last administered on 06:39; Admin Dose 50 MCG; Start 03/30/17 at 06:00 Tamsulosin HCl (Flomax) 0.4 mg HS PO Last administered on 04/08/17 20:39; Admin Dose 0.4 MG; Start 03/29/17 at 21:00 Pantoprazole (Protonix Tab) 40 mg DAILY@06 PO Last administered on 04/09/17 06 :39; Admin Dose 40 MG; Start 03/30/17 at 06:00 Ondansetron HCl (Zofran Inj) 4 mg Q6H PRN IV NAUSEA AND/OR VOMITING Last administered on 04/06/17 08:54; Admin Dose 4 MG; Start 03/29/17 at 13:30 Acetaminophen (Tylenol Tab) 650 mg Q6H PRN PO PAIN LEVEL 1-3 OR FEVER Last administered on 04/04/17 23:28; Admin Dose 650 MG; Start 03/29/17 at 13:30 Docusate Sodium (Colace) 100 mg Q12H PRN PO CONSTIPATION; Start 03/29/17 at 14: 00 Diagnostic Test (Pha) (Accu-Chek) 1 ea 02 XX ; Start 03/30/17 at 02:00 Miscellaneous Information 1 ea NOTE XX ; Start 03/29/17 at 14:00 Glucose (Glutose) 15 gm Q15M PRN PO DECREASED GLUCOSE; Start 03/29/17 at 14:00 Glucose (Glutose) 22.5 gm Q15M PRN PO DECREASED GLUCOSE; Start 03/29/17 at 14: 00 Dextrose (D50w Syringe) 25 ml Q15M PRN IV DECREASED GLUCOSE; Start 03/29/17 at 14:00 Dextrose (D50w Syringe) 50 ml Q15M PRN IV DECREASED GLUCOSE; Start 03/29/17 at 14:00 Glucagon (Glucagen) 1 mg Q15M PRN IM DECREASED GLUCOSE; Start 03/29/17 at 14:00 Glucose (Glutose) 15 gm Q15M PRN BUCCAL DECREASED GLUCOSE; Start 03/29/17 at 14 :00 Hydralazine HCl (Apresoline) 10 mg Q4H PRN IV ELEVATED BLOOD PRESSURE Last administered on 04/09/17 12:16; Admin Dose 10 MG; Start 03/29/17 at 15:00 Olopatadine HCl (Patanol 0.1% Oph) 1 drop BID PRN LEFT EYE ITCHING Last administered on 04/06/17 11:20; Admin Dose 1 DROP; Start 04/04/17 at 23:30 Morphine Sulfate (morphine) 2 mg Q2H PRN IV PAIN LEVEL 6-10 Last administered on 04/06/17 18:07; Admin Dose 2 MG; Start 04/05/17 at 19:30 Acetaminophen/ Hydrocodone Bitart ([place] (5/325)) 1 tab Q6H PRN PO PAIN LEVEL 6 -10; Start 04/05/17 at 19:30 Diphenhydramine HCl (Benadryl) 25 mg Q6H PRN IV ITCHING; Start 04/05/17 at 19: 30 Ondansetron HCl (Zofran Inj) 4 mg Q6H PRN IV NAUSEA AND/OR VOMITING; Start at 19:30 Famotidine (Pepcid) 20 mg BID PO Last administered on 04/09/17 08:39; Admin Dose 20 MG; Start 04/05/17 at 21:00 Clopidogrel Bisulfate (plaVIX) 75 mg DAILY PO Last administered on 04/09/17 08 :38; Admin Dose 75 MG; Start 04/07/17 at 09:00 Aspirin (Aspirin) 81 mg DAILY PO Last administered on 04/09/17 08:38; Admin Dose 81 MG; Start 04/07/17 at 17:00 Guaifenesin/ Codeine Phosphate (Robitussin Ac Liquid Cup) 10 ml Q4H PRN PO FOR COUGHING Last administered on 04/08/17 05:36; Admin Dose 10 ML; Start 04/08/17 at 02:30 Carvedilol (Coreg) 25 mg BID PO ; Start 04/09/17 at 21:00 Lisinopril (Zestril) 20 mg DAILY PO Last administered on 04/09/17 12:16; Admin Dose 20 MG; Start 04/09/17 at 10:00 Trazodone HCl (Desyrel) 50 mg HS PRN PO insomnia; Start 04/09/17 at 10:30 Bisacodyl (Dulcolax) 10 mg DAILY PRN PO CONSTIPATION; Start 04/09/17 at 12:00 HENRY WILLSON Apr 09, 2017 12:37
[2017-04-09 14:00] VITALS: BP 145/65; RESP 18
--- NOTE | 2017-04-09 18:24 | PN ---
Date/Time of Note Date/Time of Note DATE: 04/09/17 TIME: 18:23 Assessment/Plan VTE Prophylaxis VTE Prophylaxis Intervention: LMWH Lines/Catheters IV [facility]ter Type (from [facility]): Peripheral IV Urinary Cath still in place: No Assessment/Plan Chief Complaint/Hosp Course Pelvic mass with urinary obstruction Problems: Assessment/Plan A- doing well P- adv diet and dischg planning 1-2 days Subjective 24 Hr Interval Summary Free Text/Dictation feels better, OOB more with minimal ambulation, voids and +BM Exam/Review of Systems Vital Signs Vitals Vital Signs Date Time Temp Pulse Resp B/P Pulse Ox O2 Delivery O2 Flow Rate FiO2 04/09/17 14:00 97.5 79 18 145/65 96 04/08/17 14:57 Room Air 04/07/17 08:10 2.0 Intake and Output 04/08/17 04/08/17 04/09/17 15:00 23:00 07:00 Intake Total 50 ml 1020 ml 1400 ml Output Total 1200 ml 3325 ml Balance 50 ml -180 ml -1925 ml Exam Resp- clear CVS- NSR Abd- soft mildly tender and wounds clean but obese. Ext NT no edema Results Result Diagram: 04/09/17 0535 04/09/17 0535 Results 24 hrs Laboratory Tests Test 04/08/17 20:39 04/09/17 05:35 04/09/17 07:50 04/09/17 12:03 Bedside Glucose 115 130 123 White Blood Count 6.0 Red Blood Count 3.39 L Hemoglobin 9.4 L Hematocrit 28.6 L Mean Corpuscular Volume 84.4 Mean Corpuscular Hemoglobin 27.7 L Mean Corpuscular Hemoglobin Concent 32.9 Red Cell Distribution Width 13.5 Platelet Count 231 # Mean Platelet Volume 10.3 Neutrophils % 57.6 Lymphocytes % 25.1 Monocytes % 9.0 Eosinophils % 7.2 H Basophils % 0.8 Nucleated Red Blood Cells % 0.0 Neutrophils # 3.5 Lymphocytes # 1.5 Monocytes # 0.5 Eosinophils # 0.4 Basophils # 0.1 Nucleated Red Blood Cells # 0.0 Sodium Level 128 L Potassium Level 4.2 Chloride Level 94 L Carbon Dioxide Level 29 Anion Gap 9 Blood Urea Nitrogen 10 Creatinine 0.69 Glucose Level 110 Calcium Level 8.9 Phosphorus Level 3.2 Magnesium Level 1.7 Test 04/09/17 17:10 Bedside Glucose 133 Medications Medications Current Medications Atorvastatin Calcium (Lipitor) 20 mg HS PO Last administered on 04/08/17 20:40 ; Admin Dose 20 MG; Start 03/29/17 at 21:00 Bethanechol Chloride (Urecholine) 25 mg TID PO Last administered on 04/09/17 12:16; Admin Dose 25 MG; Start 03/29/17 at 15:00 Cholecalciferol (Vitamin D) 5,000 unit DAILY PO Last administered on 04/09/17 08:39; Admin Dose 5,000 UNIT; Start 03/30/17 at 09:00 Levothyroxine Sodium (Synthroid) 50 mcg DAILY@06 PO Last administered on 06:39; Admin Dose 50 MCG; Start 03/30/17 at 06:00 Tamsulosin HCl (Flomax) 0.4 mg HS PO Last administered on 04/08/17 20:39; Admin Dose 0.4 MG; Start 03/29/17 at 21:00 Pantoprazole (Protonix Tab) 40 mg DAILY@06 PO Last administered on 04/09/17 06 :39; Admin Dose 40 MG; Start 03/30/17 at 06:00 Ondansetron HCl (Zofran Inj) 4 mg Q6H PRN IV NAUSEA AND/OR VOMITING Last administered on 04/06/17 08:54; Admin Dose 4 MG; Start 03/29/17 at 13:30 Acetaminophen (Tylenol Tab) 650 mg Q6H PRN PO PAIN LEVEL 1-3 OR FEVER Last administered on 04/04/17 23:28; Admin Dose 650 MG; Start 03/29/17 at 13:30 Docusate Sodium (Colace) 100 mg Q12H PRN PO CONSTIPATION; Start 03/29/17 at 14: 00 Diagnostic Test (Pha) (Accu-Chek) 1 ea 02 XX ; Start 03/30/17 at 02:00 Miscellaneous Information 1 ea NOTE XX ; Start 03/29/17 at 14:00 Glucose (Glutose) 15 gm Q15M PRN PO DECREASED GLUCOSE; Start 03/29/17 at 14:00 Glucose (Glutose) 22.5 gm Q15M PRN PO DECREASED GLUCOSE; Start 03/29/17 at 14: 00 Dextrose (D50w Syringe) 25 ml Q15M PRN IV DECREASED GLUCOSE; Start 03/29/17 at 14:00 Dextrose (D50w Syringe) 50 ml Q15M PRN IV DECREASED GLUCOSE; Start 03/29/17 at 14:00 Glucagon (Glucagen) 1 mg Q15M PRN IM DECREASED GLUCOSE; Start 03/29/17 at 14:00 Glucose (Glutose) 15 gm Q15M PRN BUCCAL DECREASED GLUCOSE; Start 03/29/17 at 14 :00 Hydralazine HCl (Apresoline) 10 mg Q4H PRN IV ELEVATED BLOOD PRESSURE Last administered on 04/09/17 12:16; Admin Dose 10 MG; Start 03/29/17 at 15:00 Olopatadine HCl (Patanol 0.1% Oph) 1 drop BID PRN LEFT EYE ITCHING Last administered on 04/06/17 11:20; Admin Dose 1 DROP; Start 04/04/17 at 23:30 Morphine Sulfate (morphine) 2 mg Q2H PRN IV PAIN LEVEL 6-10 Last administered on 04/06/17 18:07; Admin Dose 2 MG; Start 04/05/17 at 19:30 Acetaminophen/ Hydrocodone Bitart ([place] (5/325)) 1 tab Q6H PRN PO PAIN LEVEL 6 -10; Start 04/05/17 at 19:30 Diphenhydramine HCl (Benadryl) 25 mg Q6H PRN IV ITCHING; Start 04/05/17 at 19: 30 Ondansetron HCl (Zofran Inj) 4 mg Q6H PRN IV NAUSEA AND/OR VOMITING; Start at 19:30 Famotidine (Pepcid) 20 mg BID PO Last administered on 04/09/17 08:39; Admin Dose 20 MG; Start 04/05/17 at 21:00 Clopidogrel Bisulfate (plaVIX) 75 mg DAILY PO Last administered on 04/09/17 08 :38; Admin Dose 75 MG; Start 04/07/17 at 09:00 Aspirin (Aspirin) 81 mg DAILY PO Last administered on 04/09/17 08:38; Admin Dose 81 MG; Start 04/07/17 at 17:00 Guaifenesin/ Codeine Phosphate (Robitussin Ac Liquid Cup) 10 ml Q4H PRN PO FOR COUGHING Last administered on 04/08/17 05:36; Admin Dose 10 ML; Start 04/08/17 at 02:30 Carvedilol (Coreg) 25 mg BID PO ; Start 04/09/17 at 21:00 Lisinopril (Zestril) 20 mg DAILY PO Last administered on 04/09/17 12:16; Admin Dose 20 MG; Start 04/09/17 at 10:00 Trazodone HCl (Desyrel) 50 mg HS PRN PO insomnia; Start 04/09/17 at 10:30 Bisacodyl (Dulcolax) 10 mg DAILY PRN PO CONSTIPATION; Start 04/09/17 at 12:00 KOKI REAGAN MD Apr 09, 2017 18:24
[2017-04-09 20:14] VITALS: BP 152/67; RESP 20
[2017-04-09] MEDS: ATORVASTATIN 20 MG TAB PO SCH (21:20)
[2017-04-09] MEDS: TAMSULOSIN (SR) 0.4 MG CAP PO SCH (21:20)
[2017-04-10] MEDS: ACCU-CHEK XX SCH (02:00)
[2017-04-10 02:10] VITALS: BP 131/60; RESP 20
[2017-04-10 06:28] LABS: BASOPHIL # 0.1 10^3/ul (0.0-0.1); BASOPHILS % 1.1 % (0.0-2.0); EOSINOPHILS # 0.4 10^3/ul (0.0-0.5); EOSINOPHILS % 6.4 % (0.0-7.0); HEMOGLOBIN 8.8 g/dl (12.0-16.0); LYMPHOCYTES # 1.7 10^3/ul (0.8-2.9); LYMPHOCYTES % 29.6 % (15.0-51.0); MEAN CORPUSCULAR HEMOGLOBIN 28.9 pg (29.0-33.0); MEAN CORPUSCULAR HGB CONC 33.8 g/dl (32.0-37.0); MEAN CORPUSCULAR VOLUME 85.2 fl (82.0-101.0); MONOCYTE # 0.7 10^3/ul (0.3-0.9); MONOCYTES % 11.8 % (0.0-11.0); NEUTROPHIL # 2.8 10^3/ul (1.6-7.5); NEUTROPHILS % 50.7 % (39.0-77.0); PLATELET COUNT 219 10^3/UL (140-415); RED BLOOD COUNT 3.05 10^6/ul (4.20-5.40); RED CELL DISTRIBUTION WIDTH 13.5 % (11.5-14.5); WHITE BLOOD COUNT 5.6 10^3/ul (4.8-10.8)
[2017-04-10] MEDS: LEVOTHYROXINE 50 MCG TAB PO SCH (06:38)
[2017-04-10] MEDS: PANTOPRAZOLE (EC) 40 MG TAB PO SCH (06:38)
[2017-04-10 07:15] LABS: CALCIUM 8.5 mg/dl (8.4-10.2); CREATININE 0.8 mg/dl (0.44-1.00); MAGNESIUM 1.4 mg/dl (1.7-2.5); PHOSPHORUS 4.2 mg/dl (2.5-4.9); POTASSIUM 3.7 mmol/L (3.5-5.1)
[2017-04-10 07:41] VITALS: BP 122/51; RESP 18
[2017-04-10] MEDS: Insulin NOVOLOG SS MILD Algorithm (SS with meals and bedtime) SC SCH ×4 (07:49→21:00)
[2017-04-10] MEDS: FAMOTIDINE 20 MG TAB PO SCH ×2 (09:50→21:34)
[2017-04-10] MEDS: CHOLECALCIFEROL 1,000 UNIT TAB PO SCH (09:50)
[2017-04-10] MEDS: ASPIRIN 81 MG TAB PO SCH (09:51)
[2017-04-10] MEDS: BETHANECHOL 25 MG TAB PO SCH ×3 (09:52→21:34)
[2017-04-10] MEDS: CLOPIDOGREL 75 MG TAB PO SCH (09:52)
[2017-04-10] MEDS: LISINOPRIL 20 MG TAB PO SCH (09:53)
--- NOTE | 2017-04-10 11:23 | PN ---
Date/Time of Note Date/Time of Note DATE: 04/10/17 TIME: 10:35 Assessment/Plan VTE Prophylaxis VTE Prophylaxis Intervention: heparin Lines/Catheters [facility] (from [facility] Saline Lock Urinary Cath still in place: No Assessment/Plan Assessment/Plan 1. Urinary retention secondary to pelvic mass - s/p lap BSO 04/05/17 - [employer] On[employer] on board and consultation appreciated - Patient has known about cyst in ovary since 12/2016 - CT abd/pelvis showed 12 cm L adnexal cystic mass that displaces adjacent colon as well as displaces the uterus to the right of midline - urinating well without hui 2. Anemia of chronic disease - FOBT negative - no acute bleeding appreciated - will continue monitoring 3. Hyponatremia- improving 4. DM - Was on Metformin at home and will hold - ISS and accuchecks - A1c 6.8 5. HTN - stable - PRN Hydralazine to keep SBP <160 6. CAD s/p stent 4 years ago - On plavix - patient not previously on asa 81mg, unknown reason per patient, will start asa 81 for hx of cad with stent. -on coreg and Rocael 7. HLP - statin 8. Disposition - PT recommendation SNF. Will consult case management for assistance. Continue advancing diet Subjective 24 Hr Interval Summary Free Text/Dictation Patient has some tenderness at sight of surgical incision. Also requesting to use the restroom for a BM but denies any new complaints and no acute overnight events. Exam/Review of Systems Vital Signs Vitals Vital Signs Date Time Temp Pulse Resp B/P Pulse Ox O2 Delivery O2 Flow Rate FiO2 04/10/17 07:41 98.4 67 18 122/51 94 04/08/17 14:57 Room Air 04/07/17 08:10 2.0 Intake and Output 04/09/17 04/09/17 04/10/17 15:00 23:00 07:00 Intake Total 325 ml 440 ml 200 ml Output Total 650 ml Balance 325 ml 440 ml -450 ml Exam General: alert, oriented, well developed Lungs: clear to auscultation, normal air movement, No crackles/rales, No wheezing CVS: regular rate and rhythm, systolic murmur GI: soft, tenderness at surgical incision sites, healing well. no rebound or guarding Extremities: normal pulses, mild bilateral LE edema. Skin: nl turgor Results Result Diagram: 04/10/1751604/10/17 0517 Results 24 hrs Laboratory Tests Test 04/09/17 12:03 04/09/17 17:10 04/09/17 21:18 04/10/17 02:38 Bedside Glucose 123 133 222 H 113 Test 04/10/17 05:17 04/10/17 07:46 04/10/17 07:48 White Blood Count 5.6 Red Blood Count 3.05 L Hemoglobin 8.8 L Hematocrit 26.0 L Mean Corpuscular Volume 85.2 Mean Corpuscular Hemoglobin 28.9 L Mean Corpuscular Hemoglobin Concent 33.8 Red Cell Distribution Width 13.5 Platelet Count 219 Mean Platelet Volume 10.0 Neutrophils % 50.7 Lymphocytes % 29.6 Monocytes % 11.8 H Eosinophils % 6.4 Basophils % 1.1 Nucleated Red Blood Cells % 0.0 Neutrophils # 2.8 Lymphocytes # 1.7 Monocytes # 0.7 Eosinophils # 0.4 Basophils # 0.1 Nucleated Red Blood Cells # 0.0 Sodium Level 132 L Potassium Level 3.7 Chloride Level 97 Carbon Dioxide Level 29 Anion Gap 10 Blood Urea Nitrogen 12 Creatinine 0.80 Glucose Level 110 Calcium Level 8.5 Phosphorus Level 4.2 Magnesium Level 1.4 L Bedside Glucose 141 125 Medications Medications Current Medications Atorvastatin Calcium (Lipitor) 20 mg HS PO Last administered on 04/09/17 21:20 ; Admin Dose 20 MG; Start 03/29/17 at 21:00 Bethanechol Chloride (Urecholine) 25 mg TID PO Last administered on 04/10/17 09:52; Admin Dose 25 MG; Start 03/29/17 at 15:00 Cholecalciferol (Vitamin D) 5,000 unit DAILY PO Last administered on 04/10/17 09:50; Admin Dose 5,000 UNIT; Start 03/30/17 at 09:00 Levothyroxine Sodium (Synthroid) 50 mcg DAILY@06 PO Last administered on 06:38; Admin Dose 50 MCG; Start 03/30/17 at 06:00 Tamsulosin HCl (Flomax) 0.4 mg HS PO Last administered on 04/09/17 21:20; Admin Dose 0.4 MG; Start 03/29/17 at 21:00 Pantoprazole (Protonix Tab) 40 mg DAILY@06 PO Last administered on 04/10/17 06 :38; Admin Dose 40 MG; Start 03/30/17 at 06:00 Ondansetron HCl (Zofran Inj) 4 mg Q6H PRN IV NAUSEA AND/OR VOMITING Last administered on 04/06/17 08:54; Admin Dose 4 MG; Start 03/29/17 at 13:30 Acetaminophen (Tylenol Tab) 650 mg Q6H PRN PO PAIN LEVEL 1-3 OR FEVER Last administered on 04/04/17 23:28; Admin Dose 650 MG; Start 03/29/17 at 13:30 Docusate Sodium (Colace) 100 mg Q12H PRN PO CONSTIPATION; Start 03/29/17 at 14: 00 Diagnostic Test (Pha) (Accu-Chek) 1 ea 02 XX ; Start 03/30/17 at 02:00 Miscellaneous Information 1 ea NOTE XX ; Start 03/29/17 at 14:00 Glucose (Glutose) 15 gm Q15M PRN PO DECREASED GLUCOSE; Start 03/29/17 at 14:00 Glucose (Glutose) 22.5 gm Q15M PRN PO DECREASED GLUCOSE; Start 03/29/17 at 14: 00 Dextrose (D50w Syringe) 25 ml Q15M PRN IV DECREASED GLUCOSE; Start 03/29/17 at 14:00 Dextrose (D50w Syringe) 50 ml Q15M PRN IV DECREASED GLUCOSE; Start 03/29/17 at 14:00 Glucagon (Glucagen) 1 mg Q15M PRN IM DECREASED GLUCOSE; Start 03/29/17 at 14:00 Glucose (Glutose) 15 gm Q15M PRN BUCCAL DECREASED GLUCOSE; Start 03/29/17 at 14 :00 Hydralazine HCl (Apresoline) 10 mg Q4H PRN IV ELEVATED BLOOD PRESSURE Last administered on 04/09/17 12:16; Admin Dose 10 MG; Start 03/29/17 at 15:00 Olopatadine HCl (Patanol 0.1% Oph) 1 drop BID PRN LEFT EYE ITCHING Last administered on 04/06/17 11:20; Admin Dose 1 DROP; Start 04/04/17 at 23:30 Morphine Sulfate (morphine) 2 mg Q2H PRN IV PAIN LEVEL 6-10 Last administered on 04/06/17 18:07; Admin Dose 2 MG; Start 04/05/17 at 19:30 Acetaminophen/ Hydrocodone Bitart ([place] (5/325)) 1 tab Q6H PRN PO PAIN LEVEL 6 -10; Start 04/05/17 at 19:30 Diphenhydramine HCl (Benadryl) 25 mg Q6H PRN IV ITCHING; Start 04/05/17 at 19: 30 Ondansetron HCl (Zofran Inj) 4 mg Q6H PRN IV NAUSEA AND/OR VOMITING; Start at 19:30 Famotidine (Pepcid) 20 mg BID PO Last administered on 04/10/17 09:50; Admin Dose 20 MG; Start 04/05/17 at 21:00 Clopidogrel Bisulfate (plaVIX) 75 mg DAILY PO Last administered on 04/10/17 09 :52; Admin Dose 75 MG; Start 04/07/17 at 09:00 Aspirin (Aspirin) 81 mg DAILY PO Last administered on 04/10/17 09:51; Admin Dose 81 MG; Start 04/07/17 at 17:00 Guaifenesin/ Codeine Phosphate (Robitussin Ac Liquid Cup) 10 ml Q4H PRN PO FOR COUGHING Last administered on 04/08/17 05:36; Admin Dose 10 ML; Start 04/08/17 at 02:30 Carvedilol (Coreg) 25 mg BID PO Last administered on 04/10/17 09:51; Admin Dose 25 MG; Start 04/09/17 at 21:00 Lisinopril (Zestril) 20 mg DAILY PO Last administered on 04/10/17 09:53; Admin Dose 20 MG; Start 04/09/17 at 10:00 Trazodone HCl (Desyrel) 50 mg HS PRN PO insomnia; Start 04/09/17 at 10:30 Bisacodyl (Dulcolax) 10 mg DAILY PRN PO CONSTIPATION; Start 04/09/17 at 12:00 SUSAN GUEVARA MD Apr 10, 2017 10:35
[2017-04-10 13:55] VITALS: BP 144/58; RESP 18
[2017-04-10] MEDS: OLOPATADINE 0.1% 5 ML OPH LEFT EYE PRN (17:29)
[2017-04-10 19:47] VITALS: BP 135/63; RESP 20
[2017-04-10] MEDS: TAMSULOSIN (SR) 0.4 MG CAP PO SCH (21:33)
[2017-04-10] MEDS: ATORVASTATIN 20 MG TAB PO SCH (21:34)
[2017-04-11] MEDS: ACCU-CHEK XX SCH (02:00)
[2017-04-11 02:09] VITALS: BP 121/56; RESP 20
[2017-04-11 05:38] LABS: BASOPHIL # 0.1 10^3/ul (0.0-0.1); BASOPHILS % 0.9 % (0.0-2.0); EOSINOPHILS # 0.3 10^3/ul (0.0-0.5); EOSINOPHILS % 5.8 % (0.0-7.0); HEMATOCRIT 26.4 % (37.0-47.0); LYMPHOCYTES # 1.8 10^3/ul (0.8-2.9); MEAN CORPUSCULAR HEMOGLOBIN 28.8 pg (29.0-33.0); MEAN CORPUSCULAR HGB CONC 34.1 g/dl (32.0-37.0); MEAN CORPUSCULAR VOLUME 84.3 fl (82.0-101.0); MEAN PLATELET VOLUME 9.5 fl (7.4-10.4); MONOCYTE # 0.7 10^3/ul (0.3-0.9); NEUTROPHIL # 2.8 10^3/ul (1.6-7.5); NEUTROPHILS % 49.9 % (39.0-77.0); PLATELET COUNT 215 10^3/UL (140-415); RED BLOOD COUNT 3.13 10^6/ul (4.20-5.40); RED CELL DISTRIBUTION WIDTH 13.6 % (11.5-14.5); WHITE BLOOD COUNT 5.7 10^3/ul (4.8-10.8)
[2017-04-11] MEDS: LEVOTHYROXINE 50 MCG TAB PO SCH (05:45)
[2017-04-11] MEDS: PANTOPRAZOLE (EC) 40 MG TAB PO SCH (05:45)
[2017-04-11 06:03] LABS: ALBUMIN 2.9 g/dl (3.3-4.9); CALCIUM 8.9 mg/dl (8.4-10.2); CREATININE 0.74 mg/dl (0.44-1.00); MAGNESIUM 1.2 mg/dl (1.7-2.5); PHOSPHORUS 4.2 mg/dl (2.5-4.9); POTASSIUM 3.8 mmol/L (3.5-5.1)
[2017-04-11 07:37] VITALS: BP 174/80; RESP 18
[2017-04-11] MEDS: Insulin NOVOLOG SS MILD Algorithm (SS with meals and bedtime) SC SCH ×3 (08:00→17:45)
[2017-04-11] MEDS: CHOLECALCIFEROL 1,000 UNIT TAB PO SCH (08:53)
[2017-04-11] MEDS: LISINOPRIL 20 MG TAB PO SCH (08:54)
[2017-04-11] MEDS: ASPIRIN 81 MG TAB PO SCH (08:54)
[2017-04-11] MEDS: FAMOTIDINE 20 MG TAB PO SCH (08:54)
[2017-04-11] MEDS: CLOPIDOGREL 75 MG TAB PO SCH (08:54)
--- NOTE | 2017-04-11 09:01 | PN ---
Date/Time of Note Date/Time of Note DATE: 04/11/17 TIME: 09:01 Assessment/Plan VTE Prophylaxis VTE Prophylaxis Intervention: ambulation Lines/Catheters [facility] Saline Lock Urinary Cath still in place: No Assessment/Plan Assessment/Plan 1. 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 - Patient has known about cyst in ovary since 12/2016 - CT abd/pelvis showed 12 cm L adnexal cystic mass that displaces adjacent colon as well as displaces the uterus to the right of midline - urinating well without hui 2. Anemia of chronic disease - FOBT negative - no acute bleeding appreciated - will continue monitoring 3. Hyponatremia- stable 4. DM - Was on Metformin at home and will hold - ISS and accuchecks - A1c 6.8 5. HTN - stable - PRN Hydralazine to keep SBP <160 6. CAD s/p stent 4 years ago - On plavix and aspirin -on coreg and Rocael 7. HLP - statin 8. Disposition - Patient decided she no longer wants to go to SNF. Will arrange for HH with PT and discharge in the am if remains stable Subjective 24 Hr Interval Summary Free Text/Dictation Patient doing well and no new complaints. No acute overnight events. Exam/Review of Systems Vital Signs Vitals Vital Signs Date Time Temp Pulse Resp B/P Pulse Ox O2 Delivery O2 Flow Rate FiO2 04/11/17 07:37 97.9 69 18 174/80 92 04/08/17 14:57 Room Air 04/07/17 08:10 2.0 Intake and Output 04/10/17 04/10/17 04/11/17 15:00 23:00 07:00 Intake Total 1160 ml 240 ml Output Total 600 ml Balance 1160 ml -360 ml Exam General: alert, oriented, well developed Lungs: clear to auscultation, normal air movement, No crackles/rales, No wheezing CVS: regular rate and rhythm, systolic murmur GI: soft, mildly tender at surgical incision sites, healing well. no rebound or guarding Extremities: normal pulses, mild bilateral LE edema. Skin: nl turgor, surgical incision site clean and dry Results Result Diagram: 04/11/1715 04/11/1715 Results 24 hrs Laboratory Tests Test 04/10/17 11:57 04/10/17 12:00 04/10/17 17:21 04/10/17 21:37 Bedside Glucose 145 161 118 152 Test 04/11/17 05:15 04/11/17 08:25 White Blood Count 5.7 Red Blood Count 3.13 L Hemoglobin 9.0 L Hematocrit 26.4 L Mean Corpuscular Volume 84.3 Mean Corpuscular Hemoglobin 28.8 L Mean Corpuscular Hemoglobin Concent 34.1 Red Cell Distribution Width 13.6 Platelet Count 215 Mean Platelet Volume 9.5 Neutrophils % 49.9 Lymphocytes % 31.0 Monocytes % 12.0 H Eosinophils % 5.8 Basophils % 0.9 Nucleated Red Blood Cells % 0.0 Neutrophils # 2.8 Lymphocytes # 1.8 Monocytes # 0.7 Eosinophils # 0.3 Basophils # 0.1 Nucleated Red Blood Cells # 0.0 Sodium Level 129 L Potassium Level 3.8 Chloride Level 95 L Carbon Dioxide Level 31 Anion Gap 7 L Blood Urea Nitrogen 10 Creatinine 0.74 Glucose Level 117 Calcium Level 8.9 Phosphorus Level 4.2 Magnesium Level 1.2 L Albumin 2.9 L Bedside Glucose 126 Medications Medications Current Medications Atorvastatin Calcium (Lipitor) 20 mg HS PO Last administered on 04/10/17 21:34 ; Admin Dose 20 MG; Start 03/29/17 at 21:00 Bethanechol Chloride (Urecholine) 25 mg TID PO Last administered on 04/10/17 21:34; Admin Dose 25 MG; Start 03/29/17 at 15:00 Cholecalciferol (Vitamin D) 5,000 unit DAILY PO Last administered on 04/11/17 08:53; Admin Dose 5,000 UNIT; Start 03/30/17 at 09:00 Levothyroxine Sodium (Synthroid) 50 mcg DAILY@06 PO Last administered on 05:45; Admin Dose 50 MCG; Start 03/30/17 at 06:00 Tamsulosin HCl (Flomax) 0.4 mg HS PO Last administered on 04/10/17 21:33; Admin Dose 0.4 MG; Start 03/29/17 at 21:00 Pantoprazole (Protonix Tab) 40 mg DAILY@06 PO Last administered on 04/11/17 05 :45; Admin Dose 40 MG; Start 03/30/17 at 06:00 Ondansetron HCl (Zofran Inj) 4 mg Q6H PRN IV NAUSEA AND/OR VOMITING Last administered on 04/06/17 08:54; Admin Dose 4 MG; Start 03/29/17 at 13:30 Acetaminophen (Tylenol Tab) 650 mg Q6H PRN PO PAIN LEVEL 1-3 OR FEVER Last administered on 04/04/17 23:28; Admin Dose 650 MG; Start 03/29/17 at 13:30 Docusate Sodium (Colace) 100 mg Q12H PRN PO CONSTIPATION; Start 03/29/17 at 14: 00 Diagnostic Test (Pha) (Accu-Chek) 1 ea 02 XX ; Start 03/30/17 at 02:00 Miscellaneous Information 1 ea NOTE XX ; Start 03/29/17 at 14:00 Glucose (Glutose) 15 gm Q15M PRN PO DECREASED GLUCOSE; Start 03/29/17 at 14:00 Glucose (Glutose) 22.5 gm Q15M PRN PO DECREASED GLUCOSE; Start 03/29/17 at 14: 00 Dextrose (D50w Syringe) 25 ml Q15M PRN IV DECREASED GLUCOSE; Start 03/29/17 at 14:00 Dextrose (D50w Syringe) 50 ml Q15M PRN IV DECREASED GLUCOSE; Start 03/29/17 at 14:00 Glucagon (Glucagen) 1 mg Q15M PRN IM DECREASED GLUCOSE; Start 03/29/17 at 14:00 Glucose (Glutose) 15 gm Q15M PRN BUCCAL DECREASED GLUCOSE; Start 03/29/17 at 14 :00 Hydralazine HCl (Apresoline) 10 mg Q4H PRN IV ELEVATED BLOOD PRESSURE Last administered on 04/09/17 12:16; Admin Dose 10 MG; Start 03/29/17 at 15:00 Olopatadine HCl (Patanol 0.1% Oph) 1 drop BID PRN LEFT EYE ITCHING Last administered on 04/10/17 17:29; Admin Dose 1 DROP; Start 04/04/17 at 23:30 Morphine Sulfate (morphine) 2 mg Q2H PRN IV PAIN LEVEL 6-10 Last administered on 04/06/17 18:07; Admin Dose 2 MG; Start 04/05/17 at 19:30 Acetaminophen/ Hydrocodone Bitart ([place] (5/325)) 1 tab Q6H PRN PO PAIN LEVEL 6 -10; Start 04/05/17 at 19:30 Diphenhydramine HCl (Benadryl) 25 mg Q6H PRN IV ITCHING; Start 04/05/17 at 19: 30 Ondansetron HCl (Zofran Inj) 4 mg Q6H PRN IV NAUSEA AND/OR VOMITING; Start at 19:30 Famotidine (Pepcid) 20 mg BID PO Last administered on 04/11/17 08:54; Admin Dose 20 MG; Start 04/05/17 at 21:00 Clopidogrel Bisulfate (plaVIX) 75 mg DAILY PO Last administered on 04/11/17 08 :54; Admin Dose 75 MG; Start 04/07/17 at 09:00 Aspirin (Aspirin) 81 mg DAILY PO Last administered on 04/11/17 08:54; Admin Dose 81 MG; Start 04/07/17 at 17:00 Guaifenesin/ Codeine Phosphate (Robitussin Ac Liquid Cup) 10 ml Q4H PRN PO FOR COUGHING Last administered on 04/08/17 05:36; Admin Dose 10 ML; Start 04/08/17 at 02:30 Carvedilol (Coreg) 25 mg BID PO Last administered on 04/11/17 08:55; Admin Dose 25 MG; Start 04/09/17 at 21:00 Lisinopril (Zestril) 20 mg DAILY PO Last administered on 04/11/17 08:54; Admin Dose 20 MG; Start 04/09/17 at 10:00 Trazodone HCl (Desyrel) 50 mg HS PRN PO insomnia; Start 04/09/17 at 10:30 Bisacodyl (Dulcolax) 10 mg DAILY PRN PO CONSTIPATION; Start 04/09/17 at 12:00 SUSAN GUEVARA MD Apr 11, 2017 09:01
[2017-04-11] MEDS: ACETAMINOPHEN 325 MG TAB PO PRN (09:14)
[2017-04-11] MEDS ORDERED: MAGNESIUM SULFATE 4 GM/100 ML 100 ML IVPB ONE (10:00)
[2017-04-11 10:11] VITALS: BP 163/72; PULSE 66; RESP 18
[2017-04-11] MEDS: BETHANECHOL 25 MG TAB PO SCH ×2 (11:01→12:28)
[2017-04-11 11:07] VITALS: BP 140/64; PULSE 60
[2017-04-11 13:47] VITALS: BP 133/58; RESP 18
[2017-04-11] MEDS ORDERED: ASPI81TA3 PO (17:30)
[2017-04-11] MEDS ORDERED: LISI20TA11 PO (17:30)
--- NOTE | 2017-04-11 17:33 | DS ---
Date/Time of Note Date/Time of Note DATE: 04/11/17 TIME: 17:33 Discharge Summary Admission/Discharge Info Admit Date/Time Mar 29, 2017 at 12:34 Discharge Date/Time Discharge Diagnosis 1. Urinary retention secondary to pelvic mass s/p lap BSO 04/05/17 2. Anemia of chronic disease 3. Hyponatremia- stable 4. DM 5. HTN 6. CAD s/p stent 4 years ago 7. HLP Patient Condition: Good Consults stick puller- Dr. Moreno Procedures 1- Bilateral laparoscopic salpingoophorectomy 2- Bilateral ureteral dissection with repositioning 3- Enterolysis 4- Mini-laparotomy / umbilical hernia repair Hx of Present Illness 81 yo F with PMH HTN, hypothyroidism, diabetes, HLD, CAD, and arthritis presents to ED with urinary retention and abdominal bloating. Patients family was at bedside and history obtained from patient and family member. Patient states she has been experiencing urinary retention since last December 2015 and has been self catheterizing. She had a catheter placed recently and when removed began experiencing suprapubic discomfort, bloating, and urinary retention. She has been to this ED multiple times for this same reason. CT abdomen and pelvis was performed which showed a 12cm L adnexal cystic mass and never followed up with anyone after initially discovered last December since had difficulty finding a sustainability manager. She denies any appetite change, weight loss, fevers, nausea, vomiting, chills, or other abdominal issues. Mixing Machine Operator was contacted in the ED who recommended consulting sustainability manager onc. Patient is willing to undergo surgical intervention if indicated. Hospital Course Patient presented for urinary retention that was believed to be seconday to pelvic mass that was seen on CT abdomen/pelvis. Results of imaging studies showed 12 cm L adnexal cystic mass that displaces adjacent colon as well as displaces the uterus to the right of midline. Patient had been aware of this since 12/2016 when presented to ED for other issues. Inter Com Servicer was consulted and patient was taken for lap BSO on 04/05/17 after her plavix was held for 5 days minimum. Patient tolerated procedure well and had no complications. She was recommended to go to SNF due to her decompensated states secondary to long hospital course but patient and family opted for home health with PT instead. While inpatient, she was also found to have anemia and workup performed indicated was secondary to chronic disease. Patient diabetes was controlled on insulin while metformin was held as inpatient. A1c results were 6.8 and patient was counseled on proper diet. During her hospitalization, her BP medications were adjusted as well in order to keep SBP <140. Given patients history of CAD she was started on fredi instead of her thiazide and continued on coreg. Patient was discharged home in good condition and instructed to continue her medications as prescribed. . Home Meds Active Scripts Aspirin (Aspirin) 81 Mg Chew, 81 MG PO DAILY for 30 Days, #30 TAB Prov:SUSAN GUEVARA MD 04/11/17 Lisinopril* (Lisinopril*) 20 Mg Tablet, 20 MG PO DAILY for 30 Days, #30 TAB Prov:SUSAN GUEVARA MD 04/11/17 Tamsulosin Hcl* (Flomax*) 0.4 Mg Cap.er.24h, 0.4 MG PO HS for 30 Days, CAP Prov:HIRAM GARCIA NP 04/04/16 Bethanechol Chloride* (Urecholine*) 25 Mg Tab, 25 MG PO TID for 30 Days, TAB 3 Refills Prov:KAVITHA VAZQUEZ 01/03/16 Reported Medications Carvedilol* (Carvedilol*) 12.5 Mg Tablet, 12.5 MG PO BID, #60 TAB 03/31/16 Omeprazole* (Omeprazole*) 20 Mg Capsule.dr, 20 MG PO DAILY, CAP 06/11/15 Clopidogrel Bisulfate (Clopidogrel) 75 Mg Tablet, 75 MG PO DAILY, TAB 07/19/14 Atorvastatin Calcium* (Atorvastatin Calcium*) 20 Mg Tablet, 20 MG PO HS, TAB 07/19/14 Chlorthalidone* (Chlorthalidone*) 25 Mg Tablet, 25 MG PO DAILY, TAB 07/19/14 Metformin Hcl* (Metformin Hcl*) 500 Mg Tablet, 500 MG PO DAILY, TAB 07/19/14 Cholecalciferol* (Vitamin D*) 5,000 Unit Tablet, 5000 UNIT PO DAILY, #1 TAB 05/12/13 Levothyroxine Sodium* (Synthroid*) 50 Mcg Tablet, 50 MCG PO DAILY, #1 TAB 05/12/13 Discontinued Scripts Phenazopyridine Hcl* (Pyridium*) 200 Mg Tab, 200 MG PO TID Y for URINARY PAIN, # 6 TAB Prov:CITLALY JACOBO MD 03/21/17 Cephalexin* (Keflex*) 500 Mg Capsule, 500 MG PO QID for 7 Days, CAP Prov:CITLALY JACOBO MD 03/21/17 Follow-up Plan 1. Follow up with Primary care physician in 1-2 weeks 2. Continue taking all medications as prescribed 3. If experiencing fevers, chills, loss of consciousness, chest pain, shortness of breath, or abdominal issues, call your PCP or return to the ED 4. Keep surgical incision clean and dry 5. You will have home health with physical therapy come to your home Primary Care Provider Kathy Negron Time spent on discharge: > 30 minutes Pending Labs Laboratory Tests Test 04/10/17 21:37 04/11/17 05:15 04/11/17 08:25 04/11/17 12:12 Bedside Glucose 152mg/dL (70-220) 126mg/dL (70-220) 141mg/dL (70-220) White Blood Count 5.710^3/ul (4.8-10.8) Red Blood Count 3.1310^6/ul (4.20-5.40) Hemoglobin 9.0g/dl (12.0-16.0) Hematocrit 26.4% (37.0-47.0) Mean Corpuscular Volume 84.3fl (82.0-101.0) Mean Corpuscular Hemoglobin 28.8pg (29.0-33.0) Mean Corpuscular Hemoglobin Concent 34.1g/dl (32.0-37.0) Red Cell Distribution Width 13.6% (11.5-14.5) Platelet Count 73725^3/UL (140-415) Mean Platelet Volume 9.5fl (7.4-10.4) Neutrophils % 49.9% (39.0-77.0) Lymphocytes % 31.0% (15.0-51.0) Monocytes % 12.0% (0.0-11.0) Eosinophils % 5.8% (0.0-7.0) Basophils % 0.9% (0.0-2.0) Nucleated Red Blood Cells % 0.0/100WBC (0.0-0.0) Neutrophils # 2.810^3/ul (1.6-7.5) Lymphocytes # 1.810^3/ul (0.8-2.9) Monocytes # 0.710^3/ul (0.3-0.9) Eosinophils # 0.310^3/ul (0.0-0.5) Basophils # 0.110^3/ul (0.0-0.1) Nucleated Red Blood Cells # 0.010^3/ul (0.0-0.0) Sodium Level 129mmol/L (135-144) Potassium Level 3.8mmol/L (3.5-5.1) Chloride Level 95mmol/L (97-110) Carbon Dioxide Level 31mmol/L (21-31) Anion Gap 7 (8-16) Blood Urea Nitrogen 10mg/dl (7-20) Creatinine 0.74mg/dl (0.44-1.00) Glucose Level 117mg/dl (70-220) Calcium Level 8.9mg/dl (8.4-10.2) Phosphorus Level 4.2mg/dl (2.5-4.9) Magnesium Level 1.2mg/dl (1.7-2.5) Albumin 2.9g/dl (3.3-4.9) SUSAN GUEVARA MD Apr 11, 2017 17:33 SUSAN GUEVARA MD Apr 11, 2017 17:33
--- NOTE | 2017-04-11 17:33 | PDOCDIS ---
Discharge Instructions DIAGNOSIS Discharge Diagnosis 1. Urinary retention secondary to pelvic mass s/p lap BSO 04/05/17 2. Anemia of chronic disease 3. Hyponatremia- stable 4. DM 5. HTN 6. CAD s/p stent 4 years ago 7. HLP CONDITION Patient Condition: Good HOME CARE INSTRUCTIONS: Special Diet: CARB CONTROLLED DIET ACTIVITY: Activity Restrictions: No Restrictions FOLLOW UP/APPOINTMENTS Follow-up Plan 1. Follow up with Primary care physician in 1-2 weeks 2. Continue taking all medications as prescribed 3. If experiencing fevers, chills, loss of consciousness, chest pain, shortness of breath, or abdominal issues, call your PCP or return to the ED 4. Keep surgical incision clean and dry 5. You will have home health with physical therapy come to your home SUSAN GUEVARA MD Apr 11, 2017 17:33
--- NOTE | 2017-04-11 20:02 | PN ---
Date/Time of Note Date/Time of Note DATE: 04/11/17 TIME: 19:57 Assessment/Plan VTE Prophylaxis VTE Prophylaxis Intervention: SCD's, other Lines/Catheters IV [facility]ter [facility]from [facility] Saline Lock Urinary Cath still in place: No Assessment/Plan Chief Complaint/Hosp Course Pelvic mass with urinary obstruction Problems: Assessment/Plan A- doing well P- concur with d/c or transfer per IM Subjective 24 Hr Interval Summary Free Text/Dictation Feels better eats more and OOB more. Voids OK. Exam/Review of Systems Vital Signs Vitals Vital Signs Date Time Temp Pulse Resp B/P Pulse Ox O2 Delivery O2 Flow Rate FiO2 04/11/17 13:47 98.2 59 18 133/58 95 04/08/17 14:57 Room Air 04/07/17 08:10 2.0 Intake and Output 04/10/17 04/10/17 04/11/17 15:00 23:00 07:00 Intake Total 1160 ml 240 ml Output Total 600 ml Balance 1160 ml -360 ml Exam Resp- clear CVS- NSR Abd- soft, Nt and clean Ext- NT no edema Results Result Diagram: 04/11/1715 04/11/17 0515 Results 24 hrs Laboratory Tests Test 04/10/17 21:37 04/11/17 05:15 04/11/17 08:25 04/11/17 12:12 Bedside Glucose 152 126 141 White Blood Count 5.7 Red Blood Count 3.13 L Hemoglobin 9.0 L Hematocrit 26.4 L Mean Corpuscular Volume 84.3 Mean Corpuscular Hemoglobin 28.8 L Mean Corpuscular Hemoglobin Concent 34.1 Red Cell Distribution Width 13.6 Platelet Count 215 Mean Platelet Volume 9.5 Neutrophils % 49.9 Lymphocytes % 31.0 Monocytes % 12.0 H Eosinophils % 5.8 Basophils % 0.9 Nucleated Red Blood Cells % 0.0 Neutrophils # 2.8 Lymphocytes # 1.8 Monocytes # 0.7 Eosinophils # 0.3 Basophils # 0.1 Nucleated Red Blood Cells # 0.0 Sodium Level 129 L Potassium Level 3.8 Chloride Level 95 L Carbon Dioxide Level 31 Anion Gap 7 L Blood Urea Nitrogen 10 Creatinine 0.74 Glucose Level 117 Calcium Level 8.9 Phosphorus Level 4.2 Magnesium Level 1.2 L Albumin 2.9 L KOKI REAGAN MD Apr 11, 2017 20:02
== END 2017-04-11 19:05 | disposition home or self-care (01) | DRG 742 ==
LOC: E/R 09:11 → MS3 12:34 → PP2 20:02 → MS2 03-31 19:05
PROVIDERS: ADMIT Internal Medicine; ATTEND Internal Medicine
PROC: 0UT24ZZ Resection of Bilateral Ovaries, Percutaneous Endoscopic Approach (ICD-10-PCS; 2017-04-05)
PROC: 0UN14ZZ Release Left Ovary, Percutaneous Endoscopic Approach (ICD-10-PCS; 2017-04-05)
PROC: 0TN74ZZ Release Left Ureter, Percutaneous Endoscopic Approach (ICD-10-PCS; 2017-04-05)
PROC: 0WQF0ZZ Repair Abdominal Wall, Open Approach (ICD-10-PCS; 2017-04-05)
PROC: 0UT74ZZ Resection of Bilateral Fallopian Tubes, Percutaneous Endoscopic Approach (ICD-10-PCS; principal; 2017-04-05 15:30)
DX: D27.1 Benign neoplasm of left ovary (principal); E87.1 Hypo-osmolality and hyponatremia; E11.9 Type 2 diabetes mellitus without complications; D63.8 Anemia in other chronic diseases classified elsewhere; N13.8 Other obstructive and reflux uropathy; I10 Essential (primary) hypertension; N13.4 Hydroureter; K42.9 Umbilical hernia without obstruction or gangrene; N73.6 Female pelvic peritoneal adhesions (postinfective); E03.9 Hypothyroidism, unspecified; R33.8 Other retention of urine; E78.5 Hyperlipidemia, unspecified; I25.10 Atherosclerotic heart disease of native coronary artery without angina pectoris; Z79.84 Long term (current) use of oral hypoglycemic drugs; Z95.5 Presence of coronary angioplasty implant and graft
CPT/HCPCS: 36415; 71010; 74176; 80048; 80053; 80069; 81003; 82270; 82436; 82962; 83036; 83540; 83690; 83735; 83930; 83935; 84100; 84133; 84155; 84300; 84436; 84479; 85025; 85610; 85730; 86304; 86850; 86900; 86901; 86920; 87086; 88104; 88305; 88331; 93005; 97116; 97161; 97530; J0360; J0690; J1170; J1644; J1815; J1885; J2250; J2270; J2405; J2710; J3010; J3475; J3480; J7030; J7042; J7120; J7999

== ENCOUNTER 2017-10-04 11:42 | Emergency (ER) | END 2017-10-04 14:35 | disposition home or self-care (01) ==

== ENCOUNTER 2017-10-13 10:10 | Emergency (ER) | END 2017-10-13 14:34 | disposition home or self-care (01) ==

== ENCOUNTER 2017-10-16 09:03 | Emergency (ER) | END 2017-10-16 13:20 | disposition home or self-care (01) ==

== ENCOUNTER 2018-02-22 20:33 | Emergency (ER) | END 2018-02-23 00:32 | disposition home or self-care (01) ==